=== PATIENT | male | born 1945 | race Caucasian/White ===

== ENCOUNTER 2016-03-15 04:53 | Emergency (ER) | payer MEDICARE ==
[2016-03-15] MEDS ORDERED: HALOPERIDOL 5 MG/ML VIAL (J1630) As Ordered ONE (07:43)
[2016-03-15] MEDS ORDERED: diphenhydrAMINE INJ 50MG/ML VIAL (J1200) As Ordered ONE (07:43)
[2016-03-15 07:51] LABS: BASO % 0.3 % (0.0-1.0); EOS # 0.4 K/mm3 (0.0-0.50); EOS % 4.4 % (0.0-3.0); LARGE UNSTAINED CELL # 0.1 K/mm3 (0.0-0.4); LARGE UNSTAINED CELL % 1.3 % (0.0-4.0); LYMPH # 0.5 K/mm3 (1.5-4.5); LYMPH % 5.7 % (24.0-44.0); MEAN CORPUSCULAR HEMOGLOBIN 32.7 pg (27.0-33.0); MEAN CORPUSCULAR HGB CONC 35.4 g/dl (32.0-36.5); MEAN CORPUSCULAR VOLUME 92.3 fl (80.0-96.0); MONO # 0.7 K/mm3 (0.0-0.8); MONO % 7.4 % (0.0-5.0); NEUTROPHILS # 7.2 K/mm3 (1.8-7.7); NEUTROPHILS % 80.9 % (36.0-66.0); PLATELET COUNT, AUTOMATED 226 k/mm3 (150-450); WHITE BLOOD COUNT 8.8 K/mm3 (4.0-10.0)
[2016-03-15 08:19] LABS: ALBUMIN/GLOBULIN RATIO 0.81 (1.00-1.93); ALKALINE PHOSPHATASE 301 U/L (45-117); ALT/SGPT 317 U/L (12-78); AMYLASE 17 U/L (25-115); ANION GAP 6 MEQ/L (8-16); AST/SGOT 357 U/L (15-37); BILIRUBIN,DIRECT 3.1 MG/DL (0.0-0.2); BILIRUBIN,TOTAL 4.8 MG/DL (0.2-1.0); BLOOD UREA NITROGEN 10 MG/DL (7-18); CALCIUM LEVEL 8.6 MG/DL (8.8-10.2); CARBON DIOXIDE LEVEL 32 MEQ/L (21-32); CHLORIDE LEVEL 102 MEQ/L (98-107); CREATININE FOR GFR 0.89 MG/DL (0.70-1.30); GLOMERULAR FILTRATION RATE > 60.0 (>49); GLUCOSE, FASTING 113 MG/DL (80-110); POTASSIUM SERUM 3.7 MEQ/L (3.5-5.1); SODIUM LEVEL 140 MEQ/L (136-145); TOTAL PROTEIN 6.7 GM/DL (6.4-8.2)
[2016-03-15] MEDS ORDERED: ISOVUE-370 76% 100ML VIAL (Q9967) As Ordered ONE (08:42)
--- NOTE | 2016-03-15 09:21 | REP ---
CT pulmonary angiogram: With IV contrast. History: Chest pain. Comparison studies: CT study of the chest from May 15, 2013. Contrast dose: 100 cc's of Isovue [address] technique: Helical scanning is acquired and overlapping 1.5 mm and contiguous 3 mm axial images are reformatted. In addition, a 3-D work station is deployed to generate thick slab maximum intensity projection images in sagittal and coronal imaging projections. CT pulmonary angiographic findings: There is good opacification of the pulmonary arterial tree and there is no CT evidence of pulmonary embolism. No pleural or pericardial effusion is appreciated. Maximal intensity projection images show no vessel cutoff or filling defect to suggest an embolus. There is a band of plate-like atelectasis in the right lower lobe and another in the left lower lobe versus linear fibrosis. These linear areas are more prominent than on the comparison CT study. A large densely calcified gallstone is visible in the gallbladder unchanged from the prior exam. Adjacent to the medial limb of the left adrenal is an 8 mm nodule. This is unchanged from the study done 2 years ago and is felt to be consistent with a benign adenoma. Adrenals are unchanged bilaterally. There are scattered mediastinal lymph nodes. The largest of these is in the aortopulmonary window region of the left mediastinum. This measures 12 x 27 mm but is unchanged from the study done 2 years earlier. There are two anterior mediastinal lymph nodes also unchanged. No new evidence of adenopathy is seen. The thoracic aorta enhances homogeneously and is normal in caliber and course. No bony destructive lesion is seen. There is no evidence of mass or infiltrate in the lung dunlap. Impression: 1. No CT evidence of pulmonary embolus. 2. Cholelithiasis. 3. Stable mediastinal lymph nodes unchanged from May 15, 2013.4. Bilateral lower lobe linear fibrosis. Signed by Timothy Jaramillo MD 03/15/2016 10:19 A
--- NOTE | 2016-03-15 09:33 | REP ---
CT study of the abdomen and pelvis with IV but without oral contrast: History: Abdominal pain. CT contrast dose: 100 mL of Isovue [address] study January 08, 2016. Findings: Digital dough maker radiographs demonstrate an unremarkable bowel gas pattern. There is linear discoid atelectasis versus fibrosis in the lower lobes bilaterally. No pleural effusion is seen. There is a densely calcified 2.5 cm gallstone within the gallbladder lumen. Minimal gallbladder wall thickening is seen. This is unchanged. Common bile duct is mildly dilated measuring 10 mm in greatest AP dimension. The central intrahepatic ducts are mildly dilated. There is evidence of choledocholithiasis. There are at least three calculi visible within the distal common bile duct, the largest of which measures 8 mm in greatest diameter. The distal most stone is best seen on coronal images and measures 6 mm in diameter. The pancreas is otherwise unremarkable. No adrenal lesion is seen. Kidneys enhance symmetrically. There is a cyst in the anterior cortex of the right kidney, 2.1 cm in diameter. There is another cyst in the upper pole measuring 2.4 cm. There is a 2 mm intrarenal calculus at mid pole level in the left kidney. No retroperitoneal mass or adenopathy is seen. The appendix is surgically absent. There is a Purvis catheter in the urinary bladder. There is a droplet of air within the urinary bladder but there is also some interstitial air in the perineum anterior to the margin of the penis. There is some air along the right spermatic cord as well. Question post instrumentation. The prostate is surgically absent. Seminal vesicles are unremarkable. There is some right pericolic gutter fluid minimal in amount. Bone window settings show no bony destructive or sclerotic lesion. There are degenerative changes in the lumbar spine. No abdominal wall defect is seen. No pelvic or abdominal mass or adenopathy is seen. Impression: 1. Choledocholithiasis with at least three calculi in the distal CBD and dilation of the biliary tract. 2. Cholelithiasis with one calcified 2.5 cm gallstone in the gallbladder. 3. Status post prostatectomy and appendectomy. 4. Purvis catheter in the bladder. There is some subcutaneous emphysematous air in the perineum adjacent to the anterior aspect of the penis and the right spermatic cord of uncertain etiology. Signed by Timothy Jaramillo MD 03/15/2016 10:19 A
[2016-03-15] MEDS ORDERED: ZOSYN 3.375 GM VIAL (J2543) As Ordered ONE (10:28)
--- NOTE | 2016-03-15 11:30 | EDDOCDS ---
Physician Documentation [facility] Name: Benjamin Lake Age: 70 yrs Sex: Male : 1945 Arrival Date: 03/15/2016 Time: 04:53 Bed 14 Private MD: Disposition: 03/15/16 10:42 Transfer ordered to [facility]. Diagnosis are Cholelithiasis - choledocholithiasis wiht abnormal liver function tests; s/p robotic lap prostatectomy with subcutaneous emphysema in perineum , Abdominal and pelvic pain, Hiccough - intractable. - Reason for transfer: Higher level of care. - Accepting physician is thais. - Condition is Critical. - Problem is new. - Symptoms are unchanged. Historical: - Allergies: No known drug Allergies; - Home Meds: 1. Lipitor 20 mg Oral tab 2. [place] 5-325 mg Oral tab 3. aspirin 81 mg Oral tab 4. cyclobenzaprine 10 mg Oral tab 5. Vitamin D Oral 2000 units 6. Flomax 0.4 mg Oral cp24 7. indomethacin 25 mg Oral cap 8. Calcium + Vitamin D 600 mg calcium- 200 unit Oral tab 9. Avapro 150 mg Oral tab 10. atenolol 50 mg Oral tab 11. Klor-Con 10 10 mEq Oral TbER 12. chlorthalidone 25 mg Oral tab 13. Cardizem 120 mg Oral tab 14. 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 No barriers to communication noted, The patient speaks fluent [place]ian, Speaks appropriately for age. - Family history: Not pertinent. - : The pt / caregiver states he / she is not on anticoagulants. Home medication list is obtained from the patient. - Exposure Risk Screening:: None identified. Vital Signs: 03/15 05:11 BP 126 / 66; Pulse 60; Resp 20; Temp 98.1; Pulse Ox 97% ; Weight 90.72 kg / 200 lbs; ko2 Height 5 ft. 9 in. (175.26 cm); Pain 8/10; 05:27 BP 140 / 63 (auto/); jp6 05:28 Pulse 54 MON; Pulse Ox 97% ; jp6 05:42 BP 138 / 66 (auto/); jp6 05:43 Pulse 54 MON; Pulse Ox 98% ; jp6 05:57 BP 130 / 74 (auto/); jp6 05:58 Pulse 56 MON; Pulse Ox 99% ; jp6 06:12 BP 133 / 63 (auto/); js13 06:12 Pulse 58 MON; Pulse Ox 99% ; js13 06:27 BP 135 / 65 (auto/); js13 06:27 Pulse 56 MON; Pulse Ox 97% ; js13 06:42 BP 131 / 70 (auto/); js13 06:42 Pulse 62 MON; Pulse Ox 98% ; js13 06:57 BP 131 / 70 (auto/); js13 06:57 Pulse 62 MON; Resp 16; Pulse Ox 99% on R/A; js13 07:12 BP 130 / 70 (auto/); js13 07:12 Pulse 62 MON; Resp 16; Pulse Ox 97% on R/A; js13 07:27 BP 134 / 73 (auto/); js13 07:27 Pulse 62 MON; Resp 16; Pulse Ox 99% on R/A; js13 07:42 BP 114 / 65 (auto/); js13 07:42 Pulse 52 MON; Resp 16; Pulse Ox 98% on R/A; js13 07:57 BP 147 / 77 (auto/); js13 07:57 Pulse 66 MON; Resp 16; Pulse Ox 98% on R/A; js13 09:12 BP 139 / 78 (auto/); js13 09:12 Pulse 66 MON; Resp 16; Pulse Ox 99% on R/A; js13 09:27 BP 142 / 74 (auto/); js13 09:27 Pulse 60 MON; Resp 16; Pulse Ox 99% on R/A; js13 09:42 BP 169 / 84 (auto/); js13 09:42 Pulse 60 MON; Resp 16; Pulse Ox 99% on R/A; js13 09:57 BP 155 / 82 (auto/); js13 09:57 Pulse 64 MON; Resp 16; Pulse Ox 98% on R/A; js13 10:12 BP 141 / 75 (auto/); js13 10:12 Pulse 60 MON; Resp 16; Pulse Ox 98% on R/A; js13 10:42 BP 156 / 78 (auto/); js13 10:42 Pulse 56 MON; Resp 16; Pulse Ox 100% on R/A; js13 10:57 BP 144 / 75 (auto/); js13 10:57 Pulse 60 MON; Resp 16; Temp 98.5(O); Pulse Ox 100% on R/A; js13 11:27 Pulse 58 MON; Resp 16; Temp 98.5(O); Pulse Ox 100% on R/A; Pain 0/10; js13 11:27 BP 146 / 82 (auto/); js13 05:11 Body Mass Index 29.53 (90.72 kg, 175.26 cm) ko2 MDM: 05:24 [facility] Payment Agreement was scanned into [employer] and attached to record. [facility] 06:39 Financial registration complete. pm4 07:09 IV Saline Lock ordered. cs11 07:09 NS 0.9% 500 ml IV at bolus once ordered. cs11 07:09 Haloperidol 5 mg IVP once ordered. cs11 07:09 diphenhydrAMINE 25 mg IVP once ordered. cs11 07:10 CBC with Diff Ordered. EDMS 07:10 MED Profile Ordered. EDMS 07:10 Liver Profile Ordered. EDMS 07:10 Amylase Ordered. EDMS 07:10 Lipase Ordered. EDMS 07:10 Urinalysis Ordered. EDMS 07:10 Urine Culture Ordered. EDMS 07:10 CT Chest Angio R/O PE Ordered. EDMS 07:10 CT ABD & PELVIS: IV Contrast Only Ordered. EDMS 07:17 Lactic Acid (Hicks tube on ice) Ordered. EDMS 08:13 CBC with Diff Reviewed. ml 08:42 MED Profile Reviewed. ml 08:42 Liver Profile Reviewed. ml 08:42 Amylase Reviewed. ml 08:42 Urinalysis Reviewed. ml 08:42 Lactic Acid (Hicks tube on ice) Reviewed. ml 08:42 Lipase Reviewed. ml 08:43 NS 0.9% 1000 ml IV at 150 mL/hr continuous ordered. ml 10:18 Piperacillin-Tazobactam 3.375 grams IVPB once over 30 mins; dilute in 50mL of NS or D5W ml ordered. 10:19 -Blood Culture (Adults Only), peripheral from different site, or from device/port/PICC ml etc. if present ordered. 10:20 -Blood Culture Ordered. EDMS 10:37 CT Chest Angio R/O PE Reviewed. ml 10:37 CT ABD & PELVIS: IV Contrast Only Reviewed. ml 10:42 -Blood Culture (Adults Only), peripheral from different site, or from device/port/PICC js13 etc. if present complete. 11:24 NS 0.9% 1000 ml IV at 100 mL/hr continuous ordered. js13 Administered Medications: 07:52 Drug: NS 0.9% 500 ml [sodium chloride 0.9 % intravenous solution] Route: IV; Rate: js13 bolus; Site: left antecubital; 09:14 Follow up: IV Status: Completed infusion; IV Intake: 500ml js13 07:52 Drug: Haloperidol 5 mg [haloperidol lactate 5 mg/mL injection solution (1 mL)] Route: js13 IVP; Site: left antecubital; 07:52 Drug: diphenhydrAMINE 25 mg [diphenhydramine 50 mg/mL injection solution (0.5 mL)] js13 Route: IVP; Site: left antecubital; 08:45 Drug: NS 0.9% 1000 ml [sodium chloride 0.9 % intravenous solution] Route: IV; Rate: 150 js13 mL/hr; Site: left antecubital; 11:24 Follow up: IV Status: Infusion discontinued; IV Intake: 450ml js13 10:35 Drug: Piperacillin-Tazobactam 3.375 grams [piperacillin-tazobactam 3.375 gram js13 intravenous solution] Route: IVPB; Infused Over: 30 mins; Site: left antecubital; 11:24 Follow up: IV Status: Completed infusion; IV Intake: 50ml js13 11:20 Drug: NS 0.9% 1000 ml [sodium chloride 0.9 % intravenous solution] Route: IV; Rate: 100 js13 mL/hr; Site: left antecubital; Signatures: Dispatcher [employer] Kendrick Baker MD MD ml Sullivan, JenniferRN RN js13 Angel Farmer DO DO cs11 Teena Manzanares RN RN amanda2 Sonia Walker Jessica, RN RN jp6 Edil Qiu, Reg Reg pm4 The chart was reviewed and I authenticate all verbal orders and agree with the evaluation and treatment provided.Attachments: 05:24 [facility] Payment Agreement [facility] MTDD
--- NOTE | 2016-03-15 11:30 | EDDOCDS ---
Nurse's Notes [facility] Name: Benjamin Lake Age: 70 yrs Sex: Male : 1945 Arrival Date: 03/15/2016 Time: 04:53 Bed 14 Private MD: Diagnosis: Cholelithiasis-choledocholithiasis wiht abnormal liver function tests; s/p robotic lap prostatectomy with subcutaneous emphysema in perineum ;Abdominal and pelvic pain;Hiccough-intractable Presentation: 03/15 05:03 Presenting complaint: Patient states: had prostate surgery Tuesday in [place]. Was d/c ko2 on and got hiccups on the way home. pt states the hiccups haven't gone away and he is starting to feel short of breath. Suicide/Homicide risk assessment- the patient denies having any suicidal and/or homicidal ideations and does not present with any other emotional, behavioral or mental health complaints. Status: Patient is not a senior field service engineer or dependent. Transition of care: patient was not received from another setting of care. 05:03 Method Of Arrival: Walkin/Carried/Asstd ko2 05:15 Adult Sepsis Screening: The patient does not have new or worsening altered mentation. ko2 Patient's respiratory rate is less than 22. Systolic blood pressure is greater than 100. Patient has a qSOFA score of 0- Negative Sepsis Screen. 05:15 Acuity: ZINA Level 3 ko2 Triage Assessment: 05:10 General: Appears distressed, Behavior is cooperative. Neurological: No deficits noted. ko2 Respiratory: Reports shortness of breath from hiccups. : Purvis in place. Musculoskeletal: Range of motion intact in all extremities. Historical: - Allergies: No known drug Allergies; - Home Meds: 1. Lipitor 20 mg Oral tab 2. Halls 5-325 mg Oral tab 3. aspirin 81 mg Oral tab 4. cyclobenzaprine 10 mg Oral tab 5. Vitamin D Oral 2000 units 6. Flomax 0.4 mg Oral cp24 7. indomethacin 25 mg Oral cap 8. Calcium + Vitamin D 600 mg calcium- 200 unit Oral tab 9. Avapro 150 mg Oral tab 10. atenolol 50 mg Oral tab 11. Klor-Con 10 10 mEq Oral TbER 12. chlorthalidone 25 mg Oral tab 13. Cardizem 120 mg Oral tab 14. 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 No barriers to communication noted, The patient speaks fluent Albanian, Speaks appropriately for age. - Family history: Not pertinent. - : The pt / caregiver states he / she is not on anticoagulants. Home medication list is obtained from the patient. - Exposure Risk Screening:: None identified. Screenin:00 Screening information is obtained from the patient. Fall risk: No risks identified. jp6 Assistance ADL's: requires no assistance with activities of daily living. Abuse/DV Screen: The patient / caregiver reports he/she is: not in a situation that causes fear, pain or injury. Nutritional screening: No deficits noted. home support is adequate. 10:57 Advance Directives: There is no active DNR order. js13 Assessment: 06:00 General: Appears distressed, uncomfortable, Behavior is appropriate for age, jp6 cooperative. Pain: Denies pain. Neurological: Level of Consciousness is awake, alert, Oriented to person, place, time. EENT: No deficits noted. Cardiovascular: No deficits noted. Heart tones S1 S2 present. Respiratory: Breath sounds are clear bilaterally. GI: Abdomen is distended, other no real bm since Tuesday Bowel sounds hypoactive in right upper quadrant and left upper quadrant none heard other quadrants Abd is soft and non tender X 4 quads. Reports constipation, hiccups since surgery. : Purvis in place to gravity drainage Urine is blood tinged. Derm: Skin is pink, warm & dry. Musculoskeletal: No deficits noted. 08:07 Adult Sepsis Screening: The patient does not have new or worsening altered mentation. js13 Patient's respiratory rate is less than 22. Systolic blood pressure is greater than 100. Patient has a qSOFA score of 0- Negative Sepsis Screen. General: Appears in no apparent distress, Behavior is appropriate for age, cooperative. Pain: Denies pain. Neurological: Level of Consciousness is awake, alert. Respiratory: Airway is patent Respiratory effort is even, unlabored, Respiratory pattern is regular, symmetrical. : Purvis in place to gravity drainage Urine is blood tinged. Derm: Skin is pink, warm & dry. 09:22 General: Appears in no apparent distress, comfortable, Behavior is appropriate for age, js13 cooperative. General: Hiccups are gone.. Pain: Denies pain. Neurological: Level of Consciousness is awake, alert. Cardiovascular: Rhythm is sinus rhythm Chest pain is denied. Respiratory: Airway is patent Respiratory effort is even, unlabored, Respiratory pattern is regular, symmetrical, Breath sounds are clear. GI: Abdomen is distended, Bowel sounds hypoactive in left upper quadrant and right upper quadrant Abd is soft and non tender. Derm: Skin is pink, warm & dry. 10:00 Adult Sepsis Screening: The patient does not have new or worsening altered mentation. js13 Patient's respiratory rate is less than 22. Systolic blood pressure is greater than 100. Patient has a qSOFA score of 0- Negative Sepsis Screen. 10:43 General: Appears in no apparent distress, comfortable, Behavior is appropriate for age, js13 cooperative. Pain: Denies pain. Neurological: Level of Consciousness is awake, alert. Cardiovascular: Rhythm is sinus rhythm Chest pain is denied. Respiratory: Airway is patent Respiratory effort is even, unlabored, Respiratory pattern is regular, symmetrical, Breath sounds are clear. GI: Abdomen is distended, Bowel sounds hypoactive in left upper quadrant and right upper quadrant Abd is soft and non tender. Derm: Skin is pink, warm & dry. 11:22 General: Appears in no apparent distress, comfortable, Behavior is appropriate for age, js13 cooperative. Pain: Denies pain. Neurological: Level of Consciousness is awake, alert. Cardiovascular: Rhythm is sinus rhythm Chest pain is denied. Respiratory: Airway is patent Respiratory effort is even, unlabored, Respiratory pattern is regular, symmetrical, Breath sounds are clear. GI: Abdomen is distended, Bowel sounds hypoactive in left upper quadrant and right upper quadrant Abd is soft and non tender. : Purvis in place to gravity drainage Urine is blood tinged. Derm: Skin is pink, warm & dry. Vital Signs: 05:11 BP 126 / 66; Pulse 60; Resp 20; Temp 98.1; Pulse Ox 97% ; Weight 90.72 kg; Height 5 ft. ko2 9 in. (175.26 cm); Pain 8/10; 05:27 BP 140 / 63 (auto/); jp6 05:28 Pulse 54 MON; Pulse Ox 97% ; jp6 05:42 BP 138 / 66 (auto/); jp6 05:43 Pulse 54 MON; Pulse Ox 98% ; jp6 05:57 BP 130 / 74 (auto/); jp6 05:58 Pulse 56 MON; Pulse Ox 99% ; jp6 06:12 BP 133 / 63 (auto/); js13 06:12 Pulse 58 MON; Pulse Ox 99% ; js13 06:27 BP 135 / 65 (auto/); js13 06:27 Pulse 56 MON; Pulse Ox 97% ; js13 06:42 BP 131 / 70 (auto/); js13 06:42 Pulse 62 MON; Pulse Ox 98% ; js13 06:57 BP 131 / 70 (auto/); js13 06:57 Pulse 62 MON; Resp 16; Pulse Ox 99% on R/A; js13 07:12 BP 130 / 70 (auto/); js13 07:12 Pulse 62 MON; Resp 16; Pulse Ox 97% on R/A; js13 07:27 BP 134 / 73 (auto/); js13 07:27 Pulse 62 MON; Resp 16; Pulse Ox 99% on R/A; js13 07:42 BP 114 / 65 (auto/); js13 07:42 Pulse 52 MON; Resp 16; Pulse Ox 98% on R/A; js13 07:57 BP 147 / 77 (auto/); js13 07:57 Pulse 66 MON; Resp 16; Pulse Ox 98% on R/A; js13 09:12 BP 139 / 78 (auto/); js13 09:12 Pulse 66 MON; Resp 16; Pulse Ox 99% on R/A; js13 09:27 BP 142 / 74 (auto/); js13 09:27 Pulse 60 MON; Resp 16; Pulse Ox 99% on R/A; js13 09:42 BP 169 / 84 (auto/); js13 09:42 Pulse 60 MON; Resp 16; Pulse Ox 99% on R/A; js13 09:57 BP 155 / 82 (auto/); js13 09:57 Pulse 64 MON; Resp 16; Pulse Ox 98% on R/A; js13 10:12 BP 141 / 75 (auto/); js13 10:12 Pulse 60 MON; Resp 16; Pulse Ox 98% on R/A; js13 10:42 BP 156 / 78 (auto/); js13 10:42 Pulse 56 MON; Resp 16; Pulse Ox 100% on R/A; js13 10:57 BP 144 / 75 (auto/); js13 10:57 Pulse 60 MON; Resp 16; Temp 98.5(O); Pulse Ox 100% on R/A; js13 11:27 Pulse 58 MON; Resp 16; Temp 98.5(O); Pulse Ox 100% on R/A; Pain 0/10; js13 11:27 BP 146 / 82 (auto/); js13 05:11 Body Mass Index 29.53 (90.72 kg, 175.26 cm) ko Vitals: 05:11 Log In Time: March 15, 2016 at 04:53. ko2 ED Course: 04:55 Patient visited by Edil Qiu, Reg. pm4 04:55 Patient moved to Waiting pm4 05:03 Patient moved to Triage 1 ko2 05:15 Triage Initiated ko2 05:15 Patient moved to Waiting ko2 05:23 Patient moved to Feb 05:24 [facility] Payment Agreement was scanned into [employer] and attached to record. [facility] 05:30 Patient visited by Ivone Amaro PCA. mary 05:30 Pt greeted and oriented to ED. Patient advised of names of staff involved in care, mary location of call apple, wait times and NPO status. Accompanied by Significant Other, Patient has correct armband on for positive identification. Placed in gown. Bed in low position. Call light in reach. Side rails up X2. lunchroom monitor on. Pulse ox on. NIBP on. 05:35 Dawn Griffith RN is Primary Nurse. jp6 06:00 Patient visited by Dawn Griffith RN. jp6 06:38 Angel Farmer DO is Attending Physician. cs11 06:38 Patient visited by Angel Farmer DO. cs11 07:14 Patient visited by Isabelle Lala PCA. jlf 07:15 Attending Physician role handed off by Angel Farmer DO ml 07:15 Kendrick Zhuo MD is Attending Physician. ml 07:52 Inserted saline lock: 18 gauge in left antecubital area and blood collected. The js13 patient tolerated the procedure well. No procedures done that require assistance. Labs drawn. (by ED staff). Sent per order to lab. 08:09 Patient visited by Jennifer Angeles RN. js13 08:42 Patient visited by Isabelle Lala PCA. jlf 09:23 Patient visited by Jennifer Angeles RN. js13 09:47 CT Chest Angio R/O PE Returned. EDMS 09:47 CT ABD & PELVIS: IV Contrast Only Returned. EDMS 10:22 Patient visited by Talisha Levy RN. ead 10:29 -Blood Culture Sent. ead 10:44 Patient visited by Jennifer Angeles RN. js13 10:47 CT Chest Angio R/O PE Returned. EDMS 10:47 CT ABD & PELVIS: IV Contrast Only Returned. EDMS 10:57 The patient / caregiver is instructed regarding the plan of care and ED course. js13 Administered Medications: 07:52 Drug: NS 0.9% 500 ml [sodium chloride 0.9 % intravenous solution] Route: IV; Rate: js13 bolus; Site: left antecubital; 09:14 Follow up: IV Status: Completed infusion; IV Intake: 500ml js13 07:52 Drug: Haloperidol 5 mg [haloperidol lactate 5 mg/mL injection solution (1 mL)] Route: js13 IVP; Site: left antecubital; 07:52 Drug: diphenhydrAMINE 25 mg [diphenhydramine 50 mg/mL injection solution (0.5 mL)] js13 Route: IVP; Site: left antecubital; 08:45 Drug: NS 0.9% 1000 ml [sodium chloride 0.9 % intravenous solution] Route: IV; Rate: 150 js13 mL/hr; Site: left antecubital; 11:24 Follow up: IV Status: Infusion discontinued; IV Intake: 450ml js13 10:35 Drug: Piperacillin-Tazobactam 3.375 grams [piperacillin-tazobactam 3.375 gram js13 intravenous solution] Route: IVPB; Infused Over: 30 mins; Site: left antecubital; 11:24 Follow up: IV Status: Completed infusion; IV Intake: 50ml js13 11:20 Drug: NS 0.9% 1000 ml [sodium chloride 0.9 % intravenous solution] Route: IV; Rate: 100 js13 mL/hr; Site: left antecubital; Intake: 09:14 IV: 500.00ml; Total: 500.00ml. js13 11:24 IV: 450.00ml; Total: 950.00ml. js13 11:24 IV: 50.00ml; Total: 1000.00ml. js13 Output: 11:28 Urine: 900.00ml (Purvis); Total: 900.00ml. js13 Order Results: Lab Order: CBC with Diff; SPEC'M 03/15/16 07:40 Test: WHITE BLOOD COUNT; Value: 8.8; Range: 4.0-10.0; Units: K/mm3; Status: F Test: RED BLOOD COUNT; Value: 4.21; Range: 4.30-6.10; Abnormal: Below low normal; Units: M/mm3; Status: F Test: HEMOGLOBIN; Value: 13.8; Range: 14.0-18.0; Abnormal: Below low normal; Units: g/dl; Status: F Test: HEMATOCRIT; Value: 38.9; Range: 42.0-52.0; Abnormal: Below low normal; Units: %; Status: F Test: MEAN CORPUSCULAR VOLUME; Value: 92.3; Range: 80.0-96.0; Units: fl; Status: F Test: MEAN CORPUSCULAR HEMOGLOBIN; Value: 32.7; Range: 27.0-33.0; Units: pg; Status: F Test: MEAN CORPUSCULAR HGB CONC; Value: 35.4; Range: 32.0-36.5; Units: g/dl; Status: F Test: RED CELL DISTRIBUTION WIDTH; Value: 13.0; Range: 11.5-14.5; Units: %; Status: F Test: PLATELET COUNT, AUTOMATED; Value: 226; Range: 150-450; Units: k/mm3; Status: F Test: NEUTROPHILS %; Value: 80.9; Range: 36.0-66.0; Abnormal: Above high normal; Units: %; Status: F Test: LYMPH %; Value: 5.7; Range: 24.0-44.0; Abnormal: Below low normal; Units: %; Status: F Test: MONO %; Value: 7.4; Range: 0.0-5.0; Abnormal: Above high normal; Units: %; Status: F Test: EOS %; Value: 4.4; Range: 0.0-3.0; Abnormal: Above high normal; Units: %; Status: F Test: BASO %; Value: 0.3; Range: 0.0-1.0; Units: %; Status: F Test: LARGE UNSTAINED CELL %; Value: 1.3; Range: 0.0-4.0; Units: %; Status: F Test: NEUTROPHILS #; Value: 7.2; Range: 1.8-7.7; Units: K/mm3; Status: F Test: LYMPH #; Value: 0.5; Range: 1.5-4.5; Abnormal: Below low normal; Units: K/mm3; Status: F Test: MONO #; Value: 0.7; Range: 0.0-0.8; Units: K/mm3; Status: F Test: EOS #; Value: 0.4; Range: 0.0-0.50; Units: K/mm3; Status: F Test: BASO #; Value: 0.0; Range: 0.0-0.2; Units: K/mm3; Status: F Test: LARGE UNSTAINED CELL #; Value: 0.1; Range: 0.0-0.4; Units: K/mm3; Status: F Lab Order: MED Profile; SPEC'M 03/15/16 07:40 Test: GLUCOSE, FASTING; Value: 113; Range: 80-110; Abnormal: Above high normal; Units: MG/DL; Status: F Test: BLOOD UREA NITROGEN; Value: 10; Range: 7-18; Units: MG/DL; Status: F Test: CREATININE FOR GFR; Value: 0.89; Range: 0.70-1.30; Units: MG/DL; Status: F Test: GLOMERULAR FILTRATION RATE; Value: > 60.0; Range: >49; Status: F Test: SODIUM LEVEL; Value: 140; Range: 136-145; Units: MEQ/L; Status: F Test: POTASSIUM SERUM; Value: 3.7; Range: 3.5-5.1; Units: MEQ/L; Status: F Test: CHLORIDE LEVEL; Value: 102; Range: 98-107; Units: MEQ/L; Status: F Test: CARBON DIOXIDE LEVEL; Value: 32; Range: 21-32; Units: MEQ/L; Status: F Test: ANION GAP; Value: 6; Range: 8-16; Abnormal: Below low normal; Units: MEQ/L; Status: F Test: CALCIUM LEVEL; Value: 8.6; Range: 8.8-10.2; Abnormal: Below low normal; Units: MG/DL; Status: F Test Note: ; Units are mL/min/1.73 m2 Chronic Kidney Disease Staging per NKF: Stage I & II GFR >=60 Normal to Mildly Decreased Stage III GFR 30-59 Moderately Decreased Stage IV GFR 15-29 Severely Decreased Stage V GFR <15 Very Little GFR Left ESRD GFR <15 on CLINICAL TRAINING COORDINATOR Lab Order: Liver Profile; 03/15/16 07:40 Test: AST/SGOT; Value: 357; Range: 15-37; Abnormal: Above high normal; Units: U/L; Status: F Test: ALT/SGPT; Value: 317; Range: 12-78; Abnormal: Above high normal; Units: U/L; Status: F Test: ALKALINE PHOSPHATASE; Value: 301; Range: 45-117; Abnormal: Above high normal; Units: U/L; Status: F Test: BILIRUBIN,TOTAL; Value: 4.8; Range: 0.2-1.0; Abnormal: Above high normal; Units: MG/DL; Status: F Test: BILIRUBIN,DIRECT; Value: 3.1; Range: 0.0-0.2; Abnormal: Above high normal; Units: MG/DL; Status: F Test: TOTAL PROTEIN; Value: 6.7; Range: 6.4-8.2; Units: GM/DL; Status: F Test: ALBUMIN; Value: 3.0; Range: 3.2-5.2; Abnormal: Below low normal; Units: GM/DL; Status: F Test: ALBUMIN/GLOBULIN RATIO; Value: 0.81; Range: 1.00-1.93; Abnormal: Below low normal; Status: F Lab Order: Amylase; 03/15/16 07:40 Test: AMYLASE; Value: 17; Range: 25-115; Abnormal: Below low normal; Units: U/L; Status: F Lab Order: Lipase; 03/15/16 07:40 Test: LIPASE; Value: 87; Range: 73-393; Units: U/L; Status: F Lab Order: Urinalysis; SPEC'M 03/15/16 08:28 Test: APPEARANCE, URINE; Value: CLEAR; Range: CLEAR; Status: F Test: COLOR, URINE; Value: SANAZ; Range: YELLOW; Status: F Test: PH,URINE; Value: 7.0; Range: 5.0-9.0; Units: UNITS; Status: F Test: SPECIFIC GRAVITY URINE AUTO; Value: 1.006; Range: 1.002-1.035; Status: F Test: PROTEIN, URINE AUTO; Value: NEGATIVE; Range: NEGATIVE; Units: mg/dL; Status: F Test: GLUCOSE, URINE (UA) AUTO; Value: NEGATIVE; Range: NEGATIVE; Units: mg/dL; Status: F Test: KETONE, URINE AUTO; Value: NEGATIVE; Range: NEGATIVE; Units: mg/dL; Status: F Test: UROBILINOGEN, URINE AUTO; Value: 4.0; Range: 0.0-2.0; Abnormal: Above high normal; Units: mg/dL; Status: F Test: BILIRUBIN, URINE AUTO; Value: NEGATIVE; Range: NEGATIVE; Status: F Test: NITRITE, URINE AUTO; Value: NEGATIVE; Range: NEGATIVE; Status: F Test: LEUKOCYTE ESTERASE, URINE AUTO; Value: 1+; Range: NEGATIVE; Abnormal: Above high normal; Status: F Test: BLOOD, URINE BLOOD; Value: 3+; Range: NEGATIVE; Abnormal: Above high normal; Status: F Test: WBC, URINE AUTO; Value: 6; Range: 0-3; Abnormal: Above high normal; Units: /HPF; Status: F Test: RBC, URINE AUTO; Value: 13; Range: 0-3; Abnormal: Above high normal; Units: /HPF; Status: F Test: BACTERIA, URINE AUTO; Value: 1+; Range: NEGATIVE; Abnormal: Above high normal; Status: F Test: SQUAMOUS EPITHELIAL CELL UR AU; Value: 0; Range: 0-6; Units: /HPF; Status: F Test: MUCUS, URINE; Value: SMALL; Range: NEGATIVE; Status: F Test: HYALINE CAST, URINE AUTO; Value: 0; Range: 0-1; Units: /LPF; Status: F Lab Order: Lactic Acid (Hicks tube on ice); SPEC'M 03/15/16 07:40 Test: LACTIC ACID LEVEL, LACTATE; Value: 2.8; Range: 0.4-2.0; Abnormal: Above upper panic limits; Units: MMOL/L; Status: F Radiology Order: CT Chest Angio R/O PE Test: CT Chest Angio R/O PE REASON FOR EXAMINATION: Chest Pain; CT pulmonary angiogram: With IV contrast.; ; History: Chest pain.; ; Comparison studies: CT study of the chest from May 15, 2013.; ; Contrast dose: 100 cc's of Isovue 370 are administered intravenously.; ; CT technique: Helical scanning is acquired and overlapping 1.5 mm and contiguous; 3 mm axial images are reformatted. In addition, a 3-D work station is deployed; to generate thick slab maximum intensity projection images in sagittal and; coronal imaging projections.; ; CT pulmonary angiographic findings: There is good opacification of the pulmonary; arterial tree and there is no CT evidence of pulmonary embolism. No pleural or; pericardial effusion is appreciated. Maximal intensity projection images show no; vessel cutoff or filling defect to suggest an embolus. There is a band of; plate-like atelectasis in the right lower lobe and another in the left lower lobe; versus linear fibrosis. These linear areas are more prominent than on the; comparison CT study. A large densely calcified gallstone is visible in the; gallbladder unchanged from the prior exam. Adjacent to the medial limb of the; left adrenal is an 8 mm nodule. This is unchanged from the study done 2 years; ago and is felt to be consistent with a benign adenoma. Adrenals are unchanged; bilaterally.; ; There are scattered mediastinal lymph nodes. The largest of these is in the; aortopulmonary window region of the left mediastinum. This measures 12 x 27 mm; but is unchanged from the study done 2 years earlier. There are two anterior; mediastinal lymph nodes also unchanged. No new evidence of adenopathy is seen.; The thoracic aorta enhances homogeneously and is normal in caliber and course.; ; No bony destructive lesion is seen. There is no evidence of mass or infiltrate; in the lung dunlap.; ; Impression:; ; 1. No CT evidence of pulmonary embolus.; ; 2. Cholelithiasis.; ; 3. Stable mediastinal lymph nodes unchanged from May 15, 2013.4. Bilateral; lower lobe linear fibrosis.; ; ; ; ; Signed by; Timothy Jaramillo MD 03/15/2016 10:19 A; Radiology Order: CT ABD & PELVIS: IV Contrast Only Test: CT ABD & PELVIS: IV Contrast Only REASON FOR EXAMINATION: Abdomen Pain; CT study of the abdomen and pelvis with IV but without oral contrast:; ; History: Abdominal pain.; ; CT contrast dose: 100 mL of Isovue 370 is administered.; ; Comparison CT study January 08, 2016.; ; Findings: Digital band salvager radiographs demonstrate an unremarkable bowel gas; pattern. There is linear discoid atelectasis versus fibrosis in the lower lobes; bilaterally. No pleural effusion is seen. There is a densely calcified 2.5 cm; gallstone within the gallbladder lumen. Minimal gallbladder wall thickening is; seen. This is unchanged. Common bile duct is mildly dilated measuring 10 mm in; greatest AP dimension. The central intrahepatic ducts are mildly dilated. There; is evidence of choledocholithiasis. There are at least three calculi visible; within the distal common bile duct, the largest of which measures 8 mm in; greatest diameter. The distal most stone is best seen on coronal images and; measures 6 mm in diameter. The pancreas is otherwise unremarkable. No adrenal; lesion is seen. Kidneys enhance symmetrically. There is a cyst in the anterior; cortex of the right kidney, 2.1 cm in diameter. There is another cyst in the; upper pole measuring 2.4 cm. There is a 2 mm intrarenal calculus at mid pole; level in the left kidney. No retroperitoneal mass or adenopathy is seen.; ; The appendix is surgically absent. There is a Purvis catheter in the urinary; bladder. There is a droplet of air within the urinary bladder but there is also; some interstitial air in the perineum anterior to the margin of the penis. There; is some air along the right spermatic cord as well. Question post; instrumentation. The prostate is surgically absent. Seminal vesicles are; unremarkable. There is some right pericolic gutter fluid minimal in amount.; ; Bone window settings show no bony destructive or sclerotic lesion. There are; degenerative changes in the lumbar spine. No abdominal wall defect is seen. No; pelvic or abdominal mass or adenopathy is seen.; ; Impression:; ; 1. Choledocholithiasis with at least three calculi in the distal CBD and; dilation of the biliary tract.; ; 2. Cholelithiasis with one calcified 2.5 cm gallstone in the gallbladder.; ; 3. Status post prostatectomy and appendectomy.; ; 4. Purvis catheter in the bladder. There is some subcutaneous emphysematous air; in the perineum adjacent to the anterior aspect of the penis and the right; spermatic cord of uncertain etiology.; ; ; Signed by; Timothy Jaramillo MD 03/15/2016 10:19 A; Outcome: 10:42 ER care complete, transfer ordered by Provider. 10:57 Discharge Assessment: Patient awake, alert and oriented x 3. No cognitive and/or js13 functional deficits noted. Patient verbalized understanding of disposition instructions. patient administered narcotics - no. The following High Risk Discharge criteria are identified: None. Transferred to [facility]. by EMS ground [facility] report to accompanying personnel Joel Peters [employer] [facility] [facility] EMT, Transfer form completed. x-rays sent w/ patient Note: Report called to Lv Menchaca RN. Condition: stable. CT Study completed. Property :Personal belongings accompany Pt. 11:29 Patient left the ED. js13 Signatures: Dispatcher [employer] EDMS Kendrick Zhou MD MD ml Newman, Jill New, RN RN Ivone Quigley, LANDSCAPE CREW MEMBER LANDSCAPE [employer]W MEMBER mary Jennifer Angeles,RN RN js13 Angel Farmer, DO cs11 Isabelle Lala, LANDSCAPE CREW MEMBER LANDSCAPE CREW MEMBER jlf Talisha Levy,RN RN Teena Joshua,RN RN Sonia Guan Jessica,RN RN jp6 Edil Qiu, Reg Reg pm4 Corrections: (The following items were deleted from the chart) 06:11 05:30 BP 151 / 77 Auto; jp6 jp6 06:11 05:30 Pulse 72bpm; Monitor; Pulse Ox 94%; jp6 jp6 06:11 05:45 BP 146 / 81 Auto; jp6 jp6 06:11 05:45 Pulse 72bpm; Monitor; Pulse Ox 94%; jp6 jp6 06:11 06:00 BP 131 / 81 Auto; jp6 jp6 06:11 06:00 Pulse 68bpm; Monitor; Pulse Ox 94%; jp6 jp6 09:21 09:20 General: Report given to Sadaf Bragg RN. js13 js13 11:27 11:12 BP 146 / 82 Auto; js js13 11:27 11:12 Pulse 58bpm; MonitorResp 16bpm; Pulse Ox 100% RA; Temp 98.5F Oral; Pain 0/10; [id number] [id number]
--- NOTE | 2016-03-17 12:30 | EDDOCDS ---
Nurse's Notes [facility] Name: Benjamin Lake Age: 70 yrs Sex: Male : 1945 Arrival Date: 03/15/2016 Time: 04:53 Bed 14 Private MD: Diagnosis: Cholelithiasis-choledocholithiasis wiht abnormal liver function tests; s/p robotic lap prostatectomy with subcutaneous emphysema in perineum ;Abdominal and pelvic pain;Hiccough-intractable Presentation: 03/15 05:03 Presenting complaint: Patient states: had prostate surgery Tuesday in [place]. Was d/c ko2 on and got hiccups on the way home. pt states the hiccups haven't gone away and he is starting to feel short of breath. Suicide/Homicide risk assessment- the patient denies having any suicidal and/or homicidal ideations and does not present with any other emotional, behavioral or mental health complaints. Status: Patient is not a line service technician or dependent. Transition of care: patient was not received from another setting of care. 05:03 Method Of Arrival: Walkin/Carried/Asstd ko2 05:15 Adult Sepsis Screening: The patient does not have new or worsening altered mentation. ko2 Patient's respiratory rate is less than 22. Systolic blood pressure is greater than 100. Patient has a qSOFA score of 0- Negative Sepsis Screen. 05:15 Acuity: ZINA Level 3 ko2 Triage Assessment: 05:10 General: Appears distressed, Behavior is cooperative. Neurological: No deficits noted. ko2 Respiratory: Reports shortness of breath from hiccups. : Purvis in place. Musculoskeletal: Range of motion intact in all extremities. Historical: - Allergies: No known drug Allergies; - Home Meds: 1. Lipitor 20 mg Oral tab 2. Salley 5-325 mg Oral tab 3. aspirin 81 mg Oral tab 4. cyclobenzaprine 10 mg Oral tab 5. Vitamin D Oral 2000 units 6. Flomax 0.4 mg Oral cp24 7. indomethacin 25 mg Oral cap 8. Calcium + Vitamin D 600 mg calcium- 200 unit Oral tab 9. Avapro 150 mg Oral tab 10. atenolol 50 mg Oral tab 11. Klor-Con 10 10 mEq Oral TbER 12. chlorthalidone 25 mg Oral tab 13. Cardizem 120 mg Oral tab 14. 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 No barriers to communication noted, The patient speaks fluent Burkinan, Speaks appropriately for age. - Family history: Not pertinent. - : The pt / caregiver states he / she is not on anticoagulants. Home medication list is obtained from the patient. - Exposure Risk Screening:: None identified. Screenin:00 Screening information is obtained from the patient. Fall risk: No risks identified. jp6 Assistance ADL's: requires no assistance with activities of daily living. Abuse/DV Screen: The patient / caregiver reports he/she is: not in a situation that causes fear, pain or injury. Nutritional screening: No deficits noted. home support is adequate. 10:57 Advance Directives: There is no active DNR order. js13 Assessment: 06:00 General: Appears distressed, uncomfortable, Behavior is appropriate for age, jp6 cooperative. Pain: Denies pain. Neurological: Level of Consciousness is awake, alert, Oriented to person, place, time. EENT: No deficits noted. Cardiovascular: No deficits noted. Heart tones S1 S2 present. Respiratory: Breath sounds are clear bilaterally. GI: Abdomen is distended, other no real bm since Tuesday Bowel sounds hypoactive in right upper quadrant and left upper quadrant none heard other quadrants Abd is soft and non tender X 4 quads. Reports constipation, hiccups since surgery. : Purvis in place to gravity drainage Urine is blood tinged. Derm: Skin is pink, warm & dry. Musculoskeletal: No deficits noted. 08:07 Adult Sepsis Screening: The patient does not have new or worsening altered mentation. js13 Patient's respiratory rate is less than 22. Systolic blood pressure is greater than 100. Patient has a qSOFA score of 0- Negative Sepsis Screen. General: Appears in no apparent distress, Behavior is appropriate for age, cooperative. Pain: Denies pain. Neurological: Level of Consciousness is awake, alert. Respiratory: Airway is patent Respiratory effort is even, unlabored, Respiratory pattern is regular, symmetrical. : Purvis in place to gravity drainage Urine is blood tinged. Derm: Skin is pink, warm & dry. 09:22 General: Appears in no apparent distress, comfortable, Behavior is appropriate for age, js13 cooperative. General: Hiccups are gone.. Pain: Denies pain. Neurological: Level of Consciousness is awake, alert. Cardiovascular: Rhythm is sinus rhythm Chest pain is denied. Respiratory: Airway is patent Respiratory effort is even, unlabored, Respiratory pattern is regular, symmetrical, Breath sounds are clear. GI: Abdomen is distended, Bowel sounds hypoactive in left upper quadrant and right upper quadrant Abd is soft and non tender. Derm: Skin is pink, warm & dry. 10:00 Adult Sepsis Screening: The patient does not have new or worsening altered mentation. js13 Patient's respiratory rate is less than 22. Systolic blood pressure is greater than 100. Patient has a qSOFA score of 0- Negative Sepsis Screen. 10:43 General: Appears in no apparent distress, comfortable, Behavior is appropriate for age, js13 cooperative. Pain: Denies pain. Neurological: Level of Consciousness is awake, alert. Cardiovascular: Rhythm is sinus rhythm Chest pain is denied. Respiratory: Airway is patent Respiratory effort is even, unlabored, Respiratory pattern is regular, symmetrical, Breath sounds are clear. GI: Abdomen is distended, Bowel sounds hypoactive in left upper quadrant and right upper quadrant Abd is soft and non tender. Derm: Skin is pink, warm & dry. 11:22 General: Appears in no apparent distress, comfortable, Behavior is appropriate for age, js13 cooperative. Pain: Denies pain. Neurological: Level of Consciousness is awake, alert. Cardiovascular: Rhythm is sinus rhythm Chest pain is denied. Respiratory: Airway is patent Respiratory effort is even, unlabored, Respiratory pattern is regular, symmetrical, Breath sounds are clear. GI: Abdomen is distended, Bowel sounds hypoactive in left upper quadrant and right upper quadrant Abd is soft and non tender. : Purvis in place to gravity drainage Urine is blood tinged. Derm: Skin is pink, warm & dry. Vital Signs: 05:11 BP 126 / 66; Pulse 60; Resp 20; Temp 98.1; Pulse Ox 97% ; Weight 90.72 kg; Height 5 ft. ko2 9 in. (175.26 cm); Pain 8/10; 05:27 BP 140 / 63 (auto/); jp6 05:28 Pulse 54 MON; Pulse Ox 97% ; jp6 05:42 BP 138 / 66 (auto/); jp6 05:43 Pulse 54 MON; Pulse Ox 98% ; jp6 05:57 BP 130 / 74 (auto/); jp6 05:58 Pulse 56 MON; Pulse Ox 99% ; jp6 06:12 BP 133 / 63 (auto/); js13 06:12 Pulse 58 MON; Pulse Ox 99% ; js13 06:27 BP 135 / 65 (auto/); js13 06:27 Pulse 56 MON; Pulse Ox 97% ; js13 06:42 BP 131 / 70 (auto/); js13 06:42 Pulse 62 MON; Pulse Ox 98% ; js13 06:57 BP 131 / 70 (auto/); js13 06:57 Pulse 62 MON; Resp 16; Pulse Ox 99% on R/A; js13 07:12 BP 130 / 70 (auto/); js13 07:12 Pulse 62 MON; Resp 16; Pulse Ox 97% on R/A; js13 07:27 BP 134 / 73 (auto/); js13 07:27 Pulse 62 MON; Resp 16; Pulse Ox 99% on R/A; js13 07:42 BP 114 / 65 (auto/); js13 07:42 Pulse 52 MON; Resp 16; Pulse Ox 98% on R/A; js13 07:57 BP 147 / 77 (auto/); js13 07:57 Pulse 66 MON; Resp 16; Pulse Ox 98% on R/A; js13 09:12 BP 139 / 78 (auto/); js13 09:12 Pulse 66 MON; Resp 16; Pulse Ox 99% on R/A; js13 09:27 BP 142 / 74 (auto/); js13 09:27 Pulse 60 MON; Resp 16; Pulse Ox 99% on R/A; js13 09:42 BP 169 / 84 (auto/); js13 09:42 Pulse 60 MON; Resp 16; Pulse Ox 99% on R/A; js13 09:57 BP 155 / 82 (auto/); js13 09:57 Pulse 64 MON; Resp 16; Pulse Ox 98% on R/A; js13 10:12 BP 141 / 75 (auto/); js13 10:12 Pulse 60 MON; Resp 16; Pulse Ox 98% on R/A; js13 10:42 BP 156 / 78 (auto/); js13 10:42 Pulse 56 MON; Resp 16; Pulse Ox 100% on R/A; js13 10:57 BP 144 / 75 (auto/); js13 10:57 Pulse 60 MON; Resp 16; Temp 98.5(O); Pulse Ox 100% on R/A; js13 11:27 Pulse 58 MON; Resp 16; Temp 98.5(O); Pulse Ox 100% on R/A; Pain 0/10; js13 11:27 BP 146 / 82 (auto/); js13 05:11 Body Mass Index 29.53 (90.72 kg, 175.26 cm) ko Vitals: 05:11 Log In Time: March 15, 2016 at 04:53. ko2 ED Course: 04:55 Patient visited by Edil Qiu, Reg. pm4 04:55 Patient moved to Waiting pm4 05:03 Patient moved to Triage 1 ko2 05:15 Triage Initiated ko2 05:15 Patient moved to Waiting ko2 05:23 Patient moved to Feb 05:24 [facility] Payment Agreement was scanned into conXt and attached to record. [facility] 05:30 Patient visited by Ivone Amaro PCA. mary 05:30 Pt greeted and oriented to ED. Patient advised of names of staff involved in care, mary location of call apple, wait times and NPO status. Accompanied by Significant Other, Patient has correct armband on for positive identification. Placed in gown. Bed in low position. Call light in reach. Side rails up X2. process improvement analyst on. Pulse ox on. NIBP on. 05:35 Dawn Griffith RN is Primary Nurse. jp6 06:00 Patient visited by Dawn Griffith RN. jp6 06:38 Angel Farmer DO is Attending Physician. cs11 06:38 Patient visited by Angel Farmer DO. cs11 07:14 Patient visited by Isabelle Lala PCA. jlf 07:15 Attending Physician role handed off by Angel Farmer DO ml 07:15 Kendrick Zhou MD is Attending Physician. ml 07:52 Inserted saline lock: 18 gauge in left antecubital area and blood collected. The js13 patient tolerated the procedure well. No procedures done that require assistance. Labs drawn. (by ED staff). Sent per order to lab. 08:09 Patient visited by Jennifer Angeles RN. js13 08:42 Patient visited by Isabelle Lala PCA. jlf 09:23 Patient visited by Jennifer Angeles RN. js13 09:47 CT Chest Angio R/O PE Returned. EDMS 09:47 CT ABD & PELVIS: IV Contrast Only Returned. EDMS 10:22 Patient visited by Talisha Levy RN. ead 10:29 -Blood Culture Sent. ead 10:44 Patient visited by Jennifer Angeles RN. js13 10:47 CT Chest Angio R/O PE Returned. EDMS 10:47 CT ABD & PELVIS: IV Contrast Only Returned. EDMS 10:57 The patient / caregiver is instructed regarding the plan of care and ED course. js13 14:12 T-Sheet-- Draft Copy was scanned into conXt and attached to record. gb 14:12 Radiology Report was scanned into conXt and attached to record. gb Administered Medications: 07:52 Drug: NS 0.9% 500 ml [sodium chloride 0.9 % intravenous solution] Route: IV; Rate: js13 bolus; Site: left antecubital; 09:14 Follow up: IV Status: Completed infusion; IV Intake: 500ml js13 07:52 Drug: Haloperidol 5 mg [haloperidol lactate 5 mg/mL injection solution (1 mL)] Route: js13 IVP; Site: left antecubital; 07:52 Drug: diphenhydrAMINE 25 mg [diphenhydramine 50 mg/mL injection solution (0.5 mL)] js13 Route: IVP; Site: left antecubital; 08:45 Drug: NS 0.9% 1000 ml [sodium chloride 0.9 % intravenous solution] Route: IV; Rate: 150 js13 mL/hr; Site: left antecubital; 11:24 Follow up: IV Status: Infusion discontinued; IV Intake: 450ml js13 10:35 Drug: Piperacillin-Tazobactam 3.375 grams [piperacillin-tazobactam 3.375 gram js13 intravenous solution] Route: IVPB; Infused Over: 30 mins; Site: left antecubital; 11:24 Follow up: IV Status: Completed infusion; IV Intake: 50ml js13 11:20 Drug: NS 0.9% 1000 ml [sodium chloride 0.9 % intravenous solution] Route: IV; Rate: 100 js13 mL/hr; Site: left antecubital; Intake: 09:14 IV: 500.00ml; Total: 500.00ml. js13 11:24 IV: 450.00ml; Total: 950.00ml. js13 11:24 IV: 50.00ml; Total: 1000.00ml. js13 Output: 11:28 Urine: 900.00ml (Purvis); Total: 900.00ml. js13 Order Results: Lab Order: CBC with Diff; SPEC'M 03/15/16 07:40 Test: WHITE BLOOD COUNT; Value: 8.8; Range: 4.0-10.0; Units: K/mm3; Status: F Test: RED BLOOD COUNT; Value: 4.21; Range: 4.30-6.10; Abnormal: Below low normal; Units: M/mm3; Status: F Test: HEMOGLOBIN; Value: 13.8; Range: 14.0-18.0; Abnormal: Below low normal; Units: g/dl; Status: F Test: HEMATOCRIT; Value: 38.9; Range: 42.0-52.0; Abnormal: Below low normal; Units: %; Status: F Test: MEAN CORPUSCULAR VOLUME; Value: 92.3; Range: 80.0-96.0; Units: fl; Status: F Test: MEAN CORPUSCULAR HEMOGLOBIN; Value: 32.7; Range: 27.0-33.0; Units: pg; Status: F Test: MEAN CORPUSCULAR HGB CONC; Value: 35.4; Range: 32.0-36.5; Units: g/dl; Status: F Test: RED CELL DISTRIBUTION WIDTH; Value: 13.0; Range: 11.5-14.5; Units: %; Status: F Test: PLATELET COUNT, AUTOMATED; Value: 226; Range: 150-450; Units: k/mm3; Status: F Test: NEUTROPHILS %; Value: 80.9; Range: 36.0-66.0; Abnormal: Above high normal; Units: %; Status: F Test: LYMPH %; Value: 5.7; Range: 24.0-44.0; Abnormal: Below low normal; Units: %; Status: F Test: MONO %; Value: 7.4; Range: 0.0-5.0; Abnormal: Above high normal; Units: %; Status: F Test: EOS %; Value: 4.4; Range: 0.0-3.0; Abnormal: Above high normal; Units: %; Status: F Test: BASO %; Value: 0.3; Range: 0.0-1.0; Units: %; Status: F Test: LARGE UNSTAINED CELL %; Value: 1.3; Range: 0.0-4.0; Units: %; Status: F Test: NEUTROPHILS #; Value: 7.2; Range: 1.8-7.7; Units: K/mm3; Status: F Test: LYMPH #; Value: 0.5; Range: 1.5-4.5; Abnormal: Below low normal; Units: K/mm3; Status: F Test: MONO #; Value: 0.7; Range: 0.0-0.8; Units: K/mm3; Status: F Test: EOS #; Value: 0.4; Range: 0.0-0.50; Units: K/mm3; Status: F Test: BASO #; Value: 0.0; Range: 0.0-0.2; Units: K/mm3; Status: F Test: LARGE UNSTAINED CELL #; Value: 0.1; Range: 0.0-0.4; Units: K/mm3; Status: F Lab Order: MED Profile; SPEC'M 03/15/16 07:40 Test: GLUCOSE, FASTING; Value: 113; Range: 80-110; Abnormal: Above high normal; Units: MG/DL; Status: F Test: BLOOD UREA NITROGEN; Value: 10; Range: 7-18; Units: MG/DL; Status: F Test: CREATININE FOR GFR; Value: 0.89; Range: 0.70-1.30; Units: MG/DL; Status: F Test: GLOMERULAR FILTRATION RATE; Value: > 60.0; Range: >49; Status: F Test: SODIUM LEVEL; Value: 140; Range: 136-145; Units: MEQ/L; Status: F Test: POTASSIUM SERUM; Value: 3.7; Range: 3.5-5.1; Units: MEQ/L; Status: F Test: CHLORIDE LEVEL; Value: 102; Range: 98-107; Units: MEQ/L; Status: F Test: CARBON DIOXIDE LEVEL; Value: 32; Range: 21-32; Units: MEQ/L; Status: F Test: ANION GAP; Value: 6; Range: 8-16; Abnormal: Below low normal; Units: MEQ/L; Status: F Test: CALCIUM LEVEL; Value: 8.6; Range: 8.8-10.2; Abnormal: Below low normal; Units: MG/DL; Status: F Test Note: ; Units are mL/min/1.73 m2 Chronic Kidney Disease Staging per NKF: Stage I & II GFR >=60 Normal to Mildly Decreased Stage III GFR 30-59 Moderately Decreased Stage IV GFR 15-29 Severely Decreased Stage V GFR <15 Very Little GFR Left ESRD GFR <15 on SCIENTIFIC RESEARCH MANAGER Lab Order: Liver Profile; SPEC'03/15/16 07:40 Test: AST/SGOT; Value: 357; Range: 15-37; Abnormal: Above high normal; Units: U/L; Status: F Test: ALT/SGPT; Value: 317; Range: 12-78; Abnormal: Above high normal; Units: U/L; Status: F Test: ALKALINE PHOSPHATASE; Value: 301; Range: 45-117; Abnormal: Above high normal; Units: U/L; Status: F Test: BILIRUBIN,TOTAL; Value: 4.8; Range: 0.2-1.0; Abnormal: Above high normal; Units: MG/DL; Status: F Test: BILIRUBIN,DIRECT; Value: 3.1; Range: 0.0-0.2; Abnormal: Above high normal; Units: MG/DL; Status: F Test: TOTAL PROTEIN; Value: 6.7; Range: 6.4-8.2; Units: GM/DL; Status: F Test: ALBUMIN; Value: 3.0; Range: 3.2-5.2; Abnormal: Below low normal; Units: GM/DL; Status: F Test: ALBUMIN/GLOBULIN RATIO; Value: 0.81; Range: 1.00-1.93; Abnormal: Below low normal; Status: F Lab Order: Amylase; SPEC'03/15/16 07:40 Test: AMYLASE; Value: 17; Range: 25-115; Abnormal: Below low normal; Units: U/L; Status: F Lab Order: Lipase; SPEC'M 03/15/16 07:40 Test: LIPASE; Value: 87; Range: 73-393; Units: U/L; Status: F Lab Order: Urinalysis; SPEC'M 03/15/16 08:28 Test: APPEARANCE, URINE; Value: CLEAR; Range: CLEAR; Status: F Test: COLOR, URINE; Value: SANAZ; Range: YELLOW; Status: F Test: PH,URINE; Value: 7.0; Range: 5.0-9.0; Units: UNITS; Status: F Test: SPECIFIC GRAVITY URINE AUTO; Value: 1.006; Range: 1.002-1.035; Status: F Test: PROTEIN, URINE AUTO; Value: NEGATIVE; Range: NEGATIVE; Units: mg/dL; Status: F Test: GLUCOSE, URINE (UA) AUTO; Value: NEGATIVE; Range: NEGATIVE; Units: mg/dL; Status: F Test: KETONE, URINE AUTO; Value: NEGATIVE; Range: NEGATIVE; Units: mg/dL; Status: F Test: UROBILINOGEN, URINE AUTO; Value: 4.0; Range: 0.0-2.0; Abnormal: Above high normal; Units: mg/dL; Status: F Test: BILIRUBIN, URINE AUTO; Value: NEGATIVE; Range: NEGATIVE; Status: F Test: NITRITE, URINE AUTO; Value: NEGATIVE; Range: NEGATIVE; Status: F Test: LEUKOCYTE ESTERASE, URINE AUTO; Value: 1+; Range: NEGATIVE; Abnormal: Above high normal; Status: F Test: BLOOD, URINE BLOOD; Value: 3+; Range: NEGATIVE; Abnormal: Above high normal; Status: F Test: WBC, URINE AUTO; Value: 6; Range: 0-3; Abnormal: Above high normal; Units: /HPF; Status: F Test: RBC, URINE AUTO; Value: 13; Range: 0-3; Abnormal: Above high normal; Units: /HPF; Status: F Test: BACTERIA, URINE AUTO; Value: 1+; Range: NEGATIVE; Abnormal: Above high normal; Status: F Test: SQUAMOUS EPITHELIAL CELL UR AU; Value: 0; Range: 0-6; Units: /HPF; Status: F Test: MUCUS, URINE; Value: SMALL; Range: NEGATIVE; Status: F Test: HYALINE CAST, URINE AUTO; Value: 0; Range: 0-1; Units: /LPF; Status: F Lab Order: Urine Culture; SPEC'M 03/15/16 08:28 Test: URINE CULTURE; Value: <EXTERNAL COMMENT eCWMed> FULL REPORT IN LAB NOTES (eCW and Medent).; Status: F Test: URINE CULTURE; Value: URINE CULTURE RESULT NO GROWTH; Status: F Lab Order: Lactic Acid (Hicks tube on ice); SPEC'M 03/15/16 07:40 Test: LACTIC ACID LEVEL, LACTATE; Value: 2.8; Range: 0.4-2.0; Abnormal: Above upper panic limits; Units: MMOL/L; Status: F Lab Order: -Blood Culture; SPEC'M 03/15/16 10:29 Test: BLOOD CULTURE; Value: No growth after 24 hours . All specimens observed; Status: F Test: BLOOD CULTURE; Value: for 5 days. Results final at that time.; Status: F Test: BLOOD CULTURE; Value: No Growth after 48 hours. All Specimens observed; Status: F Test: BLOOD CULTURE; Value: for 7 days. Results final at that time.; Status: F Radiology Order: CT Chest Angio R/O PE Test: CT Chest Angio R/O PE REASON FOR EXAMINATION: Chest Pain; CT pulmonary angiogram: With IV contrast.; ; History: Chest pain.; ; Comparison studies: CT study of the chest from May 15, 2013.; ; Contrast dose: 100 cc's of Isovue 370 are administered intravenously.; ; CT technique: Helical scanning is acquired and overlapping 1.5 mm and contiguous; 3 mm axial images are reformatted. In addition, a 3-D work station is deployed; to generate thick slab maximum intensity projection images in sagittal and; coronal imaging projections.; ; CT pulmonary angiographic findings: There is good opacification of the pulmonary; arterial tree and there is no CT evidence of pulmonary embolism. No pleural or; pericardial effusion is appreciated. Maximal intensity projection images show no; vessel cutoff or filling defect to suggest an embolus. There is a band of; plate-like atelectasis in the right lower lobe and another in the left lower lobe; versus linear fibrosis. These linear areas are more prominent than on the; comparison CT study. A large densely calcified gallstone is visible in the; gallbladder unchanged from the prior exam. Adjacent to the medial limb of the; left adrenal is an 8 mm nodule. This is unchanged from the study done 2 years; ago and is felt to be consistent with a benign adenoma. Adrenals are unchanged; bilaterally.; ; There are scattered mediastinal lymph nodes. The largest of these is in the; aortopulmonary window region of the left mediastinum. This measures 12 x 27 mm; but is unchanged from the study done 2 years earlier. There are two anterior; mediastinal lymph nodes also unchanged. No new evidence of adenopathy is seen.; The thoracic aorta enhances homogeneously and is normal in caliber and course.; ; No bony destructive lesion is seen. There is no evidence of mass or infiltrate; in the lung dunlap.; ; Impression:; ; 1. No CT evidence of pulmonary embolus.; ; 2. Cholelithiasis.; ; 3. Stable mediastinal lymph nodes unchanged from May 15, 2013.4. Bilateral; lower lobe linear fibrosis.; ; ; ; ; Signed by; Timothy Jaramillo MD 03/15/2016 10:19 A; Radiology Order: CT ABD & PELVIS: IV Contrast Only Test: CT ABD & PELVIS: IV Contrast Only REASON FOR EXAMINATION: Abdomen Pain; CT study of the abdomen and pelvis with IV but without oral contrast:; ; History: Abdominal pain.; ; CT contrast dose: 100 mL of Isovue 370 is administered.; ; Comparison CT study January 08, 2016.; ; Findings: Digital zinc miner blasting radiographs demonstrate an unremarkable bowel gas; pattern. There is linear discoid atelectasis versus fibrosis in the lower lobes; bilaterally. No pleural effusion is seen. There is a densely calcified 2.5 cm; gallstone within the gallbladder lumen. Minimal gallbladder wall thickening is; seen. This is unchanged. Common bile duct is mildly dilated measuring 10 mm in; greatest AP dimension. The central intrahepatic ducts are mildly dilated. There; is evidence of choledocholithiasis. There are at least three calculi visible; within the distal common bile duct, the largest of which measures 8 mm in; greatest diameter. The distal most stone is best seen on coronal images and; measures 6 mm in diameter. The pancreas is otherwise unremarkable. No adrenal; lesion is seen. Kidneys enhance symmetrically. There is a cyst in the anterior; cortex of the right kidney, 2.1 cm in diameter. There is another cyst in the; upper pole measuring 2.4 cm. There is a 2 mm intrarenal calculus at mid pole; level in the left kidney. No retroperitoneal mass or adenopathy is seen.; ; The appendix is surgically absent. There is a Purvis catheter in the urinary; bladder. There is a droplet of air within the urinary bladder but there is also; some interstitial air in the perineum anterior to the margin of the penis. There; is some air along the right spermatic cord as well. Question post; instrumentation. The prostate is surgically absent. Seminal vesicles are; unremarkable. There is some right pericolic gutter fluid minimal in amount.; ; Bone window settings show no bony destructive or sclerotic lesion. There are; degenerative changes in the lumbar spine. No abdominal wall defect is seen. No; pelvic or abdominal mass or adenopathy is seen.; ; Impression:; ; 1. Choledocholithiasis with at least three calculi in the distal CBD and; dilation of the biliary tract.; ; 2. Cholelithiasis with one calcified 2.5 cm gallstone in the gallbladder.; ; 3. Status post prostatectomy and appendectomy.; ; 4. Purvis catheter in the bladder. There is some subcutaneous emphysematous air; in the perineum adjacent to the anterior aspect of the penis and the right; spermatic cord of uncertain etiology.; ; ; Signed by; Timothy Jaramillo MD 03/15/2016 10:19 A; Outcome: 10:42 ER care complete, transfer ordered by Provider. 10:57 Discharge Assessment: Patient awake, alert and oriented x 3. No cognitive and/or js13 functional deficits noted. Patient verbalized understanding of disposition instructions. patient administered narcotics - no. The following High Risk Discharge criteria are identified: None. Transferred to [facility]. by EMS ground [facility] ambulance report to accompanying personnel Joel Peters Medical Record Coder N[facility] Parker EMT, Transfer form completed. x-rays sent w/ patient Note: Report called to Lv Menchaca RN. Condition: stable. CT Study completed. Property :Personal belongings accompany Pt. 11:29 Patient left the ED. js13 Signatures: Dispatcher [employer] EDMS Kendrick Zhou MD MD ml Newman, Jill New, RN RN jan Barnhardt, Janie, Reg Reg gb Prem, Ivnoe, CYLINDER WORKER CYLINDER WORKER mary Jennifer AngelesRN RN js13 Angel Farmer DO DO cs11 Isabelle Lala, CYLINDER WORKER CYLINDER WORKER jlf Talisha Levy,RN RN Teena Joshua,RN RN Sonia Guan JessicaRN RN jp6 Edil Qiu, Reg Reg pm4 Corrections: (The following items were deleted from the chart) 06:11 05:30 BP 151 / 77 Auto; jp6 jp6 06:11 05:30 Pulse 72bpm; Monitor; Pulse Ox 94%; jp6 jp6 06:11 05:45 BP 146 / 81 Auto; jp6 jp6 06:11 05:45 Pulse 72bpm; Monitor; Pulse Ox 94%; jp6 jp6 06:11 06:00 BP 131 / 81 Auto; jp6 jp6 06:11 06:00 Pulse 68bpm; Monitor; Pulse Ox 94%; jp6 jp6 09:21 09:20 General: Report given to Sadaf Bragg RN. js13 js13 11:27 11:12 BP 146 / 82 Auto; js13 js13 11:27 11:12 Pulse 58bpm; MonitorResp 16bpm; Pulse Ox 100% RA; Temp 98.5F Oral; Pain 0/10; [id number] Chart Complete MTDD
--- NOTE | 2016-03-17 12:30 | EDDOCDS ---
Physician Documentation [facility] Name: Benjamin Lake Age: 70 yrs Sex: Male : 1945 Arrival Date: 03/15/2016 Time: 04:53 Bed 14 Private MD: Disposition: 03/15 21:04 Critical Care:. ml Disposition: 03/15/16 10:42 Transfer ordered to [facility]. Diagnosis are Cholelithiasis - choledocholithiasis wiht abnormal liver function tests; s/p robotic lap prostatectomy with subcutaneous emphysema in perineum , Abdominal and pelvic pain, Hiccough - intractable. - Reason for transfer: Higher level of care. - Accepting physician is plascencia. - Condition is Critical. - Problem is new. - Symptoms are unchanged. Historical: - Allergies: No known drug Allergies; - Home Meds: 1. Lipitor 20 mg Oral tab 2. [place] 5-325 mg Oral tab 3. aspirin 81 mg Oral tab 4. cyclobenzaprine 10 mg Oral tab 5. Vitamin D Oral 2000 units 6. Flomax 0.4 mg Oral cp24 7. indomethacin 25 mg Oral cap 8. Calcium + Vitamin D 600 mg calcium- 200 unit Oral tab 9. Avapro 150 mg Oral tab 10. atenolol 50 mg Oral tab 11. Klor-Con 10 10 mEq Oral TbER 12. chlorthalidone 25 mg Oral tab 13. Cardizem 120 mg Oral tab 14. 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 No barriers to communication noted, The patient speaks fluent Romansh, Speaks appropriately for age. - Family history: Not pertinent. - : The pt / caregiver states he / she is not on anticoagulants. Home medication list is obtained from the patient. - Exposure Risk Screening:: None identified. Vital Signs: 05:11 BP 126 / 66; Pulse 60; Resp 20; Temp 98.1; Pulse Ox 97% ; Weight 90.72 kg / 200 lbs; ko2 Height 5 ft. 9 in. (175.26 cm); Pain 8/10; 05:27 BP 140 / 63 (auto/); jp6 05:28 Pulse 54 MON; Pulse Ox 97% ; jp6 05:42 BP 138 / 66 (auto/); jp6 05:43 Pulse 54 MON; Pulse Ox 98% ; jp6 05:57 BP 130 / 74 (auto/); jp6 05:58 Pulse 56 MON; Pulse Ox 99% ; jp6 06:12 BP 133 / 63 (auto/); js13 06:12 Pulse 58 MON; Pulse Ox 99% ; js13 06:27 BP 135 / 65 (auto/); js13 06:27 Pulse 56 MON; Pulse Ox 97% ; js13 06:42 BP 131 / 70 (auto/); js13 06:42 Pulse 62 MON; Pulse Ox 98% ; js13 06:57 BP 131 / 70 (auto/); js13 06:57 Pulse 62 MON; Resp 16; Pulse Ox 99% on R/A; js13 07:12 BP 130 / 70 (auto/); js13 07:12 Pulse 62 MON; Resp 16; Pulse Ox 97% on R/A; js13 07:27 BP 134 / 73 (auto/); js13 07:27 Pulse 62 MON; Resp 16; Pulse Ox 99% on R/A; js13 07:42 BP 114 / 65 (auto/); js13 07:42 Pulse 52 MON; Resp 16; Pulse Ox 98% on R/A; js13 07:57 BP 147 / 77 (auto/); js13 07:57 Pulse 66 MON; Resp 16; Pulse Ox 98% on R/A; js13 09:12 BP 139 / 78 (auto/); js13 09:12 Pulse 66 MON; Resp 16; Pulse Ox 99% on R/A; js13 09:27 BP 142 / 74 (auto/); js13 09:27 Pulse 60 MON; Resp 16; Pulse Ox 99% on R/A; js13 09:42 BP 169 / 84 (auto/); js13 09:42 Pulse 60 MON; Resp 16; Pulse Ox 99% on R/A; js13 09:57 BP 155 / 82 (auto/); js13 09:57 Pulse 64 MON; Resp 16; Pulse Ox 98% on R/A; js13 10:12 BP 141 / 75 (auto/); js13 10:12 Pulse 60 MON; Resp 16; Pulse Ox 98% on R/A; js13 10:42 BP 156 / 78 (auto/); js13 10:42 Pulse 56 MON; Resp 16; Pulse Ox 100% on R/A; js13 10:57 BP 144 / 75 (auto/); js13 10:57 Pulse 60 MON; Resp 16; Temp 98.5(O); Pulse Ox 100% on R/A; js13 11:27 Pulse 58 MON; Resp 16; Temp 98.5(O); Pulse Ox 100% on R/A; Pain 0/10; js13 11:27 BP 146 / 82 (auto/); js13 05:11 Body Mass Index 29.53 (90.72 kg, 175.26 cm) ko2 MDM: 05:24 [facility] Payment Agreement was scanned into Button and attached to record. [facility] 06:39 Financial registration complete. pm4 07:09 IV Saline Lock ordered. cs11 07:09 NS 0.9% 500 ml IV at bolus once ordered. cs11 07:09 Haloperidol 5 mg IVP once ordered. cs11 07:09 diphenhydrAMINE 25 mg IVP once ordered. cs11 07:10 CBC with Diff Ordered. EDMS 07:10 MED Profile Ordered. EDMS 07:10 Liver Profile Ordered. EDMS 07:10 Amylase Ordered. EDMS 07:10 Lipase Ordered. EDMS 07:10 Urinalysis Ordered. EDMS 07:10 Urine Culture Ordered. EDMS 07:10 CT Chest Angio R/O PE Ordered. EDMS 07:10 CT ABD & PELVIS: IV Contrast Only Ordered. EDMS 07:17 Lactic Acid (Hicks tube on ice) Ordered. EDMS 08:13 CBC with Diff Reviewed. ml 08:42 MED Profile Reviewed. ml 08:42 Liver Profile Reviewed. ml 08:42 Amylase Reviewed. ml 08:42 Urinalysis Reviewed. ml 08:42 Lactic Acid (Hicks tube on ice) Reviewed. ml 08:42 Lipase Reviewed. ml 08:43 NS 0.9% 1000 ml IV at 150 mL/hr continuous ordered. ml 10:18 Piperacillin-Tazobactam 3.375 grams IVPB once over 30 mins; dilute in 50mL of NS or D5W ml ordered. 10:19 -Blood Culture (Adults Only), peripheral from different site, or from device/port/PICC ml etc. if present ordered. 10:20 -Blood Culture Ordered. EDMS 10:37 CT Chest Angio R/O PE Reviewed. ml 10:37 CT ABD & PELVIS: IV Contrast Only Reviewed. ml 10:42 -Blood Culture (Adults Only), peripheral from different site, or from device/port/PICC js13 etc. if present complete. 11:24 NS 0.9% 1000 ml IV at 100 mL/hr continuous ordered. js13 14:12 T-Sheet-- Draft Copy was scanned into Button and attached to record. gb 14:12 Radiology Report was scanned into Button and attached to record. gb Administered Medications: 07:52 Drug: NS 0.9% 500 ml [sodium chloride 0.9 % intravenous solution] Route: IV; Rate: js13 bolus; Site: left antecubital; 09:14 Follow up: IV Status: Completed infusion; IV Intake: 500ml js13 07:52 Drug: Haloperidol 5 mg [haloperidol lactate 5 mg/mL injection solution (1 mL)] Route: js13 IVP; Site: left antecubital; 07:52 Drug: diphenhydrAMINE 25 mg [diphenhydramine 50 mg/mL injection solution (0.5 mL)] js13 Route: IVP; Site: left antecubital; 08:45 Drug: NS 0.9% 1000 ml [sodium chloride 0.9 % intravenous solution] Route: IV; Rate: 150 js13 mL/hr; Site: left antecubital; 11:24 Follow up: IV Status: Infusion discontinued; IV Intake: 450ml js13 10:35 Drug: Piperacillin-Tazobactam 3.375 grams [piperacillin-tazobactam 3.375 gram js13 intravenous solution] Route: IVPB; Infused Over: 30 mins; Site: left antecubital; 11:24 Follow up: IV Status: Completed infusion; IV Intake: 50ml js13 11:20 Drug: NS 0.9% 1000 ml [sodium chloride 0.9 % intravenous solution] Route: IV; Rate: 100 js13 mL/hr; Site: left antecubital; Critical Care Time: 21:04 Critical care time: Bedside Care: 90 minutes, Consultation: 20 minutes. Total time: 110 ml minutes Signatures: Dispatcher [facility] EDNC Kendrick Zhou MD MD ml Barnhardt, Gloria, Reg Jennifer Castro RN RN js13 Angel Farmer, DO cs11 Teena Manzanares,RN RN ko2 Sonia Walker [facility] Dawn GriffithRN RN jp6 Edil Qiu, Reg Reg pm4 The chart was reviewed and I authenticate all verbal orders and agree with the evaluation and treatment provided.Attachments: 05:24 [facility] Payment Agreement [facility] 14:12 T-Sheet-- Draft Copy gb Chart Complete MTDD
--- NOTE | 2016-03-17 12:30 | EDDOCDS ---
Physician Documentation [facility] Name: Bnejamin Lake Age: 70 yrs Sex: Male : 1945 Arrival Date: 03/15/2016 Time: 04:53 Bed 14 Private MD: Disposition: 03/15 21:04 Critical Care:. ml Disposition: 03/15/16 10:42 Transfer ordered to [facility]. Diagnosis are Cholelithiasis - choledocholithiasis wiht abnormal liver function tests; s/p robotic lap prostatectomy with subcutaneous emphysema in perineum , Abdominal and pelvic pain, Hiccough - intractable. - Reason for transfer: Higher level of care. - Accepting physician is plascencia. - Condition is Critical. - Problem is new. - Symptoms are unchanged. Historical: - Allergies: No known drug Allergies; - Home Meds: 1. Lipitor 20 mg Oral tab 2. [place] 5-325 mg Oral tab 3. aspirin 81 mg Oral tab 4. cyclobenzaprine 10 mg Oral tab 5. Vitamin D Oral 2000 units 6. Flomax 0.4 mg Oral cp24 7. indomethacin 25 mg Oral cap 8. Calcium + Vitamin D 600 mg calcium- 200 unit Oral tab 9. Avapro 150 mg Oral tab 10. atenolol 50 mg Oral tab 11. Klor-Con 10 10 mEq Oral TbER 12. chlorthalidone 25 mg Oral tab 13. Cardizem 120 mg Oral tab 14. 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 No barriers to communication noted, The patient speaks fluent Armenian, Speaks appropriately for age. - Family history: Not pertinent. - : The pt / caregiver states he / she is not on anticoagulants. Home medication list is obtained from the patient. - Exposure Risk Screening:: None identified. Vital Signs: 05:11 BP 126 / 66; Pulse 60; Resp 20; Temp 98.1; Pulse Ox 97% ; Weight 90.72 kg / 200 lbs; ko2 Height 5 ft. 9 in. (175.26 cm); Pain 8/10; 05:27 BP 140 / 63 (auto/); jp6 05:28 Pulse 54 MON; Pulse Ox 97% ; jp6 05:42 BP 138 / 66 (auto/); jp6 05:43 Pulse 54 MON; Pulse Ox 98% ; jp6 05:57 BP 130 / 74 (auto/); jp6 05:58 Pulse 56 MON; Pulse Ox 99% ; jp6 06:12 BP 133 / 63 (auto/); js13 06:12 Pulse 58 MON; Pulse Ox 99% ; js13 06:27 BP 135 / 65 (auto/); js13 06:27 Pulse 56 MON; Pulse Ox 97% ; js13 06:42 BP 131 / 70 (auto/); js13 06:42 Pulse 62 MON; Pulse Ox 98% ; js13 06:57 BP 131 / 70 (auto/); js13 06:57 Pulse 62 MON; Resp 16; Pulse Ox 99% on R/A; js13 07:12 BP 130 / 70 (auto/); js13 07:12 Pulse 62 MON; Resp 16; Pulse Ox 97% on R/A; js13 07:27 BP 134 / 73 (auto/); js13 07:27 Pulse 62 MON; Resp 16; Pulse Ox 99% on R/A; js13 07:42 BP 114 / 65 (auto/); js13 07:42 Pulse 52 MON; Resp 16; Pulse Ox 98% on R/A; js13 07:57 BP 147 / 77 (auto/); js13 07:57 Pulse 66 MON; Resp 16; Pulse Ox 98% on R/A; js13 09:12 BP 139 / 78 (auto/); js13 09:12 Pulse 66 MON; Resp 16; Pulse Ox 99% on R/A; js13 09:27 BP 142 / 74 (auto/); js13 09:27 Pulse 60 MON; Resp 16; Pulse Ox 99% on R/A; js13 09:42 BP 169 / 84 (auto/); js13 09:42 Pulse 60 MON; Resp 16; Pulse Ox 99% on R/A; js13 09:57 BP 155 / 82 (auto/); js13 09:57 Pulse 64 MON; Resp 16; Pulse Ox 98% on R/A; js13 10:12 BP 141 / 75 (auto/); js13 10:12 Pulse 60 MON; Resp 16; Pulse Ox 98% on R/A; js13 10:42 BP 156 / 78 (auto/); js13 10:42 Pulse 56 MON; Resp 16; Pulse Ox 100% on R/A; js13 10:57 BP 144 / 75 (auto/); js13 10:57 Pulse 60 MON; Resp 16; Temp 98.5(O); Pulse Ox 100% on R/A; js13 11:27 Pulse 58 MON; Resp 16; Temp 98.5(O); Pulse Ox 100% on R/A; Pain 0/10; js13 11:27 BP 146 / 82 (auto/); js13 05:11 Body Mass Index 29.53 (90.72 kg, 175.26 cm) ko2 MDM: 05:24 [facility] Payment Agreement was scanned into [employer] and attached to record. [facility] 06:39 Financial registration complete. pm4 07:09 IV Saline Lock ordered. cs11 07:09 NS 0.9% 500 ml IV at bolus once ordered. cs11 07:09 Haloperidol 5 mg IVP once ordered. cs11 07:09 diphenhydrAMINE 25 mg IVP once ordered. cs11 07:10 CBC with Diff Ordered. EDMS 07:10 MED Profile Ordered. EDMS 07:10 Liver Profile Ordered. EDMS 07:10 Amylase Ordered. EDMS 07:10 Lipase Ordered. EDMS 07:10 Urinalysis Ordered. EDMS 07:10 Urine Culture Ordered. EDMS 07:10 CT Chest Angio R/O PE Ordered. EDMS 07:10 CT ABD & PELVIS: IV Contrast Only Ordered. EDMS 07:17 Lactic Acid (Hicks tube on ice) Ordered. EDMS 08:13 CBC with Diff Reviewed. ml 08:42 MED Profile Reviewed. ml 08:42 Liver Profile Reviewed. ml 08:42 Amylase Reviewed. ml 08:42 Urinalysis Reviewed. ml 08:42 Lactic Acid (Hicks tube on ice) Reviewed. ml 08:42 Lipase Reviewed. ml 08:43 NS 0.9% 1000 ml IV at 150 mL/hr continuous ordered. ml 10:18 Piperacillin-Tazobactam 3.375 grams IVPB once over 30 mins; dilute in 50mL of NS or D5W ml ordered. 10:19 -Blood Culture (Adults Only), peripheral from different site, or from device/port/PICC ml etc. if present ordered. 10:20 -Blood Culture Ordered. EDMS 10:37 CT Chest Angio R/O PE Reviewed. ml 10:37 CT ABD & PELVIS: IV Contrast Only Reviewed. ml 10:42 -Blood Culture (Adults Only), peripheral from different site, or from device/port/PICC js13 etc. if present complete. 11:24 NS 0.9% 1000 ml IV at 100 mL/hr continuous ordered. js13 14:12 T-Sheet-- Draft Copy was scanned into [employer] and attached to record. gb 14:12 Radiology Report was scanned into [employer] and attached to record. gb Administered Medications: 07:52 Drug: NS 0.9% 500 ml [sodium chloride 0.9 % intravenous solution] Route: IV; Rate: js13 bolus; Site: left antecubital; 09:14 Follow up: IV Status: Completed infusion; IV Intake: 500ml js13 07:52 Drug: Haloperidol 5 mg [haloperidol lactate 5 mg/mL injection solution (1 mL)] Route: js13 IVP; Site: left antecubital; 07:52 Drug: diphenhydrAMINE 25 mg [diphenhydramine 50 mg/mL injection solution (0.5 mL)] js13 Route: IVP; Site: left antecubital; 08:45 Drug: NS 0.9% 1000 ml [sodium chloride 0.9 % intravenous solution] Route: IV; Rate: 150 js13 mL/hr; Site: left antecubital; 11:24 Follow up: IV Status: Infusion discontinued; IV Intake: 450ml js13 10:35 Drug: Piperacillin-Tazobactam 3.375 grams [piperacillin-tazobactam 3.375 gram js13 intravenous solution] Route: IVPB; Infused Over: 30 mins; Site: left antecubital; 11:24 Follow up: IV Status: Completed infusion; IV Intake: 50ml js13 11:20 Drug: NS 0.9% 1000 ml [sodium chloride 0.9 % intravenous solution] Route: IV; Rate: 100 js13 mL/hr; Site: left antecubital; Critical Care Time: 21:04 Critical care time: Bedside Care: 90 minutes, Consultation: 20 minutes. Total time: 110 ml minutes Signatures: Dispatcher [facility] EDOH Kendrick Zhou MD MD ml Barnhardt, Gloria, Reg Jennifer Castro RN RN js13 Angel Farmer, DO cs11 Teena Manzanares,RN RN ko2 Sonia Walker [facility] Dawn GriffithRN RN jp6 Edil Qiu, Reg Reg pm4 The chart was reviewed and I authenticate all verbal orders and agree with the evaluation and treatment provided.Attachments: 05:24 [facility] Payment Agreement [facility] 14:12 T-Sheet-- Draft Copy gb Chart Complete MTDD
== END 2016-03-15 11:29 | disposition short-term general hospital (02) ==
LOC: M ED 04:53
DX: R06.6 Hiccough (principal); K80.20 Calculus of gallbladder without cholecystitis without obstruction; Z98.890 Other specified postprocedural states; I10 Essential (primary) hypertension; E78.00 Pure hypercholesterolemia, unspecified; N40.0 Benign prostatic hyperplasia without lower urinary tract symptoms; I67.1 Cerebral aneurysm, nonruptured; Z79.899 Other long term (current) drug therapy; Z79.82 Long term (current) use of aspirin
CPT/HCPCS: 36415; 71275; 74177; 80048; 80076; 81001; 82150; 83605; 83690; 85025; 87040; 87086; 96361; 96365; 96375; 99285; J1200; J1630; J2543; Q9967

== ENCOUNTER → 2016-04-26 | Outpatient (REF) | payer MEDICARE | LOC: M LABDRAWP 15:27 | PROVIDERS: ATTEND Urology | DX: C61 Malignant neoplasm of prostate (principal) ==

== ENCOUNTER → 2016-05-07 | Outpatient (REF) | payer MEDICARE ==
[2016-05-07 11:50] LABS: BASO % 0.5 % (0.0-1.0); EOS # 0.2 K/mm3 (0.0-0.50); EOS % 4.6 % (0.0-3.0); LARGE UNSTAINED CELL # 0.2 K/mm3 (0.0-0.4); LARGE UNSTAINED CELL % 3.6 % (0.0-4.0); LYMPH % 18.9 % (24.0-44.0); MEAN CORPUSCULAR HEMOGLOBIN 30.5 pg (27.0-33.0); MEAN CORPUSCULAR HGB CONC 34.3 g/dl (32.0-36.5); MONO # 0.5 K/mm3 (0.0-0.8); MONO % 8.2 % (0.0-5.0); NEUTROPHILS # 3.5 K/mm3 (1.8-7.7); NEUTROPHILS % 64.2 % (36.0-66.0); PLATELET COUNT, AUTOMATED 164 k/mm3 (150-450); RED CELL DISTRIBUTION WIDTH 13.5 % (11.5-14.5); WHITE BLOOD COUNT 5.5 K/mm3 (4.0-10.0)
[2016-05-07 12:57] LABS: ALBUMIN 3.5 GM/DL (3.2-5.2); ALBUMIN/GLOBULIN RATIO 1.35 (1.00-1.93); ALKALINE PHOSPHATASE 96 U/L (45-117); ALT/SGPT 28 U/L (12-78); ANION GAP 11 MEQ/L (8-16); AST/SGOT 19 U/L (15-37); BILIRUBIN,TOTAL 1.3 MG/DL (0.2-1.0); BLOOD UREA NITROGEN 17 MG/DL (7-18); CARBON DIOXIDE LEVEL 28 MEQ/L (21-32); CHLORIDE LEVEL 105 MEQ/L (98-107); CHOLESTEROL LEVEL 169 MG/DL (<200); CREATININE FOR GFR 0.78 MG/DL (0.70-1.30); GLOMERULAR FILTRATION RATE > 60.0 (>42); GLUCOSE, FASTING 95 MG/DL (83-110); POTASSIUM SERUM 3.7 MEQ/L (3.5-5.1); SODIUM LEVEL 144 MEQ/L (136-145); TOTAL PROTEIN 6.1 GM/DL (6.4-8.2); TRIGLYCERIDES LEVEL 218 MG/DL (<150)
== END ==
LOC: M SFHCPLAZ 09:55
PROVIDERS: ATTEND Family Medicine
DX: N18.2 Chronic kidney disease, stage 2 (mild) (principal); E78.5 Hyperlipidemia, unspecified; E66.3 Overweight; I12.9 Hypertensive chronic kidney disease with stage 1 through stage 4 chronic kidney disease, or unspecified chronic kidney disease

== ENCOUNTER → 2016-08-05 | Outpatient (REF) | payer MEDICARE | LOC: M LABDRAWP 13:00 | PROVIDERS: ATTEND Urology | DX: C61 Malignant neoplasm of prostate (principal) ==

== ENCOUNTER → 2016-10-13 | Outpatient (REF) | payer MEDICARE ==
[2016-10-13 11:44] LABS: MEAN CORPUSCULAR HEMOGLOBIN 33.9 pg (27.0-33.0); MEAN CORPUSCULAR VOLUME 91.2 fl (80.0-96.0); WHITE BLOOD COUNT 5.3 K/mm3 (4.0-10.0)
[2016-10-13 11:49] LABS: MEAN CORPUSCULAR HGB CONC 37.1 g/dl (32.0-36.5)
[2016-10-13 12:33] LABS: ALBUMIN 3.6 GM/DL (3.2-5.2); ALBUMIN/GLOBULIN RATIO 1.29 (1.00-1.93); ALKALINE PHOSPHATASE 82 U/L (45-117); ALT/SGPT 20 U/L (12-78); ANION GAP 9 MEQ/L (8-16); AST/SGOT 18 U/L (15-37); BILIRUBIN,TOTAL 1.9 MG/DL (0.2-1.0); BLOOD UREA NITROGEN 13 MG/DL (7-18); CALCIUM LEVEL 8.3 MG/DL (8.8-10.2); CARBON DIOXIDE LEVEL 29 MEQ/L (21-32); CHLORIDE LEVEL 106 MEQ/L (98-107); CREATININE FOR GFR 0.71 MG/DL (0.70-1.30); GLOMERULAR FILTRATION RATE > 60.0 (>42); GLUCOSE, FASTING 90 MG/DL (83-110); POTASSIUM SERUM 3.4 MEQ/L (3.5-5.1); SODIUM LEVEL 144 MEQ/L (136-145); TOTAL PROTEIN 6.4 GM/DL (6.4-8.2)
[2016-10-13 12:51] LABS: ERYTHROCYTE SEDIMENTATION RATE 6 mm/hr (0-20)
[2016-10-13 13:24] LABS: BASOPHILS 1 % (0-4)
== END ==
LOC: M SFHCPLAZ 10:03
PROVIDERS: ATTEND Family Medicine
DX: K80.20 Calculus of gallbladder without cholecystitis without obstruction (principal); I10 Essential (primary) hypertension; E55.9 Vitamin D deficiency, unspecified

== ENCOUNTER → 2016-10-21 | Outpatient (CLI) | payer MEDICARE ==
--- NOTE | 2016-10-21 13:40 | REP ---
Chest two views HISTORY: Cervical lymphadenitis Comparison: 02/04/2009 The lungs are clear. The heart is normal in size. The pulmonary vasculature is normal in appearance. Degenerative change is present in the thoracic spine. IMPRESSION: No acute disease. Signed by Lucas Dillard MD 10/21/2016 01:32 P
== END ==
LOC: M ADAMS 13:20
PROVIDERS: ATTEND Family Medicine
DX: I88.9 Nonspecific lymphadenitis, unspecified (principal)

== ENCOUNTER → 2016-11-02 | Outpatient (CLI) | payer MEDICARE ==
--- NOTE | 2016-11-02 15:30 | REP ---
CT NECK SOFT TISSUE WITHOUT CONTRAST: 11/02/2016. CLINICAL HISTORY: Cervical lymphadenitis. COMPARISON: No prior studies. FINDINGS: Noncontrast exam with coronal and sagittal reconstructions through the neck were reviewed. The bone windows show the skull base, mastoids and visualized maxilla and mandible grossly intact, those portions of sinuses included are normal. The ring of C1 intact. The spinous processes, lamina, the pedicles and transverse processes were unremarkable. Portions of the first three ribs included were also intact. The lung apices appeared clear. There is diffuse cervical spondylosis with bridging syndesmophytes and osteophytes anteriorly from C2-3 through C7-T1 and T1-2. There is no acute compression deformity. The disc space height slightly narrowed at C5-6 and C6-7 compared to levels above. The dens and lateral masses along with the anterior arch show normal relationship on all projections. I see no destructive lesions. The central canal shows mild stenosis at the C5-6 and C6-7 levels due to posterior osteophytic ridging. There is foraminal encroachment, right greater than left at C5-6, bilaterally at C4-5, on the left at C2-3 and C3-4. Soft tissues anterior posterior strap muscles of the neck were unremarkable. The parotid glands are fatty and symmetric without mass. The submandibular glands and thyroid lobes are not enlarged and appear symmetric. The thyroid lobes do show a few tiny low-density areas on the left suggesting small cysts. No thyromegaly. The anterior and posterior cervical chains show no pathologic sized lymphadenopathy. Tongue base intact. The adenoid pad was normal. The nasopharynx, hypopharynx, oropharynx, larynx, epiglottis and the subglottic airway were all grossly unremarkable. IMPRESSION: 1. There is no pathologic sized cervical lymphadenopathy or neck mass. Fatty change is noted in the bilateral parotid glands greater than submandibular glands. No mass in the tongue base, in the pharyngeal herrera or prevertebral soft tissue swelling. 2. Airway intact. 3. No anterior or posterior cervical chain adenopathy. Bones show diffuse marginal osteophytes and bridging syndesmophytes throughout without acute compression deformity. There is foraminal encroachment and spinal stenosis at the levels described above. Signed by Shon Zavala MD 11/02/2016 04:17 P
== END ==
LOC: M RAD 12:52
PROVIDERS: ATTEND Family Medicine
DX: I88.9 Nonspecific lymphadenitis, unspecified (principal)

== ENCOUNTER → 2017-02-02 | Outpatient (REF) | payer MEDICARE ==
[2017-02-02 10:54] LABS: BASO # 0.1 10^3/uL (0.0-0.2); BASO % 0.9 % (0.0-1.0); EOS # 0.2 10^3/uL (0.0-0.50); EOS % 3.3 % (0.0-3.0); IMMATURE GRANULOCYTE % 0.3 % (0-0); LYMPH # 1.2 10^3/uL (1.5-4.5); LYMPH % 20.3 % (24.0-44.0); MEAN CORPUSCULAR HEMOGLOBIN 32.2 pg (27.0-33.0); MEAN CORPUSCULAR HGB CONC 35.5 g/dl (32.0-36.5); MEAN CORPUSCULAR VOLUME 90.7 fl (80.0-96.0); MONO # 0.8 10^3/uL (0.0-0.8); MONO % 13.2 % (0.0-5.0); NEUTROPHILS # 3.6 10^3/uL (1.8-7.7); PLATELET COUNT, AUTOMATED 189 10^3/uL (150-450); RED CELL DISTRIBUTION WIDTH 12.5 % (11.5-14.5); WHITE BLOOD COUNT 5.8 10^3/uL (4.0-10.0)
[2017-02-02 11:29] LABS: ALBUMIN 3.7 GM/DL (3.2-5.2); ALBUMIN/GLOBULIN RATIO 1.32 (1.00-1.93); ALKALINE PHOSPHATASE 90 U/L (45-117); ALT/SGPT 24 U/L (12-78); ANION GAP 9 MEQ/L (8-16); AST/SGOT 18 U/L (7-37); BILIRUBIN,TOTAL 1.2 MG/DL (0.2-1.0); BLOOD UREA NITROGEN 12 MG/DL (7-18); CALCIUM LEVEL 9.2 MG/DL (8.8-10.2); CARBON DIOXIDE LEVEL 29 MEQ/L (21-32); CHLORIDE LEVEL 105 MEQ/L (98-107); CHOLESTEROL LEVEL 180 MG/DL (<200); CREATININE FOR GFR 0.85 MG/DL (0.70-1.30); FREE T4 0.94 NG/DL (0.76-1.46); GLOMERULAR FILTRATION RATE > 60.0 (>42); GLUCOSE, FASTING 95 MG/DL (83-110); POTASSIUM SERUM 3.5 MEQ/L (3.5-5.1); SODIUM LEVEL 143 MEQ/L (136-145); TOTAL PROTEIN 6.5 GM/DL (6.4-8.2); TRIGLYCERIDES LEVEL 140 MG/DL (<150)
== END ==
LOC: M SFHCPLAZ 08:59
PROVIDERS: ATTEND Family Medicine
DX: E78.5 Hyperlipidemia, unspecified (principal)

== ENCOUNTER → 2017-02-24 | Outpatient (CLI) | payer MEDICARE ==
[2017-02-24 15:45] LABS: BLOOD UREA NITROGEN 14 MG/DL (7-18)
[2017-02-24 15:45] LABS: CREATININE FOR GFR 0.87 MG/DL (0.70-1.30); GLOMERULAR FILTRATION RATE > 60.0 (>42)
== END ==
LOC: M LAB 14:56
DX: K80.50 Calculus of bile duct without cholangitis or cholecystitis without obstruction (principal)
CPT/HCPCS: 82565

== ENCOUNTER → 2017-03-01 | Outpatient (CLI) | payer MEDICARE ==
[2017-03-01 15:45] LABS: PROSTATIC SPECIFIC AG MONITOR 0.07 NG/ML (< 4.0)
== END ==
LOC: M LAB 15:04
DX: C61 Malignant neoplasm of prostate (principal)
CPT/HCPCS: 84153

== ENCOUNTER → 2017-03-02 | Outpatient (CLI) | payer MEDICARE | LOC: M RAD 10:25 | DX: I67.1 Cerebral aneurysm, nonruptured (principal) | CPT/HCPCS: 70544 ==

== ENCOUNTER → 2017-03-15 | Outpatient (REF) | payer MEDICARE ==
[2017-03-15 15:30] LABS: BASO % 0.5 % (0.0-1.0); EOS # 0.1 10^3/uL (0.0-0.50); EOS % 1.6 % (0.0-3.0); HEMATOCRIT 45.6 % (42.0-52.0); HEMOGLOBIN 16.3 g/dl (14.0-18.0); IMMATURE GRANULOCYTE % 0.3 % (0-0); LYMPH # 1.1 10^3/uL (1.5-4.5); LYMPH % 14.6 % (24.0-44.0); MEAN CORPUSCULAR HEMOGLOBIN 32.2 pg (27.0-33.0); MEAN CORPUSCULAR HGB CONC 35.7 g/dl (32.0-36.5); MEAN CORPUSCULAR VOLUME 90.1 fl (80.0-96.0); MONO # 0.8 10^3/uL (0.0-0.8); NEUTROPHILS # 5.4 10^3/uL (1.8-7.7); PLATELET COUNT, AUTOMATED 194 10^3/uL (150-450); RED BLOOD COUNT 5.06 10^6/uL (4.30-6.10); RED CELL DISTRIBUTION WIDTH 12.6 % (11.5-14.5); WHITE BLOOD COUNT 7.5 10^3/uL (4.0-10.0)
[2017-03-15 15:53] LABS: ALBUMIN 4.2 GM/DL (3.2-5.2); ALKALINE PHOSPHATASE 101 U/L (45-117); ALT/SGPT 20 U/L (12-78); ANION GAP 8 MEQ/L (8-16); AST/SGOT 20 U/L (7-37); BILIRUBIN,TOTAL 2.1 MG/DL (0.2-1.0); BLOOD UREA NITROGEN 16 MG/DL (7-18); CALCIUM LEVEL 9.3 MG/DL (8.8-10.2); CARBON DIOXIDE LEVEL 30 MEQ/L (21-32); CHLORIDE LEVEL 104 MEQ/L (98-107); CREATININE FOR GFR 0.78 MG/DL (0.70-1.30); GLOMERULAR FILTRATION RATE > 60.0 (>42); GLUCOSE, FASTING 106 MG/DL (70-100); MAGNESIUM LEVEL 2.2 MG/DL (1.8-2.4); POTASSIUM SERUM 3.5 MEQ/L (3.5-5.1); SODIUM LEVEL 142 MEQ/L (136-145)
== END ==
LOC: M SFHCPLAZ 14:22
DX: I10 Essential (primary) hypertension (principal)
CPT/HCPCS: 83735

== ENCOUNTER → 2017-07-14 | Outpatient (REF) | payer MEDICARE ==
[2017-07-14 13:22] LABS: BASO # 0.1 10^3/uL (0.0-0.2); BASO % 0.9 % (0.0-1.0); EOS # 0.2 10^3/uL (0.0-0.50); EOS % 2.6 % (0.0-3.0); HEMOGLOBIN 15.4 g/dl (13.5-17.5); IMMATURE GRANULOCYTE % 0.3 % (0-3.0); LYMPH % 17.2 % (24.0-44.0); MEAN CORPUSCULAR HEMOGLOBIN 32.4 pg (27.0-33.0); MEAN CORPUSCULAR HGB CONC 35.8 g/dl (32.0-36.5); MEAN CORPUSCULAR VOLUME 90.5 fl (80.0-96.0); MONO # 0.6 10^3/uL (0.0-0.8); MONO % 10.8 % (0.0-5.0); NEUTROPHILS % 68.2 % (36.0-66.0); PLATELET COUNT, AUTOMATED 178 10^3/uL (150-450); RED BLOOD COUNT 4.75 10^6/uL (4.30-6.10); RED CELL DISTRIBUTION WIDTH 12.9 % (11.5-14.5); WHITE BLOOD COUNT 5.8 10^3/uL (4.0-10.0)
[2017-07-14 13:55] LABS: ALBUMIN 3.6 GM/DL (3.2-5.2); ALBUMIN/GLOBULIN RATIO 1.24 (1.00-1.93); ALKALINE PHOSPHATASE 100 U/L (45-117); ALT/SGPT 23 U/L (12-78); ANION GAP 8 MEQ/L (8-16); AST/SGOT 17 U/L (7-37); BILIRUBIN,TOTAL 1.5 MG/DL (0.2-1.0); BLOOD UREA NITROGEN 16 MG/DL (7-18); CALCIUM LEVEL 8.6 MG/DL (8.8-10.2); CARBON DIOXIDE LEVEL 28 MEQ/L (21-32); CHLORIDE LEVEL 105 MEQ/L (98-107); FERRITIN 158 NG/ML (26-388); GLOMERULAR FILTRATION RATE > 60.0 (>42); GLUCOSE, FASTING 106 MG/DL (70-100); IRON (FE) 106 UG/DL (65-175); PERCENT SATURATION 33.9 % (19.7-50.0); POTASSIUM SERUM 3.3 MEQ/L (3.5-5.1); SODIUM LEVEL 141 MEQ/L (136-145); TOTAL IRON BINDING CAPACITY 313 UG/DL (250-450); TOTAL PROTEIN 6.5 GM/DL (6.4-8.2)
[2017-07-14 13:57] LABS: PTH INTACT 53.6 PG/ML (18.5-88.0); TOTAL 25(OH) VITAMIN D 32.9 NG/ML (30.0-100.0)
== END ==
LOC: M SFHCPLAZ 09:24
DX: E55.9 Vitamin D deficiency, unspecified (principal); D50.9 Iron deficiency anemia, unspecified
CPT/HCPCS: 83550

== ENCOUNTER → 2017-09-21 | Outpatient (REF) | payer MEDICARE ==
[2017-09-21 19:45] LABS: PROSTATIC SPECIFIC AG MONITOR 0.12 NG/ML (< 4.0)
== END ==
LOC: M LABDRWAD 19:17
DX: R97.20 Elevated prostate specific antigen [PSA] (principal)
CPT/HCPCS: 84153

== ENCOUNTER → 2017-11-30 | Outpatient (REF) | payer MEDICARE ==
[2017-11-30 20:22] LABS: BASO # 0.1 10^3/uL (0.0-0.2); EOS # 0.2 10^3/uL (0.0-0.50); EOS % 3.9 % (0.0-3.0); HEMATOCRIT 41.1 % (42.0-52.0); HEMOGLOBIN 14.7 g/dl (13.5-17.5); IMMATURE GRANULOCYTE % 0.2 % (0-3.0); LYMPH # 0.8 10^3/uL (1.5-4.5); LYMPH % 13.6 % (24.0-44.0); MEAN CORPUSCULAR HEMOGLOBIN 32.5 pg (27.0-33.0); MEAN CORPUSCULAR HGB CONC 35.8 g/dl (32.0-36.5); MEAN CORPUSCULAR VOLUME 90.9 fl (80.0-96.0); MONO # 0.7 10^3/uL (0.0-0.8); MONO % 11.6 % (0.0-5.0); NEUTROPHILS # 4.2 10^3/uL (1.8-7.7); NEUTROPHILS % 69.7 % (36.0-66.0); PLATELET COUNT, AUTOMATED 168 10^3/uL (150-450); RED BLOOD COUNT 4.52 10^6/uL (4.30-6.10); RETIC HEMOGLOBIN EQUIVALENT 36.6 pg (24-36); RETICULOCYTE # 168.1 10^9/L (17-77); RETICULOCYTE % 3.7 % (0.5-1.5)
[2017-11-30 20:34] LABS: ESTIMATED AVERAGE GLUCOSE 105 MG/DL (60-110); HEMOGLOBIN A1c 5.3 %
[2017-11-30 20:38] LABS: ALBUMIN 3.7 GM/DL (3.2-5.2); ALBUMIN/GLOBULIN RATIO 1.42 (1.00-1.93); ALKALINE PHOSPHATASE 101 U/L (45-117); ALT/SGPT 20 U/L (12-78); ANION GAP 8 MEQ/L (8-16); AST/SGOT 17 U/L (7-37); BILIRUBIN,TOTAL 1.9 MG/DL (0.2-1.0); BLOOD UREA NITROGEN 9 MG/DL (7-18); CALCIUM LEVEL 9.1 MG/DL (8.8-10.2); CARBON DIOXIDE LEVEL 29 MEQ/L (21-32); CHLORIDE LEVEL 106 MEQ/L (98-107); CREATININE FOR GFR 0.76 MG/DL (0.70-1.30); FREE T4 0.95 NG/DL (0.76-1.46); GLOMERULAR FILTRATION RATE > 60.0 (>42); GLUCOSE, FASTING 102 MG/DL (70-100); MAGNESIUM LEVEL 1.8 MG/DL (1.8-2.4); POTASSIUM SERUM 3.5 MEQ/L (3.5-5.1); SODIUM LEVEL 143 MEQ/L (136-145); TOTAL PROTEIN 6.3 GM/DL (6.4-8.2)
== END ==
LOC: M SFHCADAM 11:30
DX: I10 Essential (primary) hypertension (principal); E78.5 Hyperlipidemia, unspecified
CPT/HCPCS: 83735

== ENCOUNTER → 2018-01-19 | Outpatient (REF) | payer MEDICARE ==
[2018-01-19 20:07] LABS: PROSTATIC SPECIFIC AG MONITOR 0.1 NG/ML (< 4.0)
== END ==
LOC: M LABDRWAD 19:21
DX: C61 Malignant neoplasm of prostate (principal)
CPT/HCPCS: 84153

== ENCOUNTER → 2018-06-15 | Outpatient (REF) | payer MEDICARE ==
[2018-06-15 13:30] LABS: BASO # 0.1 10^3/uL (0.0-0.2); BASO % 0.7 % (0.0-1.0); EOS # 0.2 10^3/uL (0.0-0.50); EOS % 2.9 % (0.0-3.0); HEMATOCRIT 42.2 % (42.0-52.0); HEMOGLOBIN 14.7 g/dl (13.5-17.5); LYMPH # 0.8 10^3/uL (1.5-4.5); LYMPH % 11.4 % (24.0-44.0); MEAN CORPUSCULAR HEMOGLOBIN 31.8 pg (27.0-33.0); MEAN CORPUSCULAR HGB CONC 34.8 g/dl (32.0-36.5); MEAN CORPUSCULAR VOLUME 91.3 fl (80.0-96.0); MONO # 1.1 10^3/uL (0.0-0.8); MONO % 15.6 % (0.0-5.0); NEUTROPHILS % 69.1 % (36.0-66.0); PLATELET COUNT, AUTOMATED 171 10^3/uL (150-450); RED BLOOD COUNT 4.62 10^6/uL (4.30-6.10); WHITE BLOOD COUNT 7.2 10^3/uL (4.0-10.0)
[2018-06-15 13:59] LABS: ALBUMIN 3.8 GM/DL (3.2-5.2); ALT/SGPT 21 U/L (12-78); BILIRUBIN,TOTAL 1.9 MG/DL (0.2-1.0); BLOOD UREA NITROGEN 13 MG/DL (7-18); CALCIUM LEVEL 9.2 MG/DL (8.8-10.2); CARBON DIOXIDE LEVEL 30 MEQ/L (21-32); CHLORIDE LEVEL 106 MEQ/L (98-107); CHOLESTEROL LEVEL 180 MG/DL (<200); CPK CREATINE PHOSPHOKINASE 90 U/L (39-308); CREATININE FOR GFR 0.82 MG/DL (0.70-1.30); GLOMERULAR FILTRATION RATE > 60.0 (>42); GLUCOSE, FASTING 113 MG/DL (70-100); HDL CHOLESTEROL 50 MG/DL (>40); LDL CHOLESTEROL 92.2 MG/DL (<100); NON-HDL-C 130 MG/DL; POTASSIUM SERUM 3.4 MEQ/L (3.5-5.1); SODIUM LEVEL 142 MEQ/L (136-145); TOTAL PROTEIN 6.3 GM/DL (6.4-8.2); TRIGLYCERIDES LEVEL 189 MG/DL (<150)
[2018-06-15 14:34] LABS: TOTAL 25(OH) VITAMIN D 33.6 NG/ML (30.0-100.0)
== END ==
LOC: M SFHCADAM 09:21
PROVIDERS: ATTEND Family Medicine
DX: I10 Essential (primary) hypertension (principal); E78.5 Hyperlipidemia, unspecified; E55.9 Vitamin D deficiency, unspecified

== ENCOUNTER → 2018-08-07 | Outpatient (REF) | payer MEDICARE ==
[2018-08-07 20:53] LABS: HEMOGLOBIN A1c 5.3 %
== END ==
LOC: M SFHCADAM 13:02
PROVIDERS: ATTEND Family Medicine
DX: E66.3 Overweight (principal)

== ENCOUNTER → 2018-08-09 | Outpatient (REF) | payer MEDICARE | LOC: M LABDRWAD 18:27 | PROVIDERS: ATTEND Urology | DX: C61 Malignant neoplasm of prostate (principal) ==

== ENCOUNTER → 2018-09-06 | Outpatient (REF) | payer MEDICARE ==
[2018-09-06 19:46] LABS: ALBUMIN 3.7 GM/DL (3.2-5.2); BLOOD UREA NITROGEN 12 MG/DL (7-18); CALCIUM LEVEL 9.3 MG/DL (8.8-10.2); CARBON DIOXIDE LEVEL 32 MEQ/L (21-32); CHLORIDE LEVEL 105 MEQ/L (98-107); GLOMERULAR FILTRATION RATE > 60.0 (>42); GLUCOSE, FASTING 96 MG/DL (70-100); PHOSPHORUS LEVEL 2.4 MG/DL (2.5-4.9); POTASSIUM SERUM 3.5 MEQ/L (3.5-5.1); SODIUM LEVEL 143 MEQ/L (136-145)
== END ==
LOC: M SFHCADAM 14:27
PROVIDERS: ATTEND Family Medicine
DX: N18.2 Chronic kidney disease, stage 2 (mild) (principal)

== ENCOUNTER → 2018-09-07 | Outpatient (CLI) | payer MEDICARE ==
[~2018-09-07] MED LIST: ISOVUE-370 76% 100ML VIAL (Q9967) As Ordered ONE
--- NOTE | 2018-09-07 12:24 | REP ---
CT NECK SOFT TISSUES WITH IV CONTRAST: HISTORY: Fullness in the neck. There is a history of prostate cancer. CT CONTRAST DOSE: 75 mL of intravenous Isovue 370. CT FINDINGS: Preliminary white metal caster images are unremarkable. There is advanced degenerative spondylosis change with bridging and rather thick prevertebral osteophyte formation throughout the cervical spine from C2 through T2. No sclerotic or lytic bony destructive lesion is appreciated. The parotid and submandibular glands are normal and symmetric. No vascular abnormality is seen. There is no evidence of suprahyoid or infrahyoid adenopathy. No cyst is observed. Thyroid lobes show no significant abnormality. There is a superior mediastinal lymph node visible between the left subclavian and left common carotid artery measuring 1.3 cm in short axis dimension x 2.3 cm in long axis dimension. This is incompletely imaged being at the bottom of the imaging field of view. However, it is visible on the November 02, 2016 prior study and it is unchanged. Study is otherwise unremarkable. IMPRESSION: No mass or adenopathy seen. Advanced degenerative spondylosis changes in the cervical spine with bridging thick prevertebral osteophyte formation throughout the cervical spine. The lung apices are clear. Electronically Signed by Timothy Jaramillo MD 09/07/2018 07:20 P
== END ==
LOC: M RAD 10:34
PROVIDERS: ATTEND Family Medicine
DX: M25.78 Osteophyte, vertebrae (principal); R22.1 Localized swelling, mass and lump, neck
CPT/HCPCS: 70491; Q9967

== ENCOUNTER → 2018-10-03 | Outpatient (REF) | payer MEDICARE ==
[2018-10-03 17:14] LABS: BLOOD UREA NITROGEN 15 MG/DL (7-18); CALCIUM LEVEL 9.7 MG/DL (8.8-10.2); CARBON DIOXIDE LEVEL 30 MEQ/L (21-32); CHLORIDE LEVEL 105 MEQ/L (98-107); CREATININE FOR GFR 0.98 MG/DL (0.70-1.30); GLOMERULAR FILTRATION RATE > 60.0 (>42); GLUCOSE, FASTING 151 MG/DL (70-100); POTASSIUM SERUM 3.5 MEQ/L (3.5-5.1); SODIUM LEVEL 141 MEQ/L (136-145)
== END ==
LOC: M LABDRWAD 16:13
PROVIDERS: ATTEND Urology
DX: C61 Malignant neoplasm of prostate (principal); R97.21 Rising PSA following treatment for malignant neoplasm of prostate

== ENCOUNTER → 2018-10-25 | Outpatient (REF) | payer MEDICARE ==
[~2018-10-25] MED LIST changes: +ASPI81TA33 PO; +ATOR1TAB21; +CARV12.5 PO; +CHLO125TA PO; +D200CAP2 PO; +DILT120T PO; +IRBE150T12 PO; -ISOVUE-370 76% 100ML VIAL (Q9967) As Ordered ONE; +MAGN500T2 PO; +OMEP-218 PO; +POTA1TAB23 PO; +URSO300C3 PO
== END ==
LOC: M LABDRWAD 19:33
PROVIDERS: ATTEND Urology
DX: C61 Malignant neoplasm of prostate (principal)

== ENCOUNTER → 2018-11-21 | Outpatient (CLI) | payer MEDICARE ==
--- NOTE | 2018-11-22 08:41 | RADONC ---
RADIATION ONCOLOGY CONSULTATION NOTE DATE: 11/21/2018 CHART NUMBER: [id number] DIAGNOSIS: Prostate cancer. STAGE: III C, pT3b, N0, M0, Clermont score 9 (4-5), grade group 5, PSA 4.7. ECOG PERFORMANCE STATUS: 0 CONSULTATION NOTE: Mr. Lake is a very pleasant, 73-year-old white male with the diagnosis of what appears to be a stage III C, pT3b, N0, M0 poorly differentiated Dora score 9 (4-5) adenocarcinoma of the prostate, grade group 5 with initial PSA of 4.7 who is presenting to us today status post robotic-assisted laparoscopic prostatectomy with bilateral lymph node dissection for a biochemical failure and now for postoperative radiation therapy in attempt to increase the likelihood of achieving local control. HISTORY OF PRESENT ILLNESS: The patient was in his usual state of health but was found to have a rising PSA level, which reached 4.7. On 03/09/2016, the patient underwent a robotic-assisted laparoscopic prostatectomy with bilateral lymph node dissection and bilateral nerve sparing with urethral suspension. Pathology revealed a poorly differentiated Clermont score 9 (4-5), grade group 5 adenocarcinoma of the prostate. The percentage of prostate involved by tumor was between 15-20%. The tumor was bilateral. Extracapsular extension was present. The margins were negative for tumor. Seminal vesical involvement was present. Perineural invasion was present and extensive. Lymph vascular invasion was not identified. Multiple bilateral lymph nodes were sampled and all were negative for metastatic disease. Since surgery, the patient has been followed closely and his PSA has been slowly rising. His PSA was 0.02 in April 2016 and July 2016. It was 0.07 in February 2017. It had reached 0.1 in February 2017 at [facility]. By May it reach 0.11. It was 0.12 in September of 2017. On 08/09/2018, it was 0.22 and by 10/25/2018 it had risen to 0.26. The patient is now presenting to us for discussion of external beam radiation therapy. Symptom gross, he still has some occasional stress urinary incontinence since surgery. PAST MEDICAL HISTORY: The patient's past medical history is positive for a brain aneurysm as well as GERD, Gilbert's syndrome, hypercholesterolemia, hypertension, appendectomy, and Lan's disease. ALLERGIES: The patient has NO KNOWN DRUG ALLERGIES. SOCIAL HISTORY: The patient does not smoke cigarettes. He drinks approximately 2-3 alcoholic beverages a day. FAMILY HISTORY: The patient's family history is positive for a father with prostate cancer. REVIEW OF SYSTEMS: The patient's review of systems is noncontributory. Denies nausea, vomiting, fevers, chills, night sweats, diplopia, headaches, anxiety or depression, anorexia, weight loss, visual disturbances, chest pain, urinary or bowel difficulties, bone pain, or neurological problems. PHYSICAL EXAMINATION: The patient is a well-developed, well-nourished male in no acute distress. HEENT exam is normocephalic, atraumatic. Extraocular movements are intact. There is no palpable cervical, supraclavicular, infraclavicular, axillary, or inguinal lymphadenopathy present. Lungs are clear to auscultation and percussion. Heart has a regular rate and rhythm. Abdomen is benign with no hepatosplenomegaly, masses, or tenderness. Rectal examination reveals a normal anal sphincter tone. His prostate bed is smooth with no evidence of nodularity or recurrent disease. Skeletal examination reveals no tenderness to pressure or percussion of the bony skeleton. Extremities reveal no clubbing, cyanosis, or edema. Neurologic exam is grossly intact, as is the remainder of the physical examination. ASSESSMENT: Mr. Lake is presenting to us today with what appears to be a biochemical failure following a robotic-assisted radical prostatectomy. Clearly the patient is a candidate for external beam radiation therapy and I have so informed. I have discussed with the patient in detail the potential benefits as well as possible acute and chronic sequelae of external beam radiation therapy. We have discussed logistics of treatment planning, simulation and subsequent fractionated daily radiation treatments. I have scheduled the patient for the next available simulation slot and radiation treatments will follow. Thank you for allowing us to participate in the care of this very pleasant gentleman. If I could be of any further assistance or provide you with any information, please feel free to contact me anytime. As always, warm regards. cc: MD Nilo Shahid MD
== END ==
LOC: M ONCR 13:56
PROVIDERS: ATTEND Radiology Radiation Oncology
DX: C61 Malignant neoplasm of prostate (principal); I10 Essential (primary) hypertension; K21.9 Gastro-esophageal reflux disease without esophagitis; M02.30 Reiter's disease, unspecified site; E78.00 Pure hypercholesterolemia, unspecified; E80.4 Gilbert syndrome; Z80.42 Family history of malignant neoplasm of prostate; Z86.79 Personal history of other diseases of the circulatory system

== ENCOUNTER → 2018-12-21 | Outpatient (RCR) | payer MEDICARE ==
[2018-11-27 11:24] LABS: HEMATOCRIT 43.9 % (42.0-52.0); LYMPH % 16.7 % (24.0-44.0); MEAN CORPUSCULAR HEMOGLOBIN 33.6 pg (27.0-33.0); MEAN CORPUSCULAR HGB CONC 34.2 g/dl (32.0-36.5); MEAN CORPUSCULAR VOLUME 98.3 fl (80.0-96.0); NEUTROPHILS # 5.6 10^3/uL (1.8-7.7); NEUTROPHILS % 76.3 % (36.0-66.0); RED BLOOD COUNT 4.47 10^6/uL (4.30-6.10); WHITE BLOOD COUNT 7.4 10^3/uL (4.0-10.0)
--- NOTE | 2018-11-28 10:03 | RADONC ---
RADIATION ONCOLOGY SIMULATION NOTE DATE: 11/27/2018 CHART NUMBER: [id number] Mr. Lake was taken to the CT scan for CT simulation of his prostate bed field. CT was accomplished without difficulty or discomfort. Radiation treatment planning is underway and radiation treatments will begin subsequently. An immobilization device was created. It will be used throughout the course of treatment. It was created without difficulty or discomfort. I was physically present throughout the course of CT simulation.
--- NOTE | 2018-12-19 12:11 | RADONC ---
RADIATION ONCOLOGY PROGRESS NOTE DATE OF SERVICE: 12/18/2018 CHART NUMBER: Mr. Lake is presently at a dose of 1080 cGy to his prostate bed and is tolerating treatments quite well at this point with no complaints related to his radiation therapy. He is having no urinary or bowel difficulties and no bone pain. The patient's review of systems is noncontributory. Denies nausea, vomiting, fevers, chills, night sweats, diplopia, headaches, anxiety or depression, anorexia, weight loss, visual disturbances, chest pain, urinary or bowel difficulties, bone pain, or neurological problems. PHYSICAL EXAMINATION The patient's skin is in good condition with no evidence of radiation change present. There is no moist or dry desquamation. The remainder of his physical exam remains unchanged. Mr. Lake is tolerating treatments quite well, and radiation will continue as scheduled.
== END ==
LOC: M ONCR 11-27 10:20
PROVIDERS: ATTEND Radiology Radiation Oncology
DX: C61 Malignant neoplasm of prostate (principal)

== ENCOUNTER 2019-01-17 14:31 | Outpatient (RCR) | payer MEDICARE ==
--- NOTE | 2018-12-25 14:58 | RADONC ---
RADIATION ONCOLOGY PROGRESS NOTE DATE: 12/25/2018 CHART NUMBER: [id number] Mr. aLke with a diagnosis of adenocarcinoma of the prostate is currently receiving postoperative radiotherapy as he has a gradual rising PSA value. His current dose is 1980 cGy of an anticipated 6660 cGy (approximate). REVIEW OF SYSTEMS: Thus far he is tolerating his radiotherapy quite well, denying any nausea, vomiting, diarrhea, dysuria, hematuria or blood per rectum. He is complaining of some fatigue and more specifically some night sweats secondary to his androgen deprivation therapy. It is these symptoms which bother him most. Otherwise he feels that he is tolerating his radiotherapy reasonably well without significant skin irritation. EXAMINATION FINDINGS: The skin within the irradiated volume shows neither erythema nor desquamation. Lymphatics no palpable peripheral lymphadenopathy is appreciated. Lungs are clear. The remainder of the physical examination is unchanged. IMPRESSION: Tolerating radiotherapy quite well. PLAN: Treatments to continue.
--- NOTE | 2019-01-01 16:15 | RADONC ---
RADIATION ONCOLOGY PROGRESS NOTE DATE: 01/01/2019 CHART NUMBER: [id number] PROGRESS NOTE: Mr. Lake is presently at a dose of 2880 cGy to his prostate bed and is tolerating treatments quite well at this point with no significant difficulties related to his radiation therapy. REVIEW OF SYSTEMS: The patient's review of systems is noncontributory. Denies nausea, vomiting, fevers, chills, night sweats, diplopia, headaches, anxiety or depression, anorexia, weight loss, visual disturbances, chest pain, urinary or bowel difficulties, bone pain, or neurological problems. PHYSICAL EXAMINATION: The patient's skin is in good condition with no evidence of radiation change present. There is no moist or dry desquamation. The remainder of his physical exam remains unchanged. Mr. Lake is tolerating treatments quite well and radiation will continue as scheduled.
--- NOTE | 2019-01-09 11:22 | RADONC ---
RADIATION ONCOLOGY PROGRESS NOTE DATE: 01/08/2019 CHART NUMBER: [id number] Mr. Lake is presently at a dose of 3780 cGy to his prostate bed and is tolerating treatments quite well at this point with no complaints related to his radiation therapy. He is having no urinary or bowel difficulties, and no bone pain. REVIEW OF SYSTEMS: The patient's review of systems is noncontributory. He denies nausea, vomiting, fevers, chills, night sweats, diplopia, headaches, anxiety or depression, anorexia, weight loss, visual disturbances, chest pain, urinary or bowel difficulties, bone pain or neurological problems. PHYSICAL EXAMINATION: The patient's skin is in good condition with no evidence of moist or dry desquamation. The remainder of his physical exam remains unchanged. Mr. Lake is tolerating treatments quite well and radiation will continue as scheduled.
--- NOTE | 2019-01-17 09:08 | RADONC ---
RADIATION ONCOLOGY PROGRESS NOTE DATE: 01/15/2019 CHART #: [id number] Mr. Lake is presently at a dose of 4680 cGy to his prostate bed and is tolerating treatments quite well at this point with no complaints related to his radiation therapy other than some loose bowel movements. REVIEW OF SYSTEMS: The patient's review of systems is positive for loose bowel movements but is otherwise noncontributory. Denies nausea, vomiting, fevers, chills, night sweats, diplopia, headaches, anxiety or depression, anorexia, weight loss, visual disturbances, chest pain, urinary or bowel difficulties, bone pain, or neurological problems. PHYSICAL EXAMINATION: The patient's skin is in good condition with no evidence of radiation change present. There is no moist or dry desquamation. The remainder of his physical exam remains unchanged. Mr. Lake is tolerating treatments quite well and radiation will continue as scheduled.
== END 2019-01-20 ==
LOC: M ONCR 14:31
PROVIDERS: ATTEND Radiology Radiation Oncology
DX: C61 Malignant neoplasm of prostate (principal)

== ENCOUNTER 2019-02-01 14:15 | Outpatient (RCR) | payer MEDICARE ==
--- NOTE | 2019-01-23 15:58 | RADONC ---
RADIATION ONCOLOGY TREATMENT NOTE DATE OF SERVICE: 01/23/2019 CHART NUMBER: [id number] Mr. Lake is a 73-year-old gentleman who carries the diagnosis of prostate cancer. He is currently receiving radiation therapy to the prostatic bed. So far he has received a dose of 5400 cGy. He has no problem other than some rectal irritation which I recommended a sitz bath and the use of hydrocortisone cream. He has no significant urinary problems. Otherwise he tolerates treatment well and treatment will continue as planned. MTDD
--- NOTE | 2019-01-29 15:27 | RADONC ---
RADIATION ONCOLOGY PROGRESS NOTE DATE: 01/29/2019 CHART NUMBER: [id number] PROGRESS NOTE: Mr. Lake is presently at a dose of 1620 cGy to his prostate bed and is tolerating treatments quite well at this point with no complaints related to his radiation therapy. He is having no urinary or bowel difficulties. No bone pain. REVIEW OF SYSTEMS: The patient's review of systems is noncontributory. Denies nausea, vomiting, fevers, chills, night sweats, diplopia, headaches, anxiety or depression, anorexia, weight loss, visual disturbances, chest pain, urinary or bowel difficulties, bone pain, or neurological problems. PHYSICAL EXAMINATION: The patient's skin is in good condition with no evidence of radiation change present. There is no moist or dry desquamation. The remainder of his physical exam remains unchanged. Mr. Lake is tolerating treatments quite well and radiation will continue as scheduled.
--- NOTE | 2019-02-02 08:09 | RADONC ---
RADIATION ONCOLOGY TREATMENT SUMMARY DATE: 02/01/2019 CHART #: [id number] DIAGNOSIS: Prostate cancer. STAGE: III C, pT3b, N0M0, Dora score 9 (4-5) grade group 5, PSA 4.7. ECOG PERFORMANCE STATUS: 0. TREATMENT SUMMARY: Mr. Lake is a very pleasant 73-year-old white male with the diagnosis of a stage III C, pT3b, N0M0, poorly differentiated [place] score 9 (4-5) adenocarcinoma of the prostate, grade group 5, with an initial PSA level of 4.7 who presented to us status post robotic-assisted prostatectomy and bilateral lymph node dissection for biochemical failure and now postoperative radiation therapy in attempt to increase the likelihood of achieving local control. We treated the patient to his prostate bed for a dose of 6660 cGy delivered in 37 fractions over 49 elapsed days from 12/11/2018 through 02/01/2019. The patient's prostate bed was treated on the linear accelerator utilizing a 15 MV photon beam via a 3-D conformal technique with anterior, posterior, left and right lateral dunlap. We initially treated a larger field to a dose of 4500 cGy and subsequently coned down in order to maintain the small bowel and other structures within their tolerance limits. Mr. Lake tolerated his treatments quite well and was able complete therapy as prescribed. I have scheduled the patient to see me again in 1 month for further followup. He will also continue to be followed by his other physicians as well. cc: MD Nilo Shahid MD
== END 2019-02-20 ==
LOC: M ONCR 14:15
PROVIDERS: ATTEND Radiology Radiation Oncology
DX: C61 Malignant neoplasm of prostate (principal)

== ENCOUNTER → 2019-03-06 | Outpatient (REF) | payer MEDICARE | LOC: M LABDRWAD 16:05 | PROVIDERS: ATTEND Radiology Radiation Oncology | DX: C61 Malignant neoplasm of prostate (principal) ==

== ENCOUNTER → 2019-03-07 | Outpatient (REF) | payer MEDICARE ==
[2019-03-07 13:15] LABS: BASO % 0.8 % (0.0-1.0); EOS # 0.2 10^3/uL (0.0-0.5); EOS % 3.6 % (0.0-3.0); HEMATOCRIT 35.5 % (42.0-52.0); HEMOGLOBIN 12.5 g/dl (13.5-17.5); LYMPH # 0.7 10^3/uL (1.5-5.0); LYMPH % 13.1 % (24.0-44.0); MEAN CORPUSCULAR HGB CONC 35.2 g/dl (32.0-36.5); MEAN CORPUSCULAR VOLUME 93.7 fl (80.0-96.0); MONO # 0.8 10^3/uL (0.0-0.8); MONO % 16.8 % (0.0-5.0); NEUTROPHILS # 3.2 10^3/uL (1.5-8.5); NEUTROPHILS % 65.5 % (36.0-66.0); PLATELET COUNT, AUTOMATED 163 10^3/uL (150-450); RED BLOOD COUNT 3.79 10^6/uL (4.30-6.10)
[2019-03-07 13:41] LABS: ALBUMIN 3.6 GM/DL (3.2-5.2); ALT/SGPT 21 U/L (12-78); BILIRUBIN,TOTAL 1.4 MG/DL (0.2-1.0); BLOOD UREA NITROGEN 16 MG/DL (7-18); CALCIUM LEVEL 9.2 MG/DL (8.8-10.2); CARBON DIOXIDE LEVEL 31 MEQ/L (21-32); CHLORIDE LEVEL 106 MEQ/L (98-107); CHOLESTEROL LEVEL 196 MG/DL (<200); CHOLESTEROL RISK RATIO 4.083 (<5); CREATININE FOR GFR 0.82 MG/DL (0.70-1.30); FREE T4 0.92 NG/DL (0.76-1.46); GLOMERULAR FILTRATION RATE > 60.0 (>42); GLUCOSE, FASTING 104 MG/DL (70-100); HDL CHOLESTEROL 48 MG/DL (>40); LDL CHOLESTEROL 101 MG/DL (<100); NON-HDL-C 148 MG/DL; POTASSIUM SERUM 3.3 MEQ/L (3.5-5.1); PTH INTACT 52.4 PG/ML (18.5-88.0); SODIUM LEVEL 143 MEQ/L (136-145); TOTAL 25(OH) VITAMIN D 32.5 NG/ML (30.0-100.0); TOTAL PROTEIN 6.4 GM/DL (6.4-8.2); TRIGLYCERIDES LEVEL 237 MG/DL (<150)
[2019-03-07 15:01] LABS: HEMOGLOBIN A1c 4.9 %
== END ==
LOC: M SFHCPLAZ 09:39
PROVIDERS: ATTEND Family Medicine
DX: I12.9 Hypertensive chronic kidney disease with stage 1 through stage 4 chronic kidney disease, or unspecified chronic kidney disease (principal); E78.5 Hyperlipidemia, unspecified; N18.2 Chronic kidney disease, stage 2 (mild)

== ENCOUNTER → 2019-03-07 | Outpatient (CLI) | payer MEDICARE ==
--- NOTE | 2019-03-08 11:52 | RADONC ---
RADIATION ONCOLOGY FOLLOWUP NOTE DATE: 03/07/2019 CHART NUMBER: [id number] DIAGNOSIS: Prostate cancer. STAGE: III C, pT3b, N0, M0, [place] score 9 (4-5), grade group 5, PSA 4.7. ECOG PERFORMANCE STATUS: 0 FOLLOWUP NOTE: Mr. Lake is a very pleasant 73-year-old white male with the diagnosis what appears to be a stage III C, pT3b, N0, M0 poorly differentiated Dora 9 (4-5) adenocarcinoma of prostate, grade group 5 with initial PSA level 4.7 who is presenting to us today for routine followup visit 1 month post completion of external beam radiation therapy. The patient presents today reporting he is doing quite well with no complaints at this time related to his radiation therapy or disease. He is having no urinary or bowel difficulties and no bone pain. REVIEW OF SYSTEMS: The patient's review of systems is noncontributory. Denies nausea, vomiting, fevers, chills, night sweats, diplopia, headaches, anxiety or depression, anorexia, weight loss, visual disturbances, chest pain, urinary or bowel difficulties, bone pain, or neurological problems. PHYSICAL EXAMINATION: The patient is a well-developed, well-nourished male in no acute distress. HEENT exam is normocephalic, atraumatic. Extraocular movements are intact. There is no palpable cervical, supraclavicular, infraclavicular, axillary, or inguinal lymphadenopathy present. Lungs are clear to auscultation and percussion. Heart has a regular rate and rhythm. Abdomen is benign with no hepatosplenomegaly, masses, or tenderness. Rectal examination reveals a normal anal sphincter tone. His prostate bed is smooth with no evidence of nodularity. Skeletal examination reveals no tenderness to pressure or percussion of the bony skeleton. Extremities reveal no clubbing, cyanosis, or edema. Neurologic exam is grossly intact, as is the remainder of the physical examination. ASSESSMENT: The patient is clinically doing well at this point. He is scheduled to see his urologist Dr. Lit George MD for routine followup in May. In light of my impending senior care, I have discharged him from our visits except on a p.r.n. basis. He will continue his close followup with Dr. George and his other physicians as well. cc: MD Nilo Shahid, MD
== END ==
LOC: M ONCR 14:22
PROVIDERS: ATTEND Radiology Radiation Oncology
DX: C61 Malignant neoplasm of prostate (principal)

== ENCOUNTER → 2019-06-11 | Outpatient (REF) | payer MEDICARE ==
[~2019-06-11] MED LIST changes: -IRBE150T12 PO; +IRBE150T7 PO
== END ==
LOC: M SFHCADAM 18:32
PROVIDERS: ATTEND Urology
DX: C61 Malignant neoplasm of prostate (principal)

== ENCOUNTER → 2019-07-23 | Outpatient (REF) | payer MEDICARE ==
[2019-07-23 13:14] LABS: BASO % 0.7 % (0.0-1.0); EOS # 0.2 10^3/uL (0.0-0.5); EOS % 2.7 % (0.0-3.0); HEMATOCRIT 37.9 % (42.0-52.0); HEMOGLOBIN 13.2 g/dl (13.5-17.5); LYMPH # 0.7 10^3/uL (1.5-5.0); LYMPH % 12.3 % (24.0-44.0); MEAN CORPUSCULAR HEMOGLOBIN 32.8 pg (27.0-33.0); MEAN CORPUSCULAR HGB CONC 34.8 g/dl (32.0-36.5); MEAN CORPUSCULAR VOLUME 94.3 fl (80.0-96.0); MONO # 0.7 10^3/uL (0.0-0.8); MONO % 12.1 % (0.0-5.0); NEUTROPHILS # 4.3 10^3/uL (1.5-8.5); NEUTROPHILS % 71.9 % (36.0-66.0); PLATELET COUNT, AUTOMATED 172 10^3/uL (150-450); RED BLOOD COUNT 4.02 10^6/uL (4.30-6.10)
[2019-07-23 13:25] LABS: ALBUMIN 3.6 GM/DL (3.2-5.2); ALT/SGPT 26 U/L (12-78); BILIRUBIN,TOTAL 1.3 MG/DL (0.2-1.0); BLOOD UREA NITROGEN 13 MG/DL (7-18); CALCIUM LEVEL 9.3 MG/DL (8.8-10.2); CARBON DIOXIDE LEVEL 32 MEQ/L (21-32); CHLORIDE LEVEL 105 MEQ/L (98-107); CREATININE FOR GFR 0.84 MG/DL (0.70-1.30); GLOMERULAR FILTRATION RATE > 60.0 (>42); GLUCOSE, FASTING 110 MG/DL (70-100); POTASSIUM SERUM 3.5 MEQ/L (3.5-5.1); SODIUM LEVEL 145 MEQ/L (136-145); TOTAL PROTEIN 6.4 GM/DL (6.4-8.2)
[2019-07-23 14:39] LABS: HEMOGLOBIN A1c 5.1 %
== END ==
LOC: M SFHCADAM 08:50
PROVIDERS: ATTEND Family Medicine
DX: D75.89 Other specified diseases of blood and blood-forming organs (principal); R73.01 Impaired fasting glucose

== ENCOUNTER → 2019-08-13 | Outpatient (REF) | payer MEDICARE ==
[2019-08-13 19:20] LABS: PROSTATIC SPECIFIC AG MONITOR 0.07 NG/ML (< 4.00)
[2019-08-13 21:32] LABS: HEMATOCRIT 40.2 % (42.0-52.0); MEAN CORPUSCULAR HEMOGLOBIN 32.7 pg (27.0-33.0); MEAN CORPUSCULAR HGB CONC 34.8 g/dl (32.0-36.5); MEAN CORPUSCULAR VOLUME 93.9 fl (80.0-96.0); PLATELET COUNT, AUTOMATED 199 10^3/uL (150-450); RED BLOOD COUNT 4.28 10^6/uL (4.30-6.10); WHITE BLOOD COUNT 6.3 10^3/uL (4.0-10.0)
== END ==
LOC: M LABDRWAD 17:14
PROVIDERS: ATTEND Urology
DX: C61 Malignant neoplasm of prostate (principal); N39.3 Stress incontinence (female) (male)

== ENCOUNTER → 2019-08-13 | Outpatient (REF) | payer MEDICARE ==
[2019-08-13 18:55] LABS: BASO % 0.6 % (0.0-1.0); EOS # 0.1 10^3/uL (0.0-0.5); EOS % 2.2 % (0.0-3.0); HEMATOCRIT 40.2 % (42.0-52.0); HEMOGLOBIN 14.1 g/dl (13.5-17.5); LYMPH # 0.9 10^3/uL (1.5-5.0); LYMPH % 14.8 % (24.0-44.0); MEAN CORPUSCULAR HEMOGLOBIN 32.7 pg (27.0-33.0); MEAN CORPUSCULAR HGB CONC 35.1 g/dl (32.0-36.5); MEAN CORPUSCULAR VOLUME 93.3 fl (80.0-96.0); MONO # 0.9 10^3/uL (0.0-0.8); MONO % 14.4 % (0.0-5.0); NEUTROPHILS # 4.3 10^3/uL (1.5-8.5); NEUTROPHILS % 67.7 % (36.0-66.0); PLATELET COUNT, AUTOMATED 190 10^3/uL (150-450); RED BLOOD COUNT 4.31 10^6/uL (4.30-6.10); WHITE BLOOD COUNT 6.3 10^3/uL (4.0-10.0)
[2019-08-13 19:20] LABS: PERCENT SATURATION 29.5 % (19.7-50.0)
[2019-08-13 21:56] LABS: ALBUMIN 3.7 GM/DL (3.2-5.2); ALT/SGPT 28 U/L (12-78); BILIRUBIN,TOTAL 1.2 MG/DL (0.2-1.0); BLOOD UREA NITROGEN 13 MG/DL (7-18); CALCIUM LEVEL 9.8 MG/DL (8.8-10.2); CARBON DIOXIDE LEVEL 30 MEQ/L (21-32); CHLORIDE LEVEL 105 MEQ/L (98-107); CREATININE FOR GFR 0.89 MG/DL (0.70-1.30); GLOMERULAR FILTRATION RATE > 60.0 (>42); GLUCOSE, FASTING 89 MG/DL (70-100); SODIUM LEVEL 142 MEQ/L (136-145); TOTAL PROTEIN 6.7 GM/DL (6.4-8.2)
[2019-08-14 13:56] LABS: TOTAL 25(OH) VITAMIN D 32.7 NG/ML (30.0-100.0)
[2019-08-14 13:57] LABS: PTH INTACT 32.9 PG/ML (18.5-88.0)
[2019-08-14 14:08] LABS: VITAMIN B12 LEVEL 355 PG/ML (247-911)
== END ==
LOC: M SFHCADAM 14:13
PROVIDERS: ATTEND Family Medicine
DX: E55.9 Vitamin D deficiency, unspecified (principal); R73.01 Impaired fasting glucose; D75.89 Other specified diseases of blood and blood-forming organs; D50.9 Iron deficiency anemia, unspecified

== ENCOUNTER → 2019-11-14 | Outpatient (CLI) | payer MEDICARE ==
[~2019-11-14] MED LIST changes: +AMLO25TA PO; +CALCCAP4 PO; +FLON1SPR; +GABA-1171 PO; +MAGO400T2 PO; +VITA200038 PO
== END ==
LOC: M LABSMTC 12:31
PROVIDERS: ATTEND Anesthesiology
DX: Z01.818 Encounter for other preprocedural examination (principal); Z20.828 Contact with and (suspected) exposure to other viral communicable diseases
CPT/HCPCS: C9803; U0003

== ENCOUNTER 2019-11-19 08:23 | Day surgery (SDC) | payer MEDICARE ==
[~2019-11-19] VITALS: Ht 172.7 cm; Wt 98.0 kg
[~2019-11-19 08:23] MED LIST changes: +LIDOCAINE 2% MDV 20ML VIAL As Ordered ONE; +NS 1,000 ML IV ONE; +propofoL 200 MG/20 ML VIAL As Ordered ONE
[2019-11-19] MEDS ORDERED: propofoL 200 MG/20 ML VIAL As Ordered ONE (09:53)
--- NOTE | 2019-11-19 10:09 | ROOR ---
Patient Name: Benjamin Lake Procedure Date: 11/19/2019 9:24 AM Date of : 1945 Age: 74 Room: [facility], [facility]IN [facility] Gender: Male Note Status: Finalized Procedure: Total Colonoscopy to Cecum + Cold Snare Polypectomy + Hemoclips Indications: Rectal bleeding Providers: Eric Torres MD Referring MD: Nilo Stuart MD Requesting Provider: Medicines: Monitored Anesthesia Care Complications: No immediate complications. Procedure: Pre-Anesthesia Assessment: - The heart rate, respiratory rate, oxygen saturations, blood pressure, adequacy of pulmonary ventilation, and response to care were monitored throughout the procedure. The Colonoscope was introduced through the anus and advanced to the cecum, identified by appendiceal orifice and ileocecal valve. The colonoscopy was performed without difficulty. The patient tolerated the procedure well. The quality of the bowel preparation was good. Findings: The perianal and digital rectal examinations were normal. Non-bleeding internal hemorrhoids were found during retroflexion. The hemorrhoids were small and Grade I (internal hemorrhoids that do not prolapse). The mucosa vascular pattern in the rectum was locally increased. Multiple small and large-mouthed diverticula were found in the recto-sigmoid colon, sigmoid colon and descending colon. A medium polyp was found at 20 cm proximal to the anus. The polyp was sessile. The polyp was removed with a cold snare. Resection and retrieval were complete. To prevent bleeding after the polypectomy, one hemostatic clip was successfully placed (MR conditional). There was no bleeding at the end of the procedure. A medium polyp was found at 40 cm proximal to the anus. The polyp was sessile. The polyp was removed with a cold snare. Resection and retrieval were complete. To prevent bleeding after the polypectomy, two hemostatic clips were successfully placed (MR conditional). There was no bleeding at the end of the procedure. The exam was otherwise without abnormality on direct and retroflexion views. Impression: - Non-bleeding internal hemorrhoids. - Increased mucosa vascular pattern in the rectum. - Diverticulosis in the recto-sigmoid colon, in the sigmoid colon and in the descending colon. - One medium polyp at 20 cm proximal to the anus, removed with a cold snare. Resected and retrieved. Clip (MR conditional) was placed. - One medium polyp at 40 cm proximal to the anus, removed with a cold snare. Resected and retrieved. Clips (MR conditional) were placed. - The examination was otherwise normal on direct and retroflexion views. - The exam was otherwise normal to the cecum. - Radiation proctitis. Recommendation: - Patient has a contact number available for emergencies. The signs and symptoms of potential delayed complications were discussed with the patient. Return to normal activities tomorrow. Written discharge instructions were provided to the patient. - High fiber diet. - Discharge patient to home. - Continue present medications. - Await pathology results. - Telephone GI clinic for pathology results in 1 week. Eric Torres MD Eric Torres MD 11/19/2019 10:08:53 AM Electronically signed by Eric Torres MD Number of Addenda: 0 Note Initiated On: 11/19/2019 9:24 AM Estimated Blood Loss: Estimated blood loss: none.
[2019-11-19 10:50] VITALS: BP 114/60
== END 2019-11-19 10:54 | disposition home or self-care (01) ==
LOC: M OPP 08:23
PROVIDERS: ATTEND Internal Medicine Gastroenterology
DX: K63.5 Polyp of colon (principal); K62.5 Hemorrhage of anus and rectum; Z08 Encounter for follow-up examination after completed treatment for malignant neoplasm; K64.0 First degree hemorrhoids; K62.7 Radiation proctitis; K57.30 Diverticulosis of large intestine without perforation or abscess without bleeding; Z85.46 Personal history of malignant neoplasm of prostate; I10 Essential (primary) hypertension; Z79.82 Long term (current) use of aspirin; Z79.899 Other long term (current) drug therapy; Z92.3 Personal history of irradiation

== ENCOUNTER → 2019-12-28 | Outpatient (REF) | payer MEDICARE ==
[~2019-12-28] MED LIST changes: -LIDOCAINE 2% MDV 20ML VIAL As Ordered ONE; -NS 1,000 ML IV ONE; -propofoL 200 MG/20 ML VIAL As Ordered ONE
[2019-12-28 13:05] LABS: BASO % 0.5 % (0.0-1.0); EOS # 0.2 10^3/uL (0.0-0.5); EOS % 2.9 % (0.0-3.0); HEMATOCRIT 40.2 % (42.0-52.0); HEMOGLOBIN 13.9 g/dl (13.5-17.5); LYMPH # 0.9 10^3/uL (1.5-5.0); LYMPH % 13.5 % (24.0-44.0); MEAN CORPUSCULAR HEMOGLOBIN 32.7 pg (27.0-33.0); MEAN CORPUSCULAR HGB CONC 34.6 g/dl (32.0-36.5); MEAN CORPUSCULAR VOLUME 94.6 fl (80.0-96.0); MONO # 0.9 10^3/uL (0.0-0.8); MONO % 13.2 % (0.0-5.0); NEUTROPHILS # 4.5 10^3/uL (1.5-8.5); NEUTROPHILS % 69.7 % (36.0-66.0); PLATELET COUNT, AUTOMATED 188 10^3/uL (150-450); RED BLOOD COUNT 4.25 10^6/uL (4.30-6.10); WHITE BLOOD COUNT 6.5 10^3/uL (4.0-10.0)
== END ==
LOC: M SFHCPLAZ 09:17 → M SFHCADAM 09:49
PROVIDERS: ATTEND Family Medicine
DX: K92.1 Melena (principal)

== ENCOUNTER → 2020-01-03 | Outpatient (CLI) | payer MEDICARE ==
--- NOTE | 2020-01-03 15:17 | REP ---
INDICATION: N62 RT GYNECOMASTIS. Dime-sized palpable lump subareolar region right breast present x2 weeks. COMPARISON: Mammography no comparison imaging. TECHNIQUE: Bilateral CC and MLO) view(s) were taken. 3D tomography was acquired. FINDINGS: There is minimal fibroglandular tissue in the subareolar region on the right and a trace on the left. This is compatible with gynecomastia. No mass lesion is seen. No spiculation or architectural distortion is seen. No microcalcification is observed. Sonographic features. Bilateral subareolar sonography is performed. No evidence of mass, cyst or architectural distortion or acoustic shadowing. No suspicious sonographic features. IMPRESSION: BI-RADS category 2 benign findings. Gynecomastia, right greater than left. Clinical follow-up is advised. This mammogram was interpreted with the aid of an FDA-approved computer-aided detection system. The patient states he had a clinical breast exam in December of 2019. The patient letter being requested is male patient letter M2. RECOMMENDATION: Clinical follow-up is advised. <Electronically signed by Carlos Jaramillo > 01/03/20 1101
== END ==
LOC: M WHC 12:56
PROVIDERS: ATTEND Family Medicine
DX: N62 Hypertrophy of breast (principal)
CPT/HCPCS: 76642; 77066; G0279

== ENCOUNTER → 2020-02-29 | Outpatient (REF) | payer MEDICARE | LOC: M LABDRWAD 16:24 | PROVIDERS: ATTEND Urology | DX: C61 Malignant neoplasm of prostate (principal) ==

== ENCOUNTER → 2020-04-28 | Outpatient (REF) | payer MEDICARE ==
[2020-04-28 12:46] LABS: BASO # 0.1 10^3/uL (0.0-0.2); BASO % 0.9 % (0.0-1.0); EOS # 0.2 10^3/uL (0.0-0.5); HEMATOCRIT 41.4 % (42.0-52.0); LYMPH # 0.8 10^3/uL (1.5-5.0); LYMPH % 13.6 % (24.0-44.0); MEAN CORPUSCULAR HEMOGLOBIN 31.8 pg (27.0-33.0); MEAN CORPUSCULAR HGB CONC 33.8 g/dl (32.0-36.5); MEAN CORPUSCULAR VOLUME 94.1 fl (80.0-96.0); MONO # 0.7 10^3/uL (0.0-0.8); MONO % 12.7 % (2.0-8.0); NEUTROPHILS # 3.9 10^3/uL (1.5-8.5); NEUTROPHILS % 69.4 % (36.0-66.0); PLATELET COUNT, AUTOMATED 177 10^3/uL (150-450); WHITE BLOOD COUNT 5.7 10^3/uL (4.0-10.0)
[2020-04-28 13:11] LABS: ALBUMIN 3.6 GM/DL (3.2-5.2); ALT/SGPT 22 U/L (12-78); BILIRUBIN,TOTAL 1.4 MG/DL (0.2-1.0); BLOOD UREA NITROGEN 14 MG/DL (7-18); CALCIUM LEVEL 9.4 MG/DL (8.8-10.2); CARBON DIOXIDE LEVEL 31 MEQ/L (21-32); CHLORIDE LEVEL 106 MEQ/L (98-107); CHOLESTEROL LEVEL 194 MG/DL (<200); CHOLESTEROL RISK RATIO 4.511 (<5); CREATININE FOR GFR 0.88 MG/DL (0.70-1.30); GLOMERULAR FILTRATION RATE > 60.0 (>42); GLUCOSE, FASTING 108 MG/DL (70-100); HCG, SERUM QUANTITATIVE < 1.0 MIU/ML; HDL CHOLESTEROL 43 MG/DL (>40); LDL CHOLESTEROL 107 MG/DL (<100); NON-HDL-C 151 MG/DL; POTASSIUM SERUM 3.6 MEQ/L (3.5-5.1); SODIUM LEVEL 142 MEQ/L (136-145); TOTAL PROTEIN 6.4 GM/DL (6.4-8.2); TRIGLYCERIDES LEVEL 222 MG/DL (<150)
[2020-04-28 13:16] LABS: FOLLICLE STIMULATING HORMONE 27.3 mIU/mL (1.4-18.1); LUTEINIZING HORMONE 19.5 mIU/mL (3.1-34.6)
[2020-04-29 20:07] LABS: TESTOSTERONE FREE (DIRECT) 15.6 pg/mL (6.6-18.1)
== END ==
LOC: M LABDRWAD 12:19
PROVIDERS: ATTEND Family Medicine
DX: N62 Hypertrophy of breast (principal); C61 Malignant neoplasm of prostate; E78.5 Hyperlipidemia, unspecified; I12.9 Hypertensive chronic kidney disease with stage 1 through stage 4 chronic kidney disease, or unspecified chronic kidney disease; N18.2 Chronic kidney disease, stage 2 (mild)

== ENCOUNTER → 2020-07-07 | Outpatient (REF) | payer MEDICARE ==
[2020-07-07 18:14] LABS: PROSTATIC SPECIFIC AG MONITOR 0.28 NG/ML (< 4.00)
== END ==
LOC: M LABDRWAD 16:40
PROVIDERS: ATTEND Urology
DX: C61 Malignant neoplasm of prostate (principal)

== ENCOUNTER → 2020-11-21 | Outpatient (REF) | payer MEDICARE | LOC: M LAB REF 19:37 | PROVIDERS: ATTEND Urology | DX: C61 Malignant neoplasm of prostate (principal) | CPT/HCPCS: 84403; G0103 ==

== ENCOUNTER → 2021-06-11 | Outpatient (CLI) | payer MEDICARE ==
[~2021-06-11] MED LIST changes: +OMEP-173 PO; -OMEP-218 PO
[2021-06-11 16:22] LABS: BASO # 0.1 10^3/uL (0.0-0.2); BASO % 1.3 % (0.0-1.0); EOS # 0.2 10^3/uL (0.0-0.5); EOS % 3.7 % (0.0-3.0); HEMATOCRIT 41.7 % (42.0-52.0); HEMOGLOBIN 14.7 g/dl (13.5-17.5); LYMPH # 0.9 10^3/uL (1.5-5.0); LYMPH % 15.9 % (24.0-44.0); MEAN CORPUSCULAR HEMOGLOBIN 33.1 pg (27.0-33.0); MEAN CORPUSCULAR HGB CONC 35.3 g/dl (32.0-36.5); MEAN CORPUSCULAR VOLUME 93.9 fl (80.0-96.0); MONO # 0.9 10^3/uL (0.0-0.8); MONO % 16.1 % (2.0-8.0); NEUTROPHILS # 3.4 10^3/uL (1.5-8.5); NEUTROPHILS % 62.8 % (36.0-66.0); PLATELET COUNT, AUTOMATED 168 10^3/uL (150-450); RED BLOOD COUNT 4.44 10^6/uL (4.30-6.10); WHITE BLOOD COUNT 5.5 10^3/uL (4.0-10.0)
== END ==
LOC: M ADAMS 13:45
PROVIDERS: ATTEND Family Medicine
DX: D75.89 Other specified diseases of blood and blood-forming organs (principal); D50.9 Iron deficiency anemia, unspecified

== ENCOUNTER → 2021-06-11 | Outpatient (CLI) | payer MEDICARE ==
[2021-06-11 16:53] LABS: PROSTATIC SPECIFIC AG MONITOR 0.71 NG/ML (< 4.00)
== END ==
LOC: M ADAMS 13:39
PROVIDERS: ATTEND Urology
DX: C61 Malignant neoplasm of prostate (principal); E29.1 Testicular hypofunction

== ENCOUNTER → 2021-08-28 | Outpatient (CLI) | payer MEDICARE | LOC: M ADAMS 14:23 | PROVIDERS: ATTEND Urology | DX: C61 Malignant neoplasm of prostate (principal) ==

== ENCOUNTER → 2021-11-26 | Outpatient (CLI) | payer MEDICARE | LOC: M LABDRWAD 11:12 | PROVIDERS: ATTEND Urology | DX: C61 Malignant neoplasm of prostate (principal) ==

== ENCOUNTER → 2022-02-19 | Outpatient (REF) | payer MEDICARE ==
[2022-02-19 17:12] LABS: BASO # 0.1 10^3/uL (0.0-0.2); EOS # 0.2 10^3/uL (0.0-0.5); EOS % 4.3 % (0.0-3.0); HEMATOCRIT 34.1 % (42.0-52.0); HEMOGLOBIN 12.2 g/dl (13.5-17.5); LYMPH # 0.8 10^3/uL (1.5-5.0); LYMPH % 17.4 % (24.0-44.0); MEAN CORPUSCULAR HEMOGLOBIN 33.5 pg (27.0-33.0); MEAN CORPUSCULAR HGB CONC 35.8 g/dl (32.0-36.5); MEAN CORPUSCULAR VOLUME 93.7 fl (80.0-96.0); MONO # 0.6 10^3/uL (0.0-0.8); MONO % 13.3 % (2.0-8.0); NEUTROPHILS # 3.1 10^3/uL (1.5-8.5); NEUTROPHILS % 63.8 % (36.0-66.0); PLATELET COUNT, AUTOMATED 175 10^3/uL (150-450); RED BLOOD COUNT 3.64 10^6/uL (4.30-6.10); WHITE BLOOD COUNT 4.8 10^3/uL (4.0-10.0)
[2022-02-19 17:16] LABS: ALBUMIN 3.5 G/DL (3.2-5.2); ALKALINE PHOSPHATASE 94 U/L (46-116); ALT/SGPT 14 U/L (7.0-40); AST/SGOT 23 U/L (<34); BILIRUBIN,TOTAL 1.6 MG/DL (0.3-1.2); BLOOD UREA NITROGEN 20 MG/DL (9-23); CARBON DIOXIDE LEVEL 28 MMOL/L (20-31); CHLORIDE LEVEL 106 MMOL/L (98-107); CREATININE FOR GFR 0.92 MG/DL (0.70-1.30); GLOMERULAR FILTRATION RATE > 60.0 (>42); GLUCOSE, FASTING 116 MG/DL (74-106); POTASSIUM SERUM 3.8 MMOL/L (3.5-5.1); PTH INTACT 45.1 PG/ML (18.5-88.0); SODIUM LEVEL 140 MMOL/L (136-145); TOTAL PROTEIN 6.1 G/DL (5.7-8.2)
[2022-02-19 17:18] LABS: FERRITIN 52.8 NG/ML (10.5-307.3); TOTAL 25(OH) VITAMIN D 44.5 NG/ML (20.0-100.0)
[2022-02-19 17:37] LABS: HEMOGLOBIN A1c 5.1 % (4.0-6.0)
[2022-02-19 17:41] LABS: MAU/CREAT RATIO 3.1 MCG/MG (0.0-30.0)
== END ==
LOC: M SFHCADAM 11:25
PROVIDERS: ATTEND Family Medicine
DX: K92.1 Melena (principal); R73.01 Impaired fasting glucose; N18.2 Chronic kidney disease, stage 2 (mild); Z79.899 Other long term (current) drug therapy

== ENCOUNTER → 2022-04-13 | Outpatient (REF) | payer MEDICARE ==
[2022-04-13 13:42] LABS: BASO # 0.1 10^3/uL (0.0-0.2); BASO % 0.8 % (0.0-1.0); EOS # 0.2 10^3/uL (0.0-0.5); HEMATOCRIT 35.4 % (42.0-52.0); HEMOGLOBIN 12.3 g/dl (13.5-17.5); LYMPH # 0.9 10^3/uL (1.5-5.0); LYMPH % 15.3 % (24.0-44.0); MEAN CORPUSCULAR HGB CONC 34.7 g/dl (32.0-36.5); MEAN CORPUSCULAR VOLUME 94.9 fl (80.0-96.0); MONO # 0.7 10^3/uL (0.0-0.8); MONO % 12.5 % (2.0-8.0); NEUTROPHILS % 67.2 % (36.0-66.0); PLATELET COUNT, AUTOMATED 194 10^3/uL (150-450); RED BLOOD COUNT 3.73 10^6/uL (4.30-6.10); WHITE BLOOD COUNT 5.9 10^3/uL (4.0-10.0)
[2022-04-13 14:35] LABS: ALBUMIN 3.5 G/DL (3.2-5.2); BLOOD UREA NITROGEN 20 MG/DL (9-23); CALCIUM LEVEL 9.4 MG/DL (8.3-10.6); CARBON DIOXIDE LEVEL 29 MMOL/L (20-31); CHLORIDE LEVEL 105 MMOL/L (98-107); GLUCOSE, FASTING 121 MG/DL (74-106); PHOSPHORUS LEVEL 3.3 MG/DL (2.4-5.1); POTASSIUM SERUM 3.6 MMOL/L (3.5-5.1); PTH INTACT 57.9 PG/ML (18.5-88.0); SODIUM LEVEL 142 MMOL/L (136-145); VITAMIN B12 LEVEL 215 PG/ML (211-911)
[2022-04-13 19:54] LABS: CREATININE FOR GFR 0.84 MG/DL (0.70-1.30); GLOMERULAR FILTRATION RATE > 60.0 (>42)
== END ==
LOC: M SFHCADAM 10:00
PROVIDERS: ATTEND Family Medicine
DX: E55.9 Vitamin D deficiency, unspecified (principal); D75.89 Other specified diseases of blood and blood-forming organs

== ENCOUNTER → 2022-07-28 | Outpatient (REF) | payer MEDICARE ==
[2022-07-28 13:05] LABS: ALBUMIN 3.5 G/DL (3.2-5.2); ALKALINE PHOSPHATASE 93 U/L (46-116); ALT/SGPT 19 U/L (7.0-40); AST/SGOT 15 U/L (<34); BILIRUBIN,TOTAL 1.2 MG/DL (0.3-1.2); BLOOD UREA NITROGEN 16 MG/DL (9-23); CALCIUM LEVEL 9.9 MG/DL (8.3-10.6); CARBON DIOXIDE LEVEL 29 MMOL/L (20-31); CHLORIDE LEVEL 107 MMOL/L (98-107); CHOLESTEROL LEVEL 189 MG/DL (<200); CHOLESTEROL RISK RATIO 4.05 (<5); CREATININE FOR GFR 0.87 MG/DL (0.70-1.30); GLOMERULAR FILTRATION RATE > 60.0 (>42); GLUCOSE, FASTING 110 MG/DL (74-106); HDL CHOLESTEROL 46.6 MG/DL (>40); LDL CHOLESTEROL 99.4 MG/DL (<100); MAGNESIUM LEVEL 1.7 MG/DL (1.8-2.4); NON-HDL-C 142.4 MG/DL; POTASSIUM SERUM 3.8 MMOL/L (3.5-5.1); SODIUM LEVEL 141 MMOL/L (136-145); TOTAL PROTEIN 5.9 G/DL (5.7-8.2); TRIGLYCERIDES LEVEL 215 MG/DL (<150)
[2022-07-28 13:11] LABS: BASO # 0.1 10^3/uL (0.0-0.2); EOS # 0.2 10^3/uL (0.0-0.5); EOS % 4.7 % (0.0-3.0); HEMATOCRIT 34.6 % (42.0-52.0); HEMOGLOBIN 12.1 g/dl (13.5-17.5); LYMPH # 0.8 10^3/uL (1.5-5.0); MEAN CORPUSCULAR HEMOGLOBIN 32.8 pg (27.0-33.0); MEAN CORPUSCULAR VOLUME 93.8 fl (80.0-96.0); MONO # 0.6 10^3/uL (0.0-0.8); MONO % 13.1 % (2.0-8.0); NEUTROPHILS # 3.1 10^3/uL (1.5-8.5); PLATELET COUNT, AUTOMATED 188 10^3/uL (150-450); RED BLOOD COUNT 3.69 10^6/uL (4.30-6.10); WHITE BLOOD COUNT 4.9 10^3/uL (4.0-10.0)
[2022-07-28 13:13] LABS: FERRITIN 33.8 NG/ML (10.5-307.3)
[2022-07-28 13:25] LABS: HEMATOCRIT 35.2 % (42.0-52.0)
[2022-07-28 13:53] LABS: VITAMIN B12 LEVEL 460 PG/ML (211-911)
== END ==
LOC: M SFHCADAM 09:26
PROVIDERS: ATTEND Family Medicine
DX: D50.9 Iron deficiency anemia, unspecified (principal); E53.8 Deficiency of other specified B group vitamins; E55.9 Vitamin D deficiency, unspecified; R73.01 Impaired fasting glucose; I10 Essential (primary) hypertension

== ENCOUNTER 2022-08-18 14:08 | Outpatient (CLI) | payer MEDICARE ==
[~2022-08-18] VITALS: Ht 175.3 cm; Wt 100.0 kg
[~2022-08-18 14:08] MED LIST changes: +ALBUTEROL SULFATE 2.5MG/0.5ML INH NEB SOLN INH PRN; +EPINEPHrine INJ 1 MG/ML 1ML AMP IM PRN; +FERRIC CARBOXYMALTOSE INJ 750 MG in NS 250 ML (>50kg) IV ONE; +NS 1,000 ML IV SCH; +diphenhydrAMINE 50MG/ML VIAL IV PRN; +methylPREDNISolone 125MG 2ML VIAL IV PRN
[2022-08-18 14:29] VITALS: BP 143/72; O2SAT 97
[2022-08-18] MEDS ORDERED: NS 1,000 ML IV SCH (14:30)
[2022-08-18] MEDS ORDERED: FERRIC CARBOXYMALTOSE INJ 750 MG in NS 250 ML (>50kg) IV ONE ×3 (14:30)
[2022-08-18 16:00] VITALS: BP 163/82; O2SAT 99
== END 2022-08-18 16:00 ==
LOC: M INFU 14:08
PROVIDERS: ATTEND Family Medicine
DX: D50.9 Iron deficiency anemia, unspecified (principal)
CPT/HCPCS: 96365; J1439

== ENCOUNTER 2022-09-13 11:04 | Emergency (ER) | payer MEDICARE ==
[~2022-09-13] VITALS: Ht 175.3 cm; Wt 98.7 kg
[~2022-09-13 11:04] MED LIST changes: -ALBUTEROL SULFATE 2.5MG/0.5ML INH NEB SOLN INH PRN; -EPINEPHrine INJ 1 MG/ML 1ML AMP IM PRN; -FERRIC CARBOXYMALTOSE INJ 750 MG in NS 250 ML (>50kg) IV ONE; -NS 1,000 ML IV SCH; -diphenhydrAMINE 50MG/ML VIAL IV PRN; -methylPREDNISolone 125MG 2ML VIAL IV PRN
[2022-09-13 12:49] LABS: BASO # 0.1 10^3/uL (0.0-0.2); BASO % 0.7 % (0.0-1.0); EOS # 0.2 10^3/uL (0.0-0.5); HEMATOCRIT 35.4 % (42.0-52.0); HEMOGLOBIN 12.2 g/dl (13.5-17.5); LYMPH # 0.8 10^3/uL (1.5-5.0); LYMPH % 10.2 % (24.0-44.0); MEAN CORPUSCULAR HEMOGLOBIN 32.3 pg (27.0-33.0); MEAN CORPUSCULAR HGB CONC 34.5 g/dl (32.0-36.5); MEAN CORPUSCULAR VOLUME 93.7 fl (80.0-96.0); MONO # 0.9 10^3/uL (0.0-0.8); MONO % 12.4 % (2.0-8.0); NEUTROPHILS # 5.3 10^3/uL (1.5-8.5); NEUTROPHILS % 72.6 % (36.0-66.0); PLATELET COUNT, AUTOMATED 235 10^3/uL (150-450); RED BLOOD COUNT 3.78 10^6/uL (4.30-6.10); WHITE BLOOD COUNT 7.4 10^3/uL (4.0-10.0)
[2022-09-13 13:07] LABS: LIPASE 41 U/L (12-53)
[2022-09-13 13:09] LABS: ALKALINE PHOSPHATASE 152 U/L (46-116); ALT/SGPT 103 U/L (7.0-40); AST/SGOT 27 U/L (<34); BLOOD UREA NITROGEN 16 MG/DL (9-23); CALCIUM LEVEL 9.7 MG/DL (8.3-10.6); CARBON DIOXIDE LEVEL 27 MMOL/L (20-31); CHLORIDE LEVEL 105 MMOL/L (98-107); CREATININE FOR GFR 0.84 MG/DL (0.70-1.30); GLOMERULAR FILTRATION RATE > 60.0 (>42); GLUCOSE, FASTING 116 MG/DL (74-106); POTASSIUM SERUM 4.2 MMOL/L (3.5-5.1); SODIUM LEVEL 138 MMOL/L (136-145); TOTAL PROTEIN 6.1 G/DL (5.7-8.2)
[2022-09-13] MEDS ORDERED: ISOVUE-370 76% 100ML VIAL As Ordered ONE (18:51)
[2022-09-13 21:14] VITALS: BP 130/70; TEMP 97.5; O2SAT 97
== END 2022-09-13 21:21 | disposition home or self-care (01) ==
LOC: M ED 11:04
DX: K80.66 Calculus of gallbladder and bile duct with acute and chronic cholecystitis without obstruction (principal); K92.1 Melena; K83.8 Other specified diseases of biliary tract; I10 Essential (primary) hypertension; E78.5 Hyperlipidemia, unspecified; K57.92 Diverticulitis of intestine, part unspecified, without perforation or abscess without bleeding
CPT/HCPCS: 36415; 74177; 76705; 80048; 80076; 83690; 85025; 86850; 86900; 86901; 93005; 99284; Q9967

== ENCOUNTER → 2022-12-02 | Outpatient (REF) | payer MEDICARE ==
[2022-12-02 19:11] LABS: PROSTATIC SPECIFIC AG MONITOR 0.07 NG/ML (< 4.00)
== END ==
LOC: M LABDRWAD 17:48
PROVIDERS: ATTEND Nurse Practitioner Family
DX: C61 Malignant neoplasm of prostate (principal)

== ENCOUNTER → 2023-04-04 | Outpatient (REF) | payer MEDICARE ==
[~2023-04-04] MED LIST changes: +IRBE150T27 PO; -IRBE150T7 PO
[2023-04-04 14:04] LABS: BASO % 0.7 % (0.0-1.0); EOS # 0.3 10^3/uL (0.0-0.5); HEMATOCRIT 36.7 % (42.0-52.0); HEMOGLOBIN 12.4 g/dl (13.5-17.5); LYMPH # 1.1 10^3/uL (1.5-5.0); LYMPH % 20.4 % (24.0-44.0); MEAN CORPUSCULAR HEMOGLOBIN 32.8 pg (27.0-33.0); MEAN CORPUSCULAR HGB CONC 33.8 g/dl (32.0-36.5); MEAN CORPUSCULAR VOLUME 97.1 fl (80.0-96.0); MONO # 0.7 10^3/uL (0.0-0.8); MONO % 12.9 % (2.0-8.0); NEUTROPHILS # 3.2 10^3/uL (1.5-8.5); NEUTROPHILS % 59.8 % (36.0-66.0); PLATELET COUNT, AUTOMATED 198 10^3/uL (150-450); RED BLOOD COUNT 3.78 10^6/uL (4.30-6.10); WHITE BLOOD COUNT 5.3 10^3/uL (4.0-10.0)
[2023-04-04 14:43] LABS: ALBUMIN 3.4 G/DL (3.2-5.2); ALKALINE PHOSPHATASE 98 U/L (46-116); ALT/SGPT 22 U/L (7.0-40); AST/SGOT 16 U/L (<34); BILIRUBIN,TOTAL 1.3 MG/DL (0.3-1.2); BLOOD UREA NITROGEN 14 MG/DL (9-23); CALCIUM LEVEL 9.8 MG/DL (8.3-10.6); CARBON DIOXIDE LEVEL 28 MMOL/L (20-31); CHLORIDE LEVEL 107 MMOL/L (98-107); CREATININE FOR GFR 0.95 MG/DL (0.70-1.30); GLOMERULAR FILTRATION RATE > 60.0 (>42); GLUCOSE, FASTING 119 MG/DL (74-106); PTH INTACT 52.4 PG/ML (18.5-88.0); SODIUM LEVEL 140 MMOL/L (136-145); TOTAL 25(OH) VITAMIN D 31.2 NG/ML (20.0-100.0); TOTAL PROTEIN 5.9 G/DL (5.7-8.2)
[2023-04-04 14:45] LABS: HEMOGLOBIN A1c 5.6 % (4.0-6.0)
== END ==
LOC: M SFHCADAM 09:12
PROVIDERS: ATTEND Family Medicine
DX: D50.9 Iron deficiency anemia, unspecified (principal); E55.9 Vitamin D deficiency, unspecified; R73.01 Impaired fasting glucose

== ENCOUNTER 2023-05-13 17:21 | Emergency (ER) | payer MEDICARE ==
[2023-05-13] MEDS: NS 500 ML IV ONE (17:55)
[2023-05-13 17:59] LABS: HEMATOCRIT 36.7 % (42.0-52.0); HEMOGLOBIN 13.2 g/dl (13.5-17.5); MEAN CORPUSCULAR HEMOGLOBIN 33.6 pg (27.0-33.0); MEAN CORPUSCULAR VOLUME 93.4 fl (80.0-96.0); PLATELET COUNT, AUTOMATED 115 10^3/uL (150-450); RED BLOOD COUNT 3.93 10^6/uL (4.30-6.10); WHITE BLOOD COUNT 11.5 10^3/uL (4.0-10.0)
[2023-05-13] MEDS: IBUPROFEN 100MG 5ML SUSP UDC DYE FREE PO ONE (18:01)
[2023-05-13 18:16] LABS: CK-MB VALUE MASS < 1.0 NG/ML (<3.6); LIPASE 29 U/L (12-53)
[2023-05-13 18:18] LABS: CPK CREATINE PHOSPHOKINASE 1020 U/L (46-171); MB/CK RELATIVE INDEX 0.09 (< OR =4)
[2023-05-13 18:19] LABS: ALBUMIN 3.2 G/DL (3.2-5.2); ALKALINE PHOSPHATASE 182 U/L (46-116); ALT/SGPT 379 U/L (7.0-40); AST/SGOT 304 U/L (<34); BILIRUBIN,DIRECT 6.5 MG/DL (<0.4); BLOOD UREA NITROGEN 37 MG/DL (9-23); CALCIUM LEVEL 9.2 MG/DL (8.3-10.6); CARBON DIOXIDE LEVEL 22 MMOL/L (20-31); CHLORIDE LEVEL 106 MMOL/L (98-107); CREATININE FOR GFR 1.71 MG/DL (0.70-1.30); GLOMERULAR FILTRATION RATE 41.5 (>42); GLUCOSE, FASTING 123 MG/DL (74-106); POTASSIUM SERUM 3.2 MMOL/L (3.5-5.1); SODIUM LEVEL 139 MMOL/L (136-145); THYROID STIMULATING HORMONE 0.455 uIU/ML (0.55-4.78); TOTAL PROTEIN 5.9 G/DL (5.7-8.2)
[2023-05-13 18:21] LABS: ETHYL ALCOHOL (ETHANOL) < 0.003 % (0.000-0.010)
[2023-05-13] MEDS: CEFEPIME HCL 2 GM in D5W MINI-BAG PLUS 50 ML IV ONE (18:23)
[2023-05-13 18:27] LABS: SALICYLATE LEVEL < 3.0 MG/DL (<30)
[2023-05-13] MEDS: POTASSIUM CHLORIDE 10% LIQ 20MEQ/15ML UDC PO ONE (18:31)
[2023-05-13] MEDS: NS 1,000 ML IV SCH (18:35)
[2023-05-13 18:44] LABS: ATYPICAL LYMPH 1 % (0-5); LYMPHOCYTES 12 % (16-44); METAMYELOCYTES 6 % (0-0); MONOCYTES 6 % (0-5); MYELOCYTES 3 % (0-0); NEUTROPHILS 63 % (28-66)
[2023-05-13 18:47] LABS: DOHLE BODIES 1+; PLATELET ESTIMATE DECREASED (NORMAL); TOXIC GRANULATION 1+
[2023-05-13 18:48] LABS: TOXIC VACUOLATION 1+
[2023-05-13 18:58] LABS: APPEARANCE, URINE MANUAL TURBID (CLEAR)
[2023-05-13 18:59] LABS: GLUCOSE, URINE (UA) MANUAL NEGATIVE (NEGATIVE); KETONE, URINE MANUAL NEGATIVE (NEGATIVE); PROTEIN, URINE MANUAL 2+ mg/dL (NEGATIVE)
[2023-05-13 19:00] LABS: UROBILINOGEN, URINE MANUAL NORMAL (NORMAL)
[2023-05-13 19:01] LABS: BILIRUBIN, URINE MANUAL OBSCURED (NEGATIVE); BLOOD URINE MANUAL POSITIVE (NEGATIVE); COLOR, URINE MANUAL ORANGE (YELLOW); LEUKOCYTE ESTERASE, URINE MAN NEGATIVE (NEGATIVE); NITRITE, URINE MANUAL NEGATIVE (NEGATIVE)
[2023-05-13 19:03] LABS: INR 1.68; PARTIAL THROMBOPLASTIN TIME 34.4 SECONDS (24.8-34.2); PROTHROMBIN TIME 19.2 SECONDS (12.5-14.5)
[2023-05-13 19:20] LABS: RENAL EPITHELIAL CELLS, URINE MOD AMOUNT /hpf
[2023-05-13 19:21] LABS: SQUAMOUS EPITHELIAL CELL URINE SMALL AMOUNT /hpf (SMALL AMT); TRANSITIONAL EPI CELLS, URINE SMALL AMOUNT /hpf
[2023-05-13 19:22] LABS: RBC, URINE 15-20 /hpf (0-3)
[2023-05-13 19:23] LABS: BACTERIA, URINE LARGE AMOUNT
[2023-05-13 19:24] LABS: AMORPHOUS SEDIMENT, URINE MOD AMOUNT (NEGATIVE); HYALINE CAST, URINE NONE SEEN /lpf (0-1)
[2023-05-13 19:29] LABS: MB/CK RELATIVE INDEX 0.08 (< OR =4)
[2023-05-13] MEDS: NS 1,000 ML IV ONE ×2 (21:38→23:30)
[2023-05-13] MEDS: NOREPINEPHRINE 4MG IN D5 250ML 4 MG in IV 1 EA IV SCH (21:53)
[2023-05-14 06:50] VITALS: BP 126/76; TEMP 96.9; O2SAT 93
== END 2023-05-14 07:20 | disposition short-term general hospital (02) ==
LOC: EDBD 17:21 → M ED 17:21
DX: R17 Unspecified jaundice (principal); R65.21 Severe sepsis with septic shock; J18.9 Pneumonia, unspecified organism; R79.89 Other specified abnormal findings of blood chemistry; I45.10 Unspecified right bundle-branch block; I25.2 Old myocardial infarction; I10 Essential (primary) hypertension; E78.5 Hyperlipidemia, unspecified; F10.10 Alcohol abuse, uncomplicated; Z79.899 Other long term (current) drug therapy; Z79.1 Long term (current) use of non-steroidal anti-inflammatories (NSAID)
CPT/HCPCS: 36415; 51702; 70450; 71250; 74176; 80047; 80048; 80076; 80143; 81000; 82077; 82140; 82550; 82553; 83605; 83690; 83735; 84443; 84484; 85025; 85610; 85730; 87040; 87077; 87086; 87186; 87486; 87581; 87633; 87798; 93005; 93041; 94760; 96361; 96365; 96366; 99291; 99292; J0692

== ENCOUNTER → 2023-06-09 | Outpatient (REF) | payer MEDICARE ==
[2023-06-09 13:20] LABS: ALBUMIN 3.3 G/DL (3.2-5.2); ALKALINE PHOSPHATASE 112 U/L (46-116); ALT/SGPT 21 U/L (7.0-40); AST/SGOT 22 U/L (<34); BILIRUBIN,TOTAL 1.3 MG/DL (0.3-1.2); BLOOD UREA NITROGEN 12 MG/DL (9-23); CALCIUM LEVEL 9.9 MG/DL (8.3-10.6); CARBON DIOXIDE LEVEL 28 MMOL/L (20-31); CHLORIDE LEVEL 108 MMOL/L (98-107); CHOLESTEROL LEVEL 179 MG/DL (<200); CHOLESTEROL RISK RATIO 4.45 (<5); CREATININE FOR GFR 0.89 MG/DL (0.70-1.30); GLOMERULAR FILTRATION RATE > 60.0 (>42); GLUCOSE, FASTING 116 MG/DL (74-106); HDL CHOLESTEROL 40.2 MG/DL (>40); NON-HDL-C 138.8 MG/DL; POTASSIUM SERUM 3.9 MMOL/L (3.5-5.1); PTH INTACT 67.4 PG/ML (18.5-88.0); SODIUM LEVEL 141 MMOL/L (136-145); TOTAL PROTEIN 5.9 G/DL (5.7-8.2); TRIGLYCERIDES LEVEL 234 MG/DL (<150)
[2023-06-09 13:21] LABS: THYROID STIMULATING HORMONE 1.623 uIU/ML (0.55-4.78)
[2023-06-09 13:22] LABS: TOTAL 25(OH) VITAMIN D 34.8 NG/ML (20.0-100.0)
[2023-06-09 13:23] LABS: FERRITIN 210.2 NG/ML (10.5-307.3)
[2023-06-09 13:24] LABS: FREE T4 1.03 NG/DL (0.89-1.76); VITAMIN B12 LEVEL 597 PG/ML (211-911)
[2023-06-09 13:30] LABS: HEMOGLOBIN A1c 5.1 % (4.0-6.0)
[2023-06-09 13:32] LABS: BASO % 0.6 % (0.0-1.0); EOS # 0.4 10^3/uL (0.0-0.5); EOS % 8.6 % (0.0-3.0); HEMATOCRIT 35.8 % (42.0-52.0); HEMOGLOBIN 12.2 g/dl (13.5-17.5); LYMPH % 18.5 % (24.0-44.0); MEAN CORPUSCULAR HEMOGLOBIN 32.7 pg (27.0-33.0); MEAN CORPUSCULAR HGB CONC 34.1 g/dl (32.0-36.5); MONO # 0.7 10^3/uL (0.0-0.8); MONO % 14.2 % (2.0-8.0); NEUTROPHILS % 57.7 % (36.0-66.0); PLATELET COUNT, AUTOMATED 179 10^3/uL (150-450); RED BLOOD COUNT 3.73 10^6/uL (4.30-6.10); WHITE BLOOD COUNT 5.1 10^3/uL (4.0-10.0)
[2023-06-12 14:07] LABS: INSULIN LEVEL 22.7 uIU/mL (2.6-24.9); SOLUBLE TRANSFERRIN RECEPTOR 21.6 nmol/L (12.2-27.3)
== END ==
LOC: M SFHCPLAZ 08:51
PROVIDERS: ATTEND Family Medicine
DX: R73.01 Impaired fasting glucose (principal); E55.9 Vitamin D deficiency, unspecified; D50.9 Iron deficiency anemia, unspecified; E78.5 Hyperlipidemia, unspecified

== ENCOUNTER → 2023-06-23 | Outpatient (REF) | payer MEDICARE ==
[2023-06-23 18:27] LABS: BASO % 0.8 % (0.0-1.0); EOS # 0.3 10^3/uL (0.0-0.5); EOS % 4.9 % (0.0-3.0); HEMATOCRIT 34.5 % (42.0-52.0); LYMPH # 1.1 10^3/uL (1.5-5.0); LYMPH % 21.2 % (24.0-44.0); MEAN CORPUSCULAR HEMOGLOBIN 32.6 pg (27.0-33.0); MEAN CORPUSCULAR HGB CONC 34.8 g/dl (32.0-36.5); MEAN CORPUSCULAR VOLUME 93.8 fl (80.0-96.0); MONO # 0.7 10^3/uL (0.0-0.8); MONO % 12.9 % (2.0-8.0); NEUTROPHILS # 3.2 10^3/uL (1.5-8.5); PLATELET COUNT, AUTOMATED 179 10^3/uL (150-450); RED BLOOD COUNT 3.68 10^6/uL (4.30-6.10); WHITE BLOOD COUNT 5.3 10^3/uL (4.0-10.0)
[2023-06-23 18:31] LABS: ALBUMIN 3.4 G/DL (3.2-5.2); ALKALINE PHOSPHATASE 101 U/L (46-116); ALT/SGPT 29 U/L (7.0-40); AST/SGOT 21 U/L (<34); BILIRUBIN,TOTAL 1.4 MG/DL (0.3-1.2); BLOOD UREA NITROGEN 14 MG/DL (9-23); CALCIUM LEVEL 9.6 MG/DL (8.3-10.6); CARBON DIOXIDE LEVEL 28 MMOL/L (20-31); CHLORIDE LEVEL 107 MMOL/L (98-107); CREATININE FOR GFR 1.01 MG/DL (0.70-1.30); GLOMERULAR FILTRATION RATE > 60.0 (>42); GLUCOSE, FASTING 101 MG/DL (74-106); POTASSIUM SERUM 3.9 MMOL/L (3.5-5.1); SODIUM LEVEL 140 MMOL/L (136-145); TOTAL PROTEIN 5.9 G/DL (5.7-8.2)
== END ==
LOC: M LABDRWAD 17:35
PROVIDERS: ATTEND Physician Assistant
DX: K83.09 Other cholangitis (principal)

== ENCOUNTER → 2023-07-28 | Outpatient (REF) | payer MEDICARE ==
[~2023-07-28] MED LIST changes: +AMLO2.5T3 PO; +RELU120T PO; +THERTAB52 PO
[2023-07-28 17:16] LABS: BASO % 0.6 % (0.0-1.0); EOS # 0.2 10^3/uL (0.0-0.5); EOS % 3.3 % (0.0-3.0); HEMATOCRIT 36.9 % (42.0-52.0); HEMOGLOBIN 12.9 g/dl (13.5-17.5); LYMPH # 1.1 10^3/uL (1.5-5.0); LYMPH % 20.7 % (24.0-44.0); MEAN CORPUSCULAR HEMOGLOBIN 33.2 pg (27.0-33.0); MEAN CORPUSCULAR VOLUME 95.1 fl (80.0-96.0); MONO # 0.7 10^3/uL (0.0-0.8); MONO % 12.7 % (2.0-8.0); NEUTROPHILS # 3.2 10^3/uL (1.5-8.5); NEUTROPHILS % 62.3 % (36.0-66.0); PLATELET COUNT, AUTOMATED 202 10^3/uL (150-450); RED BLOOD COUNT 3.88 10^6/uL (4.30-6.10); WHITE BLOOD COUNT 5.1 10^3/uL (4.0-10.0)
[2023-07-28 17:30] LABS: INR 0.99; PARTIAL THROMBOPLASTIN TIME 24.1 SECONDS (24.8-34.2); PROTHROMBIN TIME 12.8 SECONDS (12.5-14.5)
[2023-07-28 17:36] LABS: LIPASE 30 U/L (12-53)
[2023-07-28 17:38] LABS: ALBUMIN 3.7 G/DL (3.2-5.2); ALKALINE PHOSPHATASE 106 U/L (46-116); ALT/SGPT 22 U/L (7.0-40); AST/SGOT 16 U/L (<34); BILIRUBIN,TOTAL 1.6 MG/DL (0.3-1.2); BLOOD UREA NITROGEN 19 MG/DL (9-23); CALCIUM LEVEL 10.1 MG/DL (8.3-10.6); CARBON DIOXIDE LEVEL 29 MMOL/L (20-31); CHLORIDE LEVEL 107 MMOL/L (98-107); CREATININE FOR GFR 0.96 MG/DL (0.70-1.30); GLOMERULAR FILTRATION RATE > 60.0 (>42); GLUCOSE, FASTING 119 MG/DL (74-106); SODIUM LEVEL 142 MMOL/L (136-145); TOTAL PROTEIN 6.3 G/DL (5.7-8.2)
[2023-07-28 17:39] LABS: VITAMIN B12 LEVEL 513 PG/ML (211-911)
== END ==
LOC: M SFHCPLAZ 13:02
PROVIDERS: ATTEND Family Medicine
DX: R73.01 Impaired fasting glucose (principal); D50.9 Iron deficiency anemia, unspecified; K80.20 Calculus of gallbladder without cholecystitis without obstruction; K74.00 Hepatic fibrosis, unspecified

== ENCOUNTER → 2023-08-11 | Outpatient (REF) | payer MEDICARE ==
[2023-08-11 17:53] LABS: BASO # 0.1 10^3/uL (0.0-0.2); BASO % 0.8 % (0.0-1.0); EOS # 0.2 10^3/uL (0.0-0.5); EOS % 3.3 % (0.0-3.0); HEMOGLOBIN 12.6 g/dl (13.5-17.5); MEAN CORPUSCULAR HEMOGLOBIN 33.2 pg (27.0-33.0); MONO # 0.8 10^3/uL (0.0-0.8); MONO % 13.5 % (2.0-8.0); NEUTROPHILS # 3.9 10^3/uL (1.5-8.5); NEUTROPHILS % 65.1 % (36.0-66.0); PLATELET COUNT, AUTOMATED 212 10^3/uL (150-450); RED BLOOD COUNT 3.79 10^6/uL (4.30-6.10)
[2023-08-11 18:25] LABS: ALBUMIN 3.6 G/DL (3.2-5.2); ALKALINE PHOSPHATASE 104 U/L (46-116); ALT/SGPT 22 U/L (7.0-40); AST/SGOT 13 U/L (<34); BILIRUBIN,TOTAL 1.4 MG/DL (0.3-1.2); BLOOD UREA NITROGEN 22 MG/DL (9-23); CARBON DIOXIDE LEVEL 30 MMOL/L (20-31); CHLORIDE LEVEL 107 MMOL/L (98-107); CREATININE FOR GFR 0.91 MG/DL (0.70-1.30); GLOMERULAR FILTRATION RATE > 60.0 (>42); GLUCOSE, FASTING 135 MG/DL (74-106); POTASSIUM SERUM 3.8 MMOL/L (3.5-5.1); SODIUM LEVEL 141 MMOL/L (136-145); TOTAL PROTEIN 6.1 G/DL (5.7-8.2)
== END ==
LOC: M LABDRWAD 17:02
PROVIDERS: ATTEND Physician Assistant
DX: K80.50 Calculus of bile duct without cholangitis or cholecystitis without obstruction (principal)

== ENCOUNTER → 2023-08-12 | Outpatient (REF) | payer MEDICARE ==
[2023-08-12 18:09] LABS: PROSTATIC SPECIFIC AG MONITOR 0.04 NG/ML (< 4.00)
== END ==
LOC: M LABDRWAD 16:54
PROVIDERS: ATTEND Nurse Practitioner Family
DX: C61 Malignant neoplasm of prostate (principal)

== ENCOUNTER → 2023-09-05 | Outpatient (REF) | payer MEDICARE | LOC: M SFHCPLAZ 13:06 | PROVIDERS: ATTEND Family Medicine | DX: R73.01 Impaired fasting glucose (principal); D50.9 Iron deficiency anemia, unspecified; K80.20 Calculus of gallbladder without cholecystitis without obstruction; I34.0 Nonrheumatic mitral (valve) insufficiency; I44.0 Atrioventricular block, first degree ==

== ENCOUNTER → 2023-10-14 | Outpatient (CLI) | payer MEDICARE ==
[~2023-10-14] MED LIST changes: -ATOR1TAB21; +ATOR1TAB21 PO; +FERR325T3 PO; +GABA-282 PO; +LUTE40CA2 PO; +MAGN400T33 PO; +STOO100C30 PO; +TRAZ-252 PO; +VITA100093 PO; +VITA500T40 PO
[2023-10-14 13:23] LABS: BASO # 0.1 10^3/uL (0.0-0.2); BASO % 1.1 % (0.0-1.0); EOS # 0.2 10^3/uL (0.0-0.5); EOS % 5.1 % (0.0-3.0); HEMATOCRIT 35.2 % (42.0-52.0); HEMOGLOBIN 12.3 g/dl (13.5-17.5); LYMPH # 0.8 10^3/uL (1.5-5.0); LYMPH % 17.4 % (24.0-44.0); MEAN CORPUSCULAR HEMOGLOBIN 33.2 pg (27.0-33.0); MEAN CORPUSCULAR HGB CONC 34.9 g/dl (32.0-36.5); MEAN CORPUSCULAR VOLUME 95.1 fl (80.0-96.0); MONO # 0.6 10^3/uL (0.0-0.8); MONO % 13.4 % (2.0-8.0); NEUTROPHILS % 62.8 % (36.0-66.0); PLATELET COUNT, AUTOMATED 194 10^3/uL (150-450); WHITE BLOOD COUNT 4.7 10^3/uL (4.0-10.0)
[2023-10-14 13:48] LABS: ALBUMIN 3.6 G/DL (3.2-5.2); ALKALINE PHOSPHATASE 120 U/L (46-116); ALT/SGPT 19 U/L (7.0-40); AST/SGOT 15 U/L (<34); BILIRUBIN,TOTAL 1.2 MG/DL (0.3-1.2); BLOOD UREA NITROGEN 19 MG/DL (9-23); CALCIUM LEVEL 9.7 MG/DL (8.3-10.6); CARBON DIOXIDE LEVEL 30 MMOL/L (20-31); CHLORIDE LEVEL 111 MMOL/L (98-107); CHOLESTEROL LEVEL 203 MG/DL (<200); CHOLESTEROL RISK RATIO 4.97 (<5); GLOMERULAR FILTRATION RATE > 60.0 (>42); GLUCOSE, FASTING 119 MG/DL (74-106); HDL CHOLESTEROL 40.8 MG/DL (>40); LDL CHOLESTEROL 104.6 MG/DL (<100); MAGNESIUM LEVEL 1.8 MG/DL (1.8-2.4); NON-HDL-C 162.2 MG/DL; POTASSIUM SERUM 3.6 MMOL/L (3.5-5.1); SODIUM LEVEL 140 MMOL/L (136-145); TOTAL PROTEIN 6.2 G/DL (5.7-8.2); TRIGLYCERIDES LEVEL 288 MG/DL (<150)
[2023-10-14 13:50] LABS: FERRITIN 190.3 NG/ML (10.5-307.3); THYROID STIMULATING HORMONE 1.282 uIU/ML (0.55-4.78)
[2023-10-14 14:04] LABS: VITAMIN B12 LEVEL 722 PG/ML (211-911)
== END ==
LOC: M PLALAB 10-13 12:00
PROVIDERS: ATTEND Family Medicine
DX: D50.9 Iron deficiency anemia, unspecified (principal); E78.00 Pure hypercholesterolemia, unspecified

== ENCOUNTER → 2023-10-25 | Outpatient (CLI) | payer MEDICARE | LOC: M RAD 16:10 | PROVIDERS: ATTEND Physician Assistant | DX: K80.50 Calculus of bile duct without cholangitis or cholecystitis without obstruction (principal) ==

== ENCOUNTER 2023-10-27 07:31 | Day surgery (SDC) | payer MEDICARE ==
[~2023-10-27] VITALS: Ht 175.3 cm; Wt 102.5 kg
[~2023-10-27 07:31] MED LIST changes: +KETOROLAC 60MG 2ML VIAL As Ordered ONE; +LIDOCAINE 2% 100MG/5ML SDV (FOR ANES.) As Ordered ONE; +MIDAZOLAM INJ 2MG/2ML VIAL As Ordered ONE; +ONDANSETRON 4MG 2ML VIAL As Ordered ONE; +ROCURONIUM BROMIDE 50MG/5ML VIAL As Ordered ONE; +SUGAMMADEX SODIUM 500 MG/5 ML VIAL (BRIDION) As Ordered ONE; +fentaNYL 100 MCG/2 ML INJECTION As Ordered ONE; +propofoL 200 MG/20 ML VIAL As Ordered ONE
[2023-10-27] MEDS ORDERED: PHENYLephrine 500MCG 5ML (100MCG/ML) SYRINGE As Ordered ONE (09:12)
[2023-10-27] MEDS ORDERED: ePHEDrine SULFATE 25 MG/5 ML(5MG/ML) SYRINGE As Ordered ONE (09:12)
[2023-10-27] MEDS ORDERED: ACETAMINOPHEN 1000MG 100ML IV BAG As Ordered ONE (11:03)
[2023-10-27] MEDS: ceFAZolin 2 GM/D5W 50 ML IV BAG As Ordered ONE (11:04)
[2023-10-27] MEDS ORDERED: HYDROmorphone HCL 2MG/ML 1ML VIAL As Ordered ONE (11:44)
[2023-10-27] MEDS ORDERED: fentaNYL 100 MCG/2 ML INJECTION IV PRN (11:50)
[2023-10-27] MEDS ORDERED: LR 1,000 ML IV SCH (11:50)
[2023-10-27] MEDS ORDERED: ONDANSETRON 4MG 2ML VIAL IV PRN (11:50)
[2023-10-27] MEDS ORDERED: oxyCODONE 5MG TAB PO PRN (11:50)
[2023-10-27] MEDS ORDERED: HYDROMORPHONE HCL 0.5 MG/ 0.5 ML SYRINGE IV PRN (11:50)
[2023-10-27 13:15] VITALS: BP 131/74; TEMP 97.8; O2SAT 96
== END 2023-10-27 13:37 | disposition home or self-care (01) ==
LOC: M SDC 07:31
PROVIDERS: ATTEND Surgery
DX: K80.62 Calculus of gallbladder and bile duct with acute cholecystitis without obstruction (principal); K66.0 Peritoneal adhesions (postprocedural) (postinfection); K82.8 Other specified diseases of gallbladder; R18.8 Other ascites; I05.9 Rheumatic mitral valve disease, unspecified; I67.1 Cerebral aneurysm, nonruptured; N28.89 Other specified disorders of kidney and ureter; Z79.899 Other long term (current) drug therapy
CPT/HCPCS: 47562; J0131; J0665; J0690; J1100; J1170; J1885; J2250; J2405; J3010; S2900

== ENCOUNTER → 2024-04-13 | Outpatient (CLI) | payer MEDICARE ==
[~2024-04-13] MED LIST changes: +GABA-1172 PO; -GABA-282 PO; -KETOROLAC 60MG 2ML VIAL As Ordered ONE; -LIDOCAINE 2% 100MG/5ML SDV (FOR ANES.) As Ordered ONE; -MIDAZOLAM INJ 2MG/2ML VIAL As Ordered ONE; -ONDANSETRON 4MG 2ML VIAL As Ordered ONE; -ROCURONIUM BROMIDE 50MG/5ML VIAL As Ordered ONE; -SUGAMMADEX SODIUM 500 MG/5 ML VIAL (BRIDION) As Ordered ONE; -fentaNYL 100 MCG/2 ML INJECTION As Ordered ONE; -propofoL 200 MG/20 ML VIAL As Ordered ONE
[2024-04-13 15:55] LABS: PROSTATIC SPECIFIC AG MONITOR 0.05 NG/ML (< 4.00)
== END ==
LOC: M PLALAB 13:58
PROVIDERS: ATTEND Urology
DX: C61 Malignant neoplasm of prostate (principal)

== ENCOUNTER → 2024-04-16 | Outpatient (CLI) | payer MEDICARE ==
[2024-04-16 15:02] LABS: BASO # 0.1 10^3/uL (0.0-0.2); EOS # 0.2 10^3/uL (0.0-0.5); EOS % 4.5 % (0.0-3.0); HEMOGLOBIN 13.2 g/dl (13.5-17.5); LYMPH # 0.9 10^3/uL (1.5-5.0); LYMPH % 17.3 % (24.0-44.0); MEAN CORPUSCULAR HEMOGLOBIN 31.4 pg (27.0-33.0); MEAN CORPUSCULAR HGB CONC 34.7 g/dl (32.0-36.5); MEAN CORPUSCULAR VOLUME 90.5 fl (80.0-96.0); MONO # 0.6 10^3/uL (0.0-0.8); MONO % 12.3 % (2.0-8.0); NEUTROPHILS # 3.3 10^3/uL (1.5-8.5); NEUTROPHILS % 64.5 % (36.0-66.0); PLATELET COUNT, AUTOMATED 197 10^3/uL (150-450); WHITE BLOOD COUNT 5.1 10^3/uL (4.0-10.0)
[2024-04-16 15:08] LABS: ALBUMIN 3.6 G/DL (3.2-5.2); ALKALINE PHOSPHATASE 109 U/L (40-129); ALT/SGPT 30 U/L (7.0-40); AST/SGOT 21 U/L (<34); BILIRUBIN,TOTAL 1.2 MG/DL (0.3-1.2); BLOOD UREA NITROGEN 22 MG/DL (9-23); CALCIUM LEVEL 9.8 MG/DL (8.3-10.6); CARBON DIOXIDE LEVEL 30 MMOL/L (20-31); CHLORIDE LEVEL 105 MMOL/L (98-107); CREATININE FOR GFR 0.92 MG/DL (0.70-1.30); FERRITIN 165.5 NG/ML (10.5-307.3); GLOMERULAR FILTRATION RATE > 60.0 (>42); GLUCOSE, FASTING 123 MG/DL (74-106); POTASSIUM SERUM 3.6 MMOL/L (3.5-5.1); SODIUM LEVEL 143 MMOL/L (136-145); TOTAL PROTEIN 6.5 G/DL (5.7-8.2)
[2024-04-16 15:35] LABS: HEMOGLOBIN A1c 5.3 % (4.0-6.0)
== END ==
LOC: M PLALAB 12:20
PROVIDERS: ATTEND Family Medicine
DX: I10 Essential (primary) hypertension (principal); D50.9 Iron deficiency anemia, unspecified

== ENCOUNTER → 2024-09-25 | Outpatient (REF) | payer MEDICARE | LOC: M SFHCPLAZ 16:52 | PROVIDERS: ATTEND Family Medicine | DX: D49.9 Neoplasm of unspecified behavior of unspecified site (principal) ==

== ENCOUNTER → 2024-10-08 | Outpatient (CLI) | payer MEDICARE ==
[2024-10-08 15:39] LABS: TESTOSTERONE 31.0 NG/DL (241-827)
[2024-10-10 14:38] LABS: PROSTATIC SPECIFIC AG MONITOR 0.07 NG/ML (< 4.00)
== END ==
LOC: M PLALAB 13:37
PROVIDERS: ATTEND Nurse Practitioner Family
DX: C61 Malignant neoplasm of prostate (principal)

== ENCOUNTER → 2024-12-26 | Outpatient (CLI) | payer MEDICARE ==
[2024-12-26 14:03] LABS: BASO # 0.1 10^3/uL (0.0-0.2); BASO % 1.1 % (0.0-1.0); EOS # 0.3 10^3/uL (0.0-0.5); EOS % 5.0 % (0.0-3.0); LYMPH # 1.2 10^3/uL (1.5-5.0); LYMPH % 22.5 % (24.0-44.0); MONO # 0.6 10^3/uL (0.0-0.8); MONO % 10.5 % (2.0-8.0); NEUTROPHILS # 3.2 10^3/uL (1.5-8.5); NEUTROPHILS % 60.7 % (36.0-66.0); PLATELET COUNT, AUTOMATED 198 10^3/uL (150-450)
[2024-12-26 14:34] LABS: IRON (FE) 87.0 UG/DL (65-175); PERCENT SATURATION 27.1 % (19.7-50.0)
[2024-12-26 14:35] LABS: ALT/SGPT 31.0 U/L (7.0-40); AST/SGOT 24.0 U/L (<34); CALCIUM LEVEL 9.9 MG/DL (8.3-10.6); CARBON DIOXIDE LEVEL 28.0 MMOL/L (20-31); CHLORIDE LEVEL 107.0 MMOL/L (98-107); CHOLESTEROL LEVEL 166.0 MG/DL (<200); CHOLESTEROL RISK RATIO 4.0 (<5); CREATININE FOR GFR 0.98 MG/DL (0.70-1.30); GLOMERULAR FILTRATION RATE 78.9 (>42); LDL CHOLESTEROL 89.7 MG/DL (<100); MAGNESIUM LEVEL 2.0 MG/DL (1.8-2.4); NON-HDL-C 124.5 MG/DL; POTASSIUM SERUM 3.8 MMOL/L (3.5-5.1); SODIUM LEVEL 145.0 MMOL/L (136-145); TRIGLYCERIDES LEVEL 174.0 MG/DL (<150)
== END ==
LOC: M PLALAB 11:47
PROVIDERS: ATTEND Family Medicine
DX: D50.9 Iron deficiency anemia, unspecified (principal); R73.01 Impaired fasting glucose; I34.0 Nonrheumatic mitral (valve) insufficiency; I10 Essential (primary) hypertension; K74.00 Hepatic fibrosis, unspecified